=== PATIENT | female | born 1950 | race Caucasian/White ===

== ENCOUNTER 2020-10-20 04:31 | Inpatient (IN) | payer MEDICARE, SELFPAY ==
[2020-10-20 03:45] VITALS: BP 103/81; PULSE 93; RESP 18; TEMP 36; O2SAT 95
--- NOTE | 2020-10-20 03:45 | ADMGEN ---
This patient, Birgit Morgan, was admitted to [address] [place] [address] Room 300-01. Patient/family oriented to hospital policies and general routines including ID bracelet, bed and alarms, visiting hours, pain management, procedures, bathroom and other care routines, personal items, smoking policy, room service/diet, and visiting hours. Information on how to activate the Rapid Response Team has been discussed. Patient/Family are encouraged to report perceived risks to care and to ask questions if they do not understand what they are told or what they should do.
[2020-10-20 03:47] VITALS: BMI 33.7
--- NOTE | 2020-10-20 04:05 | PC.NURSE ---
Report from [facility] by September, RN [id number]
[2020-10-20] MEDS: SODIUM CHLORIDE 0.9% IV 1,000 ML 100 ML IV CONT ×2 (05:39→19:52)
[2020-10-20 06:00] VITALS: BP 101/54; PULSE 88; RESP 20; TEMP 36.5; O2SAT 98
[2020-10-20 06:16] LABS: Basophils Absolute Auto 0.1 K/mm3 (0.0-0.1); Basophils Percent Auto 0.6 % (0.2-1.2); Eosinophils Absolute Auto 0.3 K/mm3 (0-0.3); Eosinophils Percent Auto 2.8 % (0-4.4); Hematocrit 39.8 % (37.0-47.0); Hemoglobin 12.5 g/dL (12.0-15.0); Immature Granulocyte Absolute 0.03 K/mm3 (0.00-0.031); Immature Granulocyte Percent A 0.3 % (0-0.5); Lymphocytes Absolute Auto 2.29 K/mm3 (0.9-3.2); Lymphocytes Percent Auto 22.8 % (18.3-44.2); Mean Corpuscular HGB Conc 31.4 g/dl (32-36); Mean Corpuscular Hemoglobin 28.3 pg (26-34); Mean Corpuscular Volume 90.2 fl (80-100); Mean Platelet Volume 10.9 fl (7.4-10.4); Monocytes Percent Auto 10.2 % (2.6-8.5); Neutrophils Absolute Auto 6.4 K/mm3 (1.3-6.7); Neutrophils Percent Auto 63.3 % (45.5-73.1); Platelet Count Result 202 k/mm3 (150-375); Red Blood Count 4.41 M/mm3 (4.2-5.4); Red Cell Distribution Width 13.6 % (11.5-14.5)
[2020-10-20 06:25] LABS: Anion Gap 7 mmol/L (8-16); Blood Urea Nitrogen 12 mg/dL (7-17); Calcium 8.1 mg/dL (8.4-10.2); Carbon Dioxide 24 mmol/L (22-30); Chloride 108 mmol/L (98-107); Estimated CRCL calculation 55 ml/min; Estimated Glomerular Filt Rate > 60; Glucose 110 mg/dL (65-105); Magnesium 1.7 mg/dL (1.6-2.3); Potassium 3.9 mmol/L (3.4-5.0); Sodium 139 mmol/L (137-145)
--- NOTE | 2020-10-20 07:59 | PM.IMHP ---
H&P: HPI History of Present Illness Date/Time: 10/20/20 07:59 This is a 70-year-old female with past medical history significant for GERD, H pylori, chronic constipation, diverticulosis, recurrent diverticulitis according to patient has have for bouts of diverticulitis in 9 months she presented to emergency room at the town where she lives patient states that she has been constipated was trying to go Tuesday morning while using the toilet when she failed sudden pain that was diffusely localized and bloating she has had a small bowel movements through the weekend in diarrhea form, patient noted increased cramping and pain worsening over the course of about a day which finally forced her to go to the emergency room she took Tylenol extra-strength and applied a heating pad to the area pain is now localized to the left lower quadrant and inguinal fossa worse when doing a Valsalva maneuver or straining herself like getting up from bed or sitting. Patient had a CT of abdomen and pelvis performed outside of this hospital she is from [facility] which is 50 miles from here. PATIENT DENIES ANY CHILLS RIGORS OR FEVER, felt nauseated but no vomiting, decreased appetite as well has not been able to eat anything ever since. Patient had been taking in a combination antibiotic drug with clarithromycin and be small with salicylate for a positive urease breath test in the outpatient setting as well. Preliminary workup hematology and chemistry panels did not show any abnormal findings. Chief Complaint: Abdominal pain. Review of Systems Review of Systems: Narrative: Patient presented to emergency room due to worsening abdominal pain with bloating and diarrhea small bowel movements about 6 total Constitutional: Comments: Decreased appetite no fevers no rigors no chills Cardiovascular: Comments: No chest pain no PND no orthopnea no leg swelling Respiratory: Comments: No shortness of breath no cough no sputum production Gastrointestinal: Comments: Abdominal pain bloating diarrhea and nausea Genitourinary: Comments: No pain or burning with urine Musculoskeletal: Comments: No joint or muscle pain Integumentary/Breasts: Comments: No rashes Neurologic: Comments: No sensorimotor deficit Endocrine: Comments: No heat or cold intolerance no polydipsia polyphagia or polyuria Hematologic/Lymphatic: Comments: No lymphadenopathies [facility] Family History Family History (Updated 10/20/20 @ 04:29 by Carole Quinonez RN) Father Heart failure Mother Social History Social History Smoking status: Never smoker Alcohol intake: current Drinks per week: 1 Substance use: never Spiritual care concerns: No Meds Home Medications and Allergies Home Medications Medication Instructions Recorded Confirmed Type cetirizine [Zyrtec] 10 mg PO DAILY 10/20/20 10/20/20 History ciprofloxacin HCl 500 mg PO Q12H 10/20/20 10/20/20 History neomycin 500 mg PO Q12H 10/20/20 10/20/20 History prucalopride [Motegrity] 2 mg PO DAILY 10/20/20 10/20/20 History rabeprazole 20 mg PO DAILY 10/20/20 10/20/20 History vitamin B complex [B 1 tablet PO DAILY 10/20/20 10/20/20 History Complex-Vitamin B12] Allergies Allergy/AdvReac Type Severity Reaction Status Date / Time grass pollen Allergy Hives Verified 10/20/20 04:03 Sulfa (Sulfonamide Allergy Hives Verified 10/20/20 04:03 Antibiotics) Yjgpeus-Img-Fbl Reductase AdvReac Muscle Pain Verified 10/20/20 04:03 Inhibitor Vital Signs Vital Signs - 24 hr 10/20/20 03:45 10/20/20 06:00 Temperature 96.8 F L 97.7 F Pulse Rate 93 88 Respiratory Rate 18 20 Blood Pressure 103/81 101/54 L Pulse Oximetry 95 98 Exam Narrative: Exam Narrative: Patient is well-appearing sitting in bed in no acute distress Const: General: comfortable, no acute distress, well developed, alert and awake Nutritional Appearance: average body habitus Orientation/consciousness: patient oriented x3 HENMT:
[2020-10-20] MEDS: MORPHINE SULFATE (*CRX) 2 MG/ML INJ IV PUSH (08:47)
--- NOTE | 2020-10-20 09:58 | PM.CNGS ---
Assessment and Plan Assessment and plan (1) Diverticulitis: Code(s): K57.92 - Diverticulitis of intestine, part unspecified, without perforation or abscess without bleeding Status: Acute Assessment and Plan: CT scan report from the [facility] was reviewed and suggests acute diverticulitis of the distal descending colon with small microperforation. No drainable fluid collection or abscess formation. The disc for the CT scan will be taken to Radiology today so this can be reviewed by our radiologist and Dr. Aguirre. We have also requested the Colonoscopy report from Dr. Baptiste at [place], [place] from February of 2020. This is her 4th episode of diverticulitis in the past year. We will continue to treat her with IV Zosyn, bowel rest, IV fluids, and analgesics for now. As she clinically improves, we will start to slowly advance her diet to a low fiber diet. No indication for urgent surgical intervention. We will try to avoid surgery in the acute phase of the diverticulitis, which would give her the best chance of avoiding a colostomy. After a few weeks of treatment, we would plan to see the patient in our office to schedule a laparoscopic sigmoid resection. I discussed the disease process and plan with the patient. Continue to monitor the patient with serial abdominal exams and labs. Thank you for allowing us to see the patient consultation we will continue to follow along with you. (2) Chronic constipation: Code(s): K59.09 - Other constipation Status: Acute Assessment and Plan: Additional Plan I have discussed the patient's case and plan of care with Dr. Aguirre. Also to note, there is question of possible positive urease breath test as an outpatient through her Public Address Servicer, in which she was receiving oral antibiotics for this. Now on famotidine IV while NPO. Would continue PPI and follow-up with GI as scheduled. History of Present Illness Consult details Consult date: 10/20/20 Reason for consult: other (Acute diverticulitis with micro perforation) Requesting physician: Dioni Ruiz MD Narrative: This is a 70-year-old female with a history of multiple episodes of diverticulitis, chronic constipation, and GERD, who was a direct admit to [facility] overnight from [facility] in [place], [place]. She has a longstanding history of chronic constipation, and was recently referred to a cordwainer, Dr. Benito, for this. The patient had her initial episode of diverticulitis requiring hospitalization in December of 2019, which was treated with antibiotics. She had another episode in February of 2020 and August of 2020 that were both treated outpatient with antibiotics. The patient completed her course of oral antibiotics the last week of August, and reportedly all symptoms had resolved at that point. She reports complete compliance of her antibiotics as well. In early September, she had performed an outpatient breath test with her cordwainer and was placed on ciprofloxacin and neomycin due to a positive result. She is currently on these antibiotics. Three days ago, the patient reported feeling constipated. Overnight, she began having left lower quadrant abdominal pain. This felt similar to previous episodes of diverticulitis. She had 1 episode of nausea and vomiting 3 nights ago, but no issues since. No fever or chills. The abdominal pain continued to worsen, and she eventually presented to [facility] ER last night. On review of her chart, labs showed of white blood cell count of 11,100, and were otherwise unremarkable. CT scan of the abdomen and pelvis report suggested findings consistent with acute diverticulitis of the distal descending colon with small micro perforation in the adjacent pericolonic soft tissues. No drainable fluid collection or abscess formation. Vital signs were stable and she was afebrile. The decision was made to transfer the patient to [facility] for
[2020-10-20] MEDS: FAMOTIDINE 20 MG/2 ML VIAL IV PUSH ×2 (11:00→19:59)
[2020-10-20] MEDS: ENOXAPARIN 40 MG/0.4 ML SYRINGE SUB-Q (11:00)
[2020-10-20 14:00] VITALS: BP 97/63; PULSE 56; RESP 20; TEMP 36.6; O2SAT 94
--- NOTE | 2020-10-20 15:54 | PM.PNGS ---
Progress Note: A&P Assessment and Plan (1) Diverticulitis: Code(s): K57.92 - Diverticulitis of intestine, part unspecified, without perforation or abscess without bleeding Status: Acute Assessment and Plan: recurrent acute diverticulitis. It is noted that patient was on some chronic antibiotics with metronidazole and ciprofloxacin prescribed by her heater installer Dr. Benito. Continue bowel rest and antibiotics with p.r.n. analgesics. Will follow with serial abdominal exams and lab work. If diverticulitis can resolve, I would then recommend laparoscopic sigmoidectomy in possibly a month. We will need to obtain and review her colonoscopy report from February. (2) Chronic constipation: Code(s): K59.09 - Other constipation Status: Chronic Assessment and Plan: Could have a diverticular stricture contributing to her constipation. Constipation is very longstanding however. On set of diverticulitis usually associated with an episode of constipation. Plan remains as above. Subjective Subjective Date/Time Seen: 10/20/20 15:54 Patient reports: pain is less Interval history: The patient is a 70-year-old woman whom I was called about early this morning regarding transfer here from [facility]. She lives in [facility]. She has a history of chronic constipation and actually sees a heater installer at [place]. very [employer] I believe named for this. The patient became constipated again about 3 days ago and then started having left lower quadrant abdominal pain. She had nausea and vomiting. The pain worsened and she went to the emergency room room at [facility]. [place] [id number]. [place] scan showed evidence of acute diverticulitis with micro perforation. Per her request, she was transferred here. She received a dose of Zosyn prior to transfer. She has been taking metronidazole and ciprofloxacin chronically at the direction of her heater installer. She was taking these prior to onset of her diverticulitis. Currently she feels comfortable but reports she had pain medication about 4 hours ago. She also reports that this is her 4th episode of acute diverticulitis since last December, about 9 months ago. The 1st episode of diverticulitis she was admitted. She had a colonoscopy in February by in [place]. This was apparently negative but we are requesting the results. She had another episode of diverticulitis in August. Both the February and August episodes were treated as an outpatient. She was seen early this morning about 7:00 a.m. in consultation regarding recurrent acute diverticulitis. Review of Systems Review of Systems: All systems reviewed & are unremarkable except as noted in HPI and below Constitutional: Constitutional: Denies chills, Denies fever(s) and Denies headache(s) Gastrointestinal: Gastrointestinal: Reports as per HPI, Reports abdominal pain, Reports constipation, Reports GI cramping, Reports nausea and Reports vomiting Neurologic: Denies confusion and Denies headache(s) Exam Const: General: comfortable and no acute distress; No confusion Orientation/consciousness: patient oriented x3 and No confusion GI: Inspection: non-distended and scar ( Lower abdominal midline scar) GI Palp: Yes Soft to palpation, Yes Tenderness to palpation present (GI) ( left lower quadrant), Yes Guarding due to palpation present (GI), No Hernia present, No Palpable mass present and No Rebound tenderness present Auscultation: Hypoactive bowel sounds present Neuro: General: patient oriented x3, no focal motor deficits and No confusion Extrem: General: no calf tenderness and no edema Psych: Affect: normal affect Insight: Good insight present (Psych) Judgement: Good judgement present (Psych) Objective Data Vital Signs Vital Signs: Vital Signs - 24 hr 10/20/20 03:45 10/20/20 06:00 10/20/20 14:00 Temperature 36.0 C L 36.5 C 36.6 C Pulse Ra
[2020-10-20] MEDS: MORPHINE SULFATE (*CRX) 4 MG/ML INJ IV PUSH (19:58)
[2020-10-20 23:47] VITALS: BP 111/64; PULSE 79; RESP 18; TEMP 37.7; O2SAT 95
[2020-10-21] MEDS: IBUPROFEN IV 400 MG in SODIUM CHLORIDE 0.9% IV 100 ML 200 MG IVPB (06:07)
[2020-10-21 06:20] LABS: Hematocrit 40.1 % (37.0-47.0); Hemoglobin 12.3 g/dL (12.0-15.0); Mean Corpuscular HGB Conc 30.7 g/dl (32-36); Mean Corpuscular Hemoglobin 28.5 pg (26-34); Mean Corpuscular Volume 92.8 fl (80-100); Mean Platelet Volume 11.5 fl (7.4-10.4); Platelet Count Result 182 k/mm3 (150-375); Red Blood Count 4.32 M/mm3 (4.2-5.4); Red Cell Distribution Width 13.5 % (11.5-14.5); White Blood Count 7.1 K/mm3 (4.5-10.0)
[2020-10-21 06:38] LABS: Anion Gap 7 mmol/L (8-16); Blood Urea Nitrogen 10 mg/dL (7-17); Calcium 8.2 mg/dL (8.4-10.2); Carbon Dioxide 20 mmol/L (22-30); Chloride 108 mmol/L (98-107); Estimated CRCL calculation 61 ml/min; Estimated Glomerular Filt Rate > 60; Glucose 74 mg/dL (65-105); Sodium 135 mmol/L (137-145)
[2020-10-21 08:10] VITALS: BP 126/55; PULSE 82; RESP 20; TEMP 37.2; O2SAT 93
[2020-10-21] MEDS: ENOXAPARIN 40 MG/0.4 ML SYRINGE SUB-Q (09:21)
[2020-10-21] MEDS: FAMOTIDINE 20 MG/2 ML VIAL IV PUSH (09:21)
--- NOTE | 2020-10-21 12:15 | PM.PNGS ---
Progress Note: A&P Assessment and Plan (1) Diverticulitis: Code(s): K57.92 - Diverticulitis of intestine, part unspecified, without perforation or abscess without bleeding Status: Acute Assessment and Plan: Patient clinically improving. Pain nearly resolved. WBC normal today and afebrile. Will allow a clear liquid diet and start slowly advancing. Ordered a Nurse Researcher consult to discuss low fiber diet - she had not followed any specific diet following her previous episodes of diverticulitis. Continue IV antibiotics. Could potentially discharge tomorrow, if patient continues to improve. (2) Chronic constipation: Code(s): K59.09 - Other constipation Status: Chronic Additional Plan I have discussed the plan of care with Dr. Aguirre. Subjective Subjective Date/Time Seen: 10/21/20 12:15 Patient reports: no new complaints, feels better, pain is less, tolerating liquids well, voiding w/o difficulty, flatus, no bowel movement and afebrile Interval history: Patient feeling better today. Pain significantly improved. No nausea or vomiting. No other complaints. Review of Systems Review of Systems: All systems reviewed & are unremarkable except as noted in HPI and below Constitutional: Constitutional: Denies chills and Denies fever(s) Exam Const: General: comfortable, no acute distress and awake Orientation/consciousness: patient oriented x3 GI: Inspection: non-distended GI Palp: Yes Soft to palpation, Yes Tenderness to palpation present (GI) (LLQ, improved), No Guarding due to palpation present (GI) and No Rebound tenderness present Auscultation: normal bowel sounds Skin: General skin exam: normal color Neuro: General: moves all extremities and no focal motor deficits Extrem: General: no clubbing, cyanosis or edema and no calf tenderness Psych: Mental Status: mental status grossly normal Insight: Good insight present (Psych) Judgement: Good judgement present (Psych) Objective Data Vital Signs Vital Signs: Vital Signs - 24 hr 10/20/20 14:00 10/20/20 23:47 10/21/20 08:10 Temperature 97.9 F 99.9 F H 98.9 F Pulse Rate 56 L 79 82 Respiratory Rate 20 18 20 Blood Pressure 97/63 L 111/64 126/55 L Pulse Oximetry 94 95 93 Intake/Output Intake/Output: Intake & Output 10/18/20 10/19/20 10/20/20 04/27/21 23:59 23:59 23:59 23:59 Intake Total 1220 204 Output Total 360 Balance 860 204 Meds/Results Medications: Active Medications Generic Name Dose Route Start Last Admin Trade Name Freq PRN Reason Stop Dose Admin Enoxaparin Sodium 40 mg 10/20/20 09:00 10/21/20 09:21 Enoxaparin 40 Mg/0.4 Ml Syringe SUB-Q 40 mg DAILY JUDY Administration Famotidine 20 mg 10/21/20 21:00 Famotidine 20 Mg Tablet PO Q12HR JUDY Sodium Chloride 1,000 mls @ 40 mls/hr 10/20/20 04:35 10/21/20 09:33 Normal Saline Iv IV CONT 40 mls/hr .Q24H JUDY Infusion Piperacillin/Tazobactam/Dextrose 3.375 gm in 50 mls @ 100 mls/hr 10/20/20 12:00 10/21/20 06:02 Zosyn 3.375 Gm/D5w 50ml Pm IVPB Infused Q6HR JUDY Infusion Ibuprofen 400 mg/ Sodium 104 mls @ 200 mls/hr 10/20/20 08:50 10/21/20 06:35 Chloride IVPB Infused Q6H PRN Infusion Pain Rated 1-3 Morphine Sulfate 2 mg 10/21/20 08:50 Morphine Sulfate (*Crx) 2 Mg/Ml Inj IV PUSH Q2H PRN Pain Rated 4-6 Morphine Sulfate 4 mg 10/20/20 08:50 10/20/20 19:58 Morphine Sulfate (*Crx) 4 Mg/Ml Inj IV PUSH 4 mg Q2H PRN Administration Pain Rated 7-10 Labs Labs: Laboratory Results - last 24 hr 10/21/20 10/21/20 05:33 05:33 WBC 7.1 RBC 4.32 Hgb 12.3 Hct 40.1 MCV 92.8 MCH 28.5 MCHC 30.7 L RDW 13.5 Plt Count 182 MPV 11.5 H Sodium 135 L Potassium 4.0 Chloride 108 H Carbon Dioxide 20 L Anion Gap 7 L BUN 10 Creatinine 0.80 Estim Creat Clear Calc 61 Estimated GFR > 60 Glucose 74 Calcium 8.2 L Quality VTE Prophylaxis VTE proph
--- NOTE | 2020-10-21 13:57 | PM.IMPN ---
Progress Note: A&P Assessment and Plan (1) Diverticulitis: Code(s): K57.92 - Diverticulitis of intestine, part unspecified, without perforation or abscess without bleeding Status: Acute Assessment and Plan: On a clear liquid diet advanced as tolerated Improved Appreciate surgery note Continue antibiotics (2) Acute abdominal pain: Code(s): R10.9 - Unspecified abdominal pain Status: Acute Assessment and Plan: Nearly resolved Supportive care (3) Chronic constipation: Code(s): K59.09 - Other constipation Status: Chronic Assessment and Plan: Follow-up in outpatient setting (4) Helicobacter pylori (H. pylori) infection: Code(s): A04.8 - Other specified bacterial intestinal infections Status: Acute Assessment and Plan: Currently on Zosyn and IV Protonix Follow-up in the outpatient setting Subjective Date/time seen: 10/21/20 13:57 I feel much better Review of Systems Review of Systems: Narrative: Patient was last transfer out from outside Hospital due to diverticulitis. Constitutional: Comments: No fevers no rigors no chills Cardiovascular: Comments: No chest pain no PND no orthopnea Respiratory: Comments: No shortness of breath Gastrointestinal: Comments: Abdominal pain in the left lower quadrant Musculoskeletal: Comments: No muscle aches or joint aches Integumentary/Breasts: Comments: No rashes Neurologic: Comments: No sensorimotor deficit Exam Narrative: Exam Narrative: Patient is laying in bed Const: General: comfortable, no acute distress, well developed, alert and awake Nutritional Appearance: average body habitus Orientation/consciousness: patient oriented x3 HENMT: Head: normal to inspection, normocephalic and atraumatic Ears: hearing grossly normal bilaterally Face and sinus: normal facial exam Eyes: General: appearance normal, both eyes and all related structures Pupils: Equal, round and reactive pupils present EOM: EOMs intact bilaterally Neck: Neck: full ROM, no lymphadenopathy and no JVD Thyroid: thyroid normal Lymphatic: no lymphadenopathy noted Resp: Effort & Inspection: normal respiratory effort and able to speak in complete sentences Auscultation: clear to auscultation bilaterally Cardio: Jugular venous distension: no JVD Rate: regular rate Rhythm: regular rhythm Heart sounds: S1 normal heart sound present and S2 normal heart sound present GI: GI Palp: Yes Soft to palpation, Yes Tenderness to palpation present (GI) (Left lower quadrant) and Yes No hepatosplenomegaly present : General: Yes deferred Skin: Rashes: no rashes Wounds: no wounds Neuro: General: patient oriented x3 and CN's II-XI intact bilaterally Cranial nerves: Yes CN's II-XII intact bilaterally and Yes Equal, round and reactive pupils present Cognition (Neuro): normal cognition Speech: normal speech Gait exam (Neuro): Normal gait present Motor exam (neuro): 5/5 motor strength present throughout Extrem: General: normal to inspection, full ROM, no joint enlargement and no pedal edema Objective Data Vital Signs Vital Signs: Vital Signs - 24 hr 10/20/20 14:00 10/20/20 23:47 10/21/20 08:10 Temperature 97.9 F 99.9 F H 98.9 F Pulse Rate 56 L 79 82 Respiratory Rate 20 18 20 Blood Pressure 97/63 L 111/64 126/55 L Pulse Oximetry 94 95 93 Intake/Output Intake/Output: Intake & Output 10/18/20 10/19/20 10/20/20 10/21/20 23:59 23:59 23:59 23:59 Intake Total 1220 494 Output Total 360 Balance 860 494 Meds/Results Medications: Active Medications Generic Name Dose Route Start Last Admin Trade Name Freq PRN Reason Stop Dose Admin Enoxaparin Sodium 40 mg 10/20/20 09:00 10/21/20 09:21 Enoxaparin 40 Mg/0.4 Ml Syringe SUB-Q 40 mg DAILY JUDY Administration Famotidine 20 mg 10/21/20 21:00 Famotidine 20 Mg Tablet PO Q12HR JUDY Sodium Chloride 1,000 mls @ 40 mls/hr 10/20/20 04:35 10/21/20 09:33
[2020-10-21 14:00] VITALS: BP 112/53; PULSE 67; RESP 20; TEMP 36.6; O2SAT 99
[2020-10-21] MEDS: FAMOTIDINE 20 MG TABLET PO (21:28)
[2020-10-21 22:00] VITALS: BP 122/57; PULSE 68; RESP 18; TEMP 36.4; O2SAT 95
[2020-10-22] MEDS: SODIUM CHLORIDE 0.9% IV 1,000 ML 40 ML IV CONT (04:11)
[2020-10-22] MEDS: diphenhydrAMINE HCl CAP 25 MG CAPSULE PO (04:41)
[2020-10-22 05:22] VITALS: BP 126/74; PULSE 69; RESP 18; TEMP 36.6; O2SAT 96
[2020-10-22 06:31] LABS: Hematocrit 37.9 % (37.0-47.0); Hemoglobin 11.9 g/dL (12.0-15.0); Mean Corpuscular HGB Conc 31.4 g/dl (32-36); Mean Corpuscular Hemoglobin 28.1 pg (26-34); Mean Corpuscular Volume 89.4 fl (80-100); Mean Platelet Volume 11.1 fl (7.4-10.4); Platelet Count Result 220 k/mm3 (150-375); Red Blood Count 4.24 M/mm3 (4.2-5.4); Red Cell Distribution Width 13.2 % (11.5-14.5); White Blood Count 5.4 K/mm3 (4.5-10.0)
[2020-10-22 06:43] LABS: Anion Gap 5 mmol/L (8-16); Blood Urea Nitrogen 7 mg/dL (7-17); Calcium 8.3 mg/dL (8.4-10.2); Carbon Dioxide 23 mmol/L (22-30); Chloride 110 mmol/L (98-107); Estimated CRCL calculation 61 ml/min; Estimated Glomerular Filt Rate > 60; Glucose 81 mg/dL (65-105); Potassium 3.7 mmol/L (3.4-5.0); Sodium 138 mmol/L (137-145)
--- NOTE | 2020-10-22 07:19 | PM.PNGS ---
Progress Note: A&P Assessment and Plan (1) Diverticulitis: Code(s): K57.92 - Diverticulitis of intestine, part unspecified, without perforation or abscess without bleeding Status: Acute Assessment and Plan: advanced to low-fiber, low residue diet. She will go home on this for 2 weeks. She could probably be discharged tomorrow. She has ciprofloxacin and metronidazole already at home. I have instructed her to take these for another 5 days after discharge. I will see her in the office in 2 weeks and schedule her for laparoscopic sigmoidectomy after that visit. Subjective Subjective Date/Time Seen: 10/22/20 07:19 Patient reports: feels better, pain is less ( No abdominal pain), tolerating liquids well, bowel movement and other ( developed dermatitis on her back) Review of Systems Review of Systems: All systems reviewed & are unremarkable except as noted in HPI and below Constitutional: Constitutional: Denies headache(s) Cardiovascular: Cardiovascular: Denies chest pain and Denies dyspnea Respiratory: Respiratory: Denies cough and Denies dyspnea Gastrointestinal: Gastrointestinal: Reports as per HPI Neurologic: Denies confusion and Denies headache(s) Exam Const: General: comfortable and no acute distress; No confusion Orientation/consciousness: patient oriented x3 and No confusion GI: Inspection: non-distended and scar GI Palp: Yes Soft to palpation, Yes Tenderness to palpation present (GI) ( still slightly tender left lower quadrant), No Guarding due to palpation present (GI) and No Rebound tenderness present Auscultation: normal bowel sounds Neuro: General: patient oriented x3, no focal motor deficits and No confusion Extrem: General: no calf tenderness and no edema Psych: Affect: normal affect Insight: Good insight present (Psych) Judgement: Good judgement present (Psych) Objective Data Vital Signs Vital Signs: Vital Signs - 24 hr 10/21/20 08:10 10/21/20 14:00 10/21/20 22:00 Temperature 37.2 C 36.6 C 36.4 C Pulse Rate 82 67 68 Respiratory Rate 20 20 18 Blood Pressure 126/55 L 112/53 L 122/57 L Pulse Oximetry 93 99 95 10/22/20 05:22 Temperature 36.6 C Pulse Rate 69 Respiratory Rate 18 Blood Pressure 126/74 Pulse Oximetry 96 Intake/Output Intake/Output: Intake & Output 10/19/20 10/20/20 10/21/2028/21 23:59 23:59 23:59 23:59 Intake Total 1220 2671 250 Output Total 360 670 Balance 860 2004 250 Meds/Results Medications: Active Medications Generic Name Dose Route Start Last Admin Trade Name Freq PRN Reason Stop Dose Admin Diphenhydramine HCl 25 mg 10/21/20 21:22 10/22/20 04:41 Diphenhydramine Hcl Cap 25 Mg Capsule PO 25 mg Q6H PRN Administration Itching Enoxaparin Sodium 40 mg 10/20/20 09:00 10/21/20 09:21 Enoxaparin 40 Mg/0.4 Ml Syringe SUB-Q 40 mg DAILY JUDY Administration Famotidine 20 mg 10/21/20 21:00 10/21/20 21:28 Famotidine 20 Mg Tablet PO 20 mg Q12HR JUDY Administration Sodium Chloride 1,000 mls @ 40 mls/hr 10/20/20 04:35 10/22/20 04:11 Normal Saline Iv IV CONT 40 mls/hr .Q24H JUDY Administration Piperacillin/Tazobactam/Dextrose 3.375 gm in 50 mls @ 100 mls/hr 10/20/20 12:00 10/22/20 06:11 Zosyn 3.375 Gm/D5w 50ml Pm IVPB 50 mls/hr Q6HR JUDY Administration Ibuprofen 400 mg/ Sodium 104 mls @ 200 mls/hr 10/20/20 08:50 10/21/20 06:35 Chloride IVPB Infused Q6H PRN Infusion Pain Rated 1-3 Morphine Sulfate 2 mg 10/21/20 08:50 Morphine Sulfate (*Crx) 2 Mg/Ml Inj IV PUSH Q2H PRN Pain Rated 4-6 Morphine Sulfate 4 mg 10/20/20 08:50 10/20/20 19:58 Morphine Sulfate (*Crx) 4 Mg/Ml Inj IV PUSH 4 mg Q2H PRN Administration Pain Rated 7-10 Labs Labs: Laboratory Results - last 24 hr 10/22/20 10/22/20 05:45 05:45 WBC 5.4 RBC 4.24 Hgb 11.9 L Hct 37.9 MCV 89.4 MCH 28.1 MCHC 31.4 L RDW 13.2 Plt Count 220 MPV 11.1 H
[2020-10-22] MEDS: ENOXAPARIN 40 MG/0.4 ML SYRINGE SUB-Q (08:21)
[2020-10-22] MEDS: FAMOTIDINE 20 MG TABLET PO ×2 (08:21→20:55)
--- NOTE | 2020-10-22 13:33 | PM.IMPN ---
Progress Note: A&P Assessment and Plan (1) Diverticulitis: Code(s): K57.92 - Diverticulitis of intestine, part unspecified, without perforation or abscess without bleeding Status: Acute Assessment and Plan: Patient now advanced to a low-fiber diet Improved Appreciate surgery note Continue antibiotics (2) Acute abdominal pain: Code(s): R10.9 - Unspecified abdominal pain Status: Acute Assessment and Plan: Nearly resolved Supportive care (3) Chronic constipation: Code(s): K59.09 - Other constipation Status: Chronic Assessment and Plan: Follow-up in outpatient setting (4) Helicobacter pylori (H. pylori) infection: Code(s): A04.8 - Other specified bacterial intestinal infections Status: Acute Assessment and Plan: Currently on Zosyn and IV Protonix Follow-up in the outpatient setting Subjective Date/time seen: 10/22/20 13:33 I feel much better Review of Systems Review of Systems: Narrative: Patient was transfer from started on hospital due to abdominal pain patient was evaluated and found to have diverticulitis. Exam Narrative: Exam Narrative: Patient is laying in bed Const: General: comfortable, no acute distress, well developed, alert and awake Nutritional Appearance: average body habitus Orientation/consciousness: patient oriented x3 HENMT: Head: normal to inspection, normocephalic and atraumatic Ears: hearing grossly normal bilaterally Face and sinus: normal facial exam Eyes: General: appearance normal, both eyes and all related structures Pupils: Equal, round and reactive pupils present EOM: EOMs intact bilaterally Neck: Neck: full ROM, no lymphadenopathy and no JVD Thyroid: thyroid normal Lymphatic: no lymphadenopathy noted Resp: Effort & Inspection: normal respiratory effort and able to speak in complete sentences Auscultation: clear to auscultation bilaterally Cardio: Jugular venous distension: no JVD Rate: regular rate Rhythm: regular rhythm Heart sounds: S1 normal heart sound present and S2 normal heart sound present GI: Inspection: normal to inspection GI Palp: Yes Soft to palpation, Yes No hepatosplenomegaly present and Yes Other GI palpation findings present (No guarding nontender) : General: Yes deferred Skin: Rashes: no rashes Wounds: no wounds Neuro: General: patient oriented x3 and CN's II-XI intact bilaterally Cranial nerves: Yes CN's II-XII intact bilaterally and Yes Equal, round and reactive pupils present Cognition (Neuro): normal cognition Speech: normal speech Gait exam (Neuro): Normal gait present Motor exam (neuro): 5/5 motor strength present throughout Extrem: General: normal to inspection, full ROM, no joint enlargement and no pedal edema Objective Data Vital Signs Vital Signs: Vital Signs - 24 hr 10/21/20 14:00 10/21/20 22:00 10/22/20 05:22 Temperature 97.8 F 97.6 F 97.8 F Pulse Rate 67 68 69 Respiratory Rate 20 18 18 Blood Pressure 112/53 L 122/57 L 126/74 Pulse Oximetry 99 95 96 Intake/Output Intake/Output: Intake & Output 10/19/20 10/20/20 10/21/20 10/22/20 23:59 23:59 23:59 23:59 Intake Total 1220 2674 360 Output Total 360 670 Balance 860 2004 360 Meds/Results Medications: Active Medications Generic Name Dose Route Start Last Admin Trade Name Freq PRN Reason Stop Dose Admin Diphenhydramine HCl 25 mg 10/21/20 21:22 10/22/20 04:41 Diphenhydramine Hcl Cap 25 Mg Capsule PO 25 mg Q6H PRN Administration Itching Enoxaparin Sodium 40 mg 10/20/20 09:00 10/22/20 08:21 Enoxaparin 40 Mg/0.4 Ml Syringe SUB-Q 40 mg DAILY JUDY Administration Famotidine 20 mg 10/21/20 21:00 10/22/20 08:21 Famotidine 20 Mg Tablet PO 20 mg Q12HR JUDY Administration Sodium Chloride 1,000 mls @ 40 mls/hr 10/20/20 04:35 10/22/20 04:11 Normal Saline Iv IV CONT 40 mls/hr .Q24H JUDY Administration Piperacillin/Tazobactam/Dextrose 3.375 gm in 50 m
[2020-10-22 14:00] VITALS: BP 124/84; PULSE 80; RESP 16; TEMP 36.7; O2SAT 96
[2020-10-22] MEDS: ACETAMINOPHEN 325 MG TABLET PO (18:43)
[2020-10-22 22:00] VITALS: BP 133/78; PULSE 72; RESP 16; TEMP 37; O2SAT 97
[2020-10-23 05:51] VITALS: BP 119/71; PULSE 76; RESP 16; TEMP 36.6; O2SAT 96
[2020-10-23 05:53] LABS: Hemoglobin 12.2 g/dL (12.0-15.0); Mean Corpuscular HGB Conc 32.1 g/dl (32-36); Mean Corpuscular Hemoglobin 27.8 pg (26-34); Mean Corpuscular Volume 86.6 fl (80-100); Mean Platelet Volume 11.3 fl (7.4-10.4); Platelet Count Result 242 k/mm3 (150-375); Red Blood Count 4.39 M/mm3 (4.2-5.4); White Blood Count 5.5 K/mm3 (4.5-10.0)
[2020-10-23 06:10] LABS: Anion Gap 6 mmol/L (8-16); Blood Urea Nitrogen 9 mg/dL (7-17); Calcium 8.4 mg/dL (8.4-10.2); Carbon Dioxide 24 mmol/L (22-30); Chloride 112 mmol/L (98-107); Estimated CRCL calculation 69 ml/min; Estimated Glomerular Filt Rate > 60; Glucose 93 mg/dL (65-105); Potassium 3.6 mmol/L (3.4-5.0); Sodium 142 mmol/L (137-145)
[2020-10-23 08:00] VITALS: PULSE 76; RESP 16; O2SAT 96
[2020-10-23] MEDS: FAMOTIDINE 20 MG TABLET PO (09:17)
[2020-10-23] MEDS: ENOXAPARIN 40 MG/0.4 ML SYRINGE SUB-Q (09:17)
--- NOTE | 2020-10-23 11:03 | PM.DS ---
DS: Admitting Diagnosis Admitting Diagnosis Admitting Diagnosis: (1) Diverticulitis: Code(s): K57.92 - Diverticulitis of intestine, part unspecified, without perforation or abscess without bleeding Status: Acute Assessment and Plan: According to what I gather from talking to the patient she has diverticulitis she has had for crisis in [address] performed at outside hospital was significant for diverticulitis however I do not have copies at the present time Overnight hospitalist to report from outside hospital Patient is currently on Zosyn IV fluids and NPO with ice chips only A consult to surgery has been ordered Patient has been seen by surgery Follow surgery recommendations (2) Acute abdominal pain: Code(s): R10.9 - Unspecified abdominal pain Status: Acute Assessment and Plan: Likely secondary to above Supportive care Pain management (3) Helicobacter pylori (H. pylori) infection: Code(s): A04.8 - Other specified bacterial intestinal infections Status: Acute Assessment and Plan: Patient was on combination therapy for this in the outpatient setting Currently on Zosyn Will add Protonix IV (4) Chronic constipation: Code(s): K59.09 - Other constipation Status: Acute Assessment and Plan: Patient has a GI specialist with whom she follows up at a [facility] Supportive care DS: Discharge Diagnosis Discharge Diagnosis (1) Diverticulitis: Code(s): K57.92 - Diverticulitis of intestine, part unspecified, without perforation or abscess without bleeding Status: Acute Assessment and Plan: Patient now advanced to a low-fiber diet Improved Appreciate surgery note Continue antibiotics (2) Acute abdominal pain: Code(s): R10.9 - Unspecified abdominal pain Status: Acute Assessment and Plan: Nearly resolved Supportive care (3) Chronic constipation: Code(s): K59.09 - Other constipation Status: Chronic Assessment and Plan: Follow-up in outpatient setting (4) Helicobacter pylori (H. pylori) infection: Code(s): A04.8 - Other specified bacterial intestinal infections Status: Acute Assessment and Plan: Currently on Zosyn and IV Protonix Follow-up in the outpatient setting DS: Summary Hospital Course Reason for hospitalization: ABDOMINAL PAIN Hospital Course: THIS IS A 70-YEAR-OLD FEMALE WITH PAST MEDICAL HISTORY SIGNIFICANT FOR DIVERTICULOSIS WITH DIVERTICULITIS CHRONIC CONSTIPATION PATIENT PRESENTED TO OUTSIDE HOSPITAL DUE TO ABDOMINAL PAIN NAUSEA VOMITING PATIENT WAS FOUND TO HAVE DIVERTICULITIS AND A RUPTURED DIVERTICULUM SHE WAS TRANSFERRED TO OUR FACILITY SHE WAS PLACED ON MEDICAL MANAGEMENT WITH IV ANTIBIOTICS IV FLUIDS NPO. PATIENT DID WELL SHE WAS THEN STARTED ON A CLEAR LIQUID DIET WHICH WAS ADVANCED TOLERATED TO LOW-FIBER DIET PATIENT WILL FOLLOW-UP IN 2 WEEKS WITH THE SURGERY SERVICE FOR FURTHER MANAGEMENT CONSULTS OBTAINED: GENERAL SURGERY PROCEDURES DONE: NO PROCEDURES Status at Discharge Cognitive/behavioral status at discharge: AAOX3 Functional status at discharge: independent ambulation Time Spent with Patient Time attestation: Total time spent providing and/or coordinating discharge services: Exam Narrative: Exam Narrative: Patient is laying in bed Const: General: comfortable, no acute distress, well developed, alert and awake Nutritional Appearance: average body habitus Orientation/consciousness: patient oriented x3 HENMT: Head: normal to inspection, normocephalic and atraumatic Ears: hearing grossly normal bilaterally Face and sinus: normal facial exam Eyes: General: appearance normal, both eyes and all related structures Pupils: Equal, round and reactive pupils present EOM: EOMs intact bilaterally Neck: Neck: full ROM, no lymphadenopathy and no JVD Thyroid: thyroid normal Lymphatic: no lymphadenopathy noted Resp: Effort & Inspection: normal r
== END 2020-10-23 12:20 | disposition home or self-care (01) | DRG 392 ==
PROVIDERS: Surgery; Admitting Provider Family Medicine; Visit Provider Internal Medicine
DX: K57.20 Diverticulitis of large intestine with perforation and abscess without bleeding (principal); K59.09 Other constipation; B96.81 Helicobacter pylori [H. pylori] as the cause of diseases classified elsewhere; K21.9 Gastro-esophageal reflux disease without esophagitis; Z90.710 Acquired absence of both cervix and uterus
CPT/HCPCS: 36415; 80048; 83735; 85025; 85027; A9270; J1650; J1741; J2270; J2543; J7030

== ENCOUNTER 2020-11-13 13:32 | Outpatient (CLI) | payer MEDICARE, SELFPAY ==
--- NOTE | 2020-11-13 14:40 | ECG_ITS ---
Measurements Intervals [place] Rate: 75 P: -1 NE: 136 QRS: 25 QRSD: 102 T: -12 QT: 399 QTc: 448 Interpretive Statements SINUS RHYTHM BORDERLINE ST-T WAVE ABNORMALITY- INFERIOR LEADS BORDERLINE ECG Electronically Signed On 11-13-2020 15:03:58 CDT by Niko Christensen D.O.
== END 2020-11-13 13:33 | disposition home or self-care (01) ==
LOC: ANHSURGERY 13:36
PROVIDERS: Visit Provider Surgery
DX: Z01.818 Encounter for other preprocedural examination (principal); K57.92 Diverticulitis of intestine, part unspecified, without perforation or abscess without bleeding
CPT/HCPCS: 36415; 86850; 86900; 86901; 93005

== ENCOUNTER → 2020-11-15 01:06 | Outpatient (CLI) | payer MEDICARE, SELFPAY ==
[2020-11-15 19:55] LABS: SARS-CoV-2 RNA PCR Negative
== END ==
PROVIDERS: Visit Provider Surgery
DX: Z01.812 Encounter for preprocedural laboratory examination (principal); Z20.822 Contact with and (suspected) exposure to COVID-19
CPT/HCPCS: C9803; U0003; U0005

== ENCOUNTER 2020-11-19 17:30 | Inpatient (IN) | payer MEDICARE, SELFPAY ==
[2020-11-13 14:00] VITALS: BP 127/76; PULSE 85; RESP 18; TEMP 37; O2SAT 96; BMI 32.7
[2020-11-19] VITALS (15 sets, daily range): BP systolic 88–119; BP diastolic 44–72; PULSE 57–93; RESP 12–18; TEMP 36.3–36.7; O2SAT 92–100
--- NOTE | 2020-11-19 07:32 | WPDHPUPDATE1 ---
History and Physical Update Update Date/Time: 11/19/20 07:32 History and Physical has been reviewed, including an updated exam of the patient. There are NO changes in the patient's condition. Risks, benefits, and alternatives have been discussed and questions answered. Patient agrees to proceed with procedure.
[2020-11-19] MEDS: ACETAMINOPHEN 500 MG TABLET 1000 MG PO (08:31)
[2020-11-19] MEDS: KETOROLAC 15 MG/ML VIAL (*BKC) IV PUSH (08:46)
[2020-11-19] MEDS: LACTATED RINGERS 1,000 ML 30 ML IV CONT ×4 (08:53→16:51)
--- NOTE | 2020-11-19 09:29 | SUR.PREOP ---
instructed pt on possible slight delay in procedure.
--- NOTE | 2020-11-19 09:30 | WPDANESEPPF ---
Anes - Initial Pre Proc Eval Procedure: Operation Date: 11/19/20 10:00 Proposed Procedures p Hand Assisted Laparoscopic Sigmoidectomy - Shahbaz Aguirre MD Date/Time: 11/19/20 09:30 Surgeon: Shahbaz Aguirre MD Pre Op Diagnosis: diverticulitis Patient Data Age: 70 Gender: F Height: 5 ft 3 in Weight: 81.4 kg Last Vital Signs Temp 36.6 C 11/19/20 08:04 Pulse 93 11/19/20 08:04 Resp 16 11/19/20 08:04 BP 119/72 11/19/20 08:04 Pulse Ox 98 11/19/20 08:04 Allergies Allergy/AdvReac Type Severity Reaction Status Date / Time grass pollen Allergy Hives Verified 11/19/20 08:22 Sulfa (Sulfonamide Allergy Hives Verified 11/19/20 08:22 Antibiotics) [id number]-Emp Reductase AdvReac Muscle Pain Verified 11/19/20 08:22 Inhibitor Home Medications Medication Instructions Recorded Confirmed Type cetirizine [Zyrtec] 10 mg PO DAILY 10/20/20 11/19/20 History rabeprazole 20 mg PO DAILY 10/20/20 11/19/20 History cyanocobalamin (vitamin B-12) 500 mcg SUBLINGUAL DAILY 11/13/20 11/19/20 History epinephrine 0.3 ml SUBCUT ONCE PRN 11/13/20 11/19/20 History lactobacillus combination no.8 3,000 mmu cells PO EVERY OTHER DAY 11/13/20 11/19/20 History [Adult Probiotic] polyethylene glycol 3350 [Miralax] 34 g PO DAILY 11/13/20 11/19/20 History Patient hx anesthesia problems: none Family hx anesthesia problems: none PMFSH Past Medical History Medical History Chronic constipation Diverticulitis GERD (gastroesophageal reflux disease) Surgical History Surgical History H/O section History of total abdominal hysterectomy Family History Family History Father Heart failure Mother Social History Social History Smoking status: Never smoker Alcohol intake: current Drinks per week: 1 Substance use: never Living arrangements: other Additional living arrangements comments: SIGNIFICANT OTHER Gender identity (if verbalized by the patient): Female Spiritual care concerns: No Anes - Eval Final PreProcedure Day of Procedure 11/19/20 09:30 Patient weight: obese Heart: regular rate and rhythm Lungs: clear to auscultation Airway: Mallampati scale class II Neurological: alert and oriented Last oral intake: >/= 8 hours ASA classification: III Emergent: no Anesthetic plan: proceed Anesthesia type and monitoring: general ETT and standard monitoring Informed Consent: The patient's anesthetic plan and its attendant risks and benefits were discussed with the patient/family/POA. Questions were solicited and answers provided to the satisfaction of the patient/family/POA.
[2020-11-19] MEDS: ALVIMOPAN 12 MG CAPSULE PO (10:01)
[2020-11-19] MEDS: ceFAZolin 2 GM/D5W 50 ML 2 GM/50 ML BAG IVPB (11:44)
[2020-11-19] MEDS: fentaNYL CITRATE INJ (*CRX) 100 MCG/2 ML VIAL 25 MCG IV PUSH (15:36)
--- NOTE | 2020-11-19 16:08 | PM.PROC ---
Procedure Note - Detailed Date of procedure: 11/19/20 Pre-op diagnosis: diverticulitis Diverticulitis Post-op diagnosis: same Procedure performed: Hand access laparoscopic sigmoid colon resection with hand-sewn anastomosis Description of procedure: The patient was taken to surgery and induced into general anesthesia. The abdomen was prepped and draped. The patient was in lithotomy in Pierce stirrups. Rectal tube and rectal irrigation had been carried out. Roberson catheter was placed. The hand access port in the lower abdominal midline was marked on the skin. Local was infiltrated into the skin and the subcutaneous. Incision was made and dissection was carried down through the subcutaneous down to the fascia. There were multiple Ethibond sutures from previous surgery. These were each removed. We then dissected through the midline fascia and gained access to the peritoneal cavity. A couple more Ethibond were found and removed. This incision was extended the length of the wound. The Heath was then placed in the abdomen. I felt for any adhesions around the hand access incision and none were noted. We then placed the GelPort. With a hand in the abdomen, I placed the left-sided 10 11 trocar. Local anesthetic was infiltrated prior to placement for each of the trocars. With the left-sided trocar placed, we insufflated the abdomen. Under direct vision we then placed an upper abdominal midline 10 11 trocar and a right-sided 12 mm trocar. General laparoscopic exploration was carried out. The LigaSure was used for literally all the intra-abdominal dissection. A few adhesions in the pelvis were taken down with LigaSure. The small bowel and cecum were brought out of the pelvis and packed off with laparotomy sponges. From there, we took down the lateral peritoneal attachments to the descending colon and sigmoid colon. The sigmoid colon was quite thickened particularly at its distal aspect which was likely the source of the diverticulitis and stricture. Once the descending colon was mobilized, the sigmoid colon was a fairly short segment and no need for splenic flexure mobilization was found. The left ureter was found and carefully avoided. Adhesions to the sigmoid colon were divided. Minimal bleeding occurred. Eventually the sigmoid was completely mobilized. I then divided the right-sided peritoneal attachments to the sigmoid starting in the area of the sacral promontory and proceeding down to the upper rectum. I then divided the superior rectal artery and divided across the mesentery. I extended this division retrograde up to the end of the descending colon. The LigaSure was then used to divide the mesentery up to the proximal line of resection at the distal descending colon. The LigaSure was also used to divide the mesentery up to the distal line of resection, the upper rectum. I rechecked the ureter and any areas of dissection for bleeding. None were found and the ureter looked fine. We then stopped insufflation and removed the GelPort, leaving the Heath wound guard in place. I brought up the mobilized sigmoid colon. Using a TLC 75 stapler, I divided the distal descending colon. I then used the TLC 75 stapler and divided the upper rectum. The sigmoid specimen was then passed off labeled sigmoid colon. I recheck the area of the pelvis for any bleeding and did not see any. I brought the 2 ends of bowel in proximity. Both the descending colon and the rectum were very small diameter. They were well-vascularized and each end was under no tension. I removed some of the fatty tissue from both the rectal end and the distal descending colon in so that the anastomosis could be securely sutured to the bowel wall. From there, a hand-sewn 2 layer anastomosis was performed. The posterior outer layer of interrupted 4 0 silk Lembert sutures was placed. I then used the cautery to remove the staple line from both the distal descending colon and the upper rectum. The posteri
[2020-11-19] MEDS: LACTATED RINGERS 1,000 ML 100 ML IV CONT (18:10)
[2020-11-19] MEDS: HYDROcodone/acetaminophen (*CRX) 5-325 MG TABLET 1 TAB PO ×2 (18:13→23:01)
--- NOTE | 2020-11-19 18:44 | ADMGEN ---
This patient, Birgit Morgan, was admitted to 2 Medical Room 250-01 from [facility] report received from Andie. Patient/family oriented to hospital policies and general routines including ID bracelet, bed and alarms, visiting hours, pain management, procedures, bathroom and other care routines, personal items, smoking policy, room service/diet, and visiting hours. Information on how to activate the Rapid Response Team has been discussed. Patient/Family are encouraged to report perceived risks to care and to ask questions if they do not understand what they are told or what they should do.
[2020-11-19] MEDS: HYDROcodone/acetaminophen (*CRX) 10-325 MG TABLET 1 TAB PO (19:29)
[2020-11-19] MEDS: ENOXAPARIN 30 MG/0.3 ML SYRINGE SUB-Q (21:02)
[2020-11-19] MEDS: PANTOPRAZOLE 40 MG TABLET PO (21:02)
[2020-11-20] MEDS: LACTATED RINGERS 1,000 ML 100 ML IV CONT ×2 (03:35→13:45)
[2020-11-20 05:38] LABS: Hematocrit 37.5 % (37.0-47.0); Hemoglobin 12.1 g/dL (12.0-15.0); Mean Corpuscular HGB Conc 32.3 g/dl (32-36); Mean Corpuscular Hemoglobin 27.9 pg (26-34); Mean Corpuscular Volume 86.4 fl (80-100); Mean Platelet Volume 11.3 fl (7.4-10.4); Platelet Count Result 179 k/mm3 (150-375); Red Blood Count 4.34 M/mm3 (4.2-5.4); Red Cell Distribution Width 13.3 % (11.5-14.5); White Blood Count 15.6 K/mm3 (4.5-10.0)
[2020-11-20 05:53] LABS: Anion Gap 7 mmol/L (8-16); Blood Urea Nitrogen 13 mg/dL (7-17); Calcium 8.3 mg/dL (8.4-10.2); Carbon Dioxide 23 mmol/L (22-30); Chloride 106 mmol/L (98-107); Estimated CRCL calculation 67 ml/min; Estimated Glomerular Filt Rate > 60; Glucose 129 mg/dL (65-105); Potassium 4.4 mmol/L (3.4-5.0); Sodium 136 mmol/L (137-145)
[2020-11-20 06:00] VITALS: BP 108/54; PULSE 63; RESP 16; TEMP 36.4; O2SAT 95
[2020-11-20] MEDS: HYDROcodone/acetaminophen (*CRX) 10-325 MG TABLET 1 TAB PO ×4 (06:10→20:16)
[2020-11-20] MEDS: ENOXAPARIN 30 MG/0.3 ML SYRINGE SUB-Q ×2 (08:35→20:15)
[2020-11-20] MEDS: PANTOPRAZOLE 40 MG TABLET PO ×2 (08:35→20:15)
[2020-11-20] MEDS: LORATADINE 10 MG TABLET PO (08:35)
--- NOTE | 2020-11-20 11:01 | PM.PNGS ---
Progress Note: A&P Assessment and Plan (1) Diverticulitis: Code(s): K57.92 - Diverticulitis of intestine, part unspecified, without perforation or abscess without bleeding Status: Acute Assessment and Plan: POD#1 and patient is doing well. Pain is well controlled with current analgesics. Continue clear liquids. Encouraged increased activity and walking the halls today. Encouraged IS use. (2) Chronic constipation: Code(s): K59.09 - Other constipation Status: Chronic Additional Plan Discussed plan of care with Dr. Aguirre. Subjective Subjective Date/Time Seen: 11/20/20 11:01 Post Op day: 1 (GUNNAR sigmoid colon resection) Patient reports: tolerating liquids well, no flatus, no bowel movement and afebrile Interval history: Patient doing well this morning. She reports feeling sore in her abdomen with movement and getting up. Her pain is tolerable and she been able to walk in the room and walked to the bathroom. No nausea or vomiting. Tolerating clear liquids. No other complaints at this time. Review of Systems Review of Systems: All systems reviewed & are unremarkable except as noted in HPI and below Constitutional: Constitutional: Reports as per HPI, Reports no additional constitutional complaints, Denies chills and Denies fever(s) Cardiovascular: Cardiovascular: Reports no additional cardiovascular complaints, Denies chest pain, Denies leg edema and Denies dyspnea Respiratory: Respiratory: Reports no additional respiratory complaints, Denies cough and Denies dyspnea Gastrointestinal: Gastrointestinal: Reports as per HPI and Reports no additional gastrointestinal complaints Neurologic: Reports system reviewed and no additional complaints, except as documented, Denies Abnormal speech present and Denies focal weakness Exam Const: General: comfortable, no acute distress, alert and awake Orientation/consciousness: patient oriented x3 Resp: Effort & Inspection: normal respiratory effort Auscultation: clear to auscultation bilaterally Cardio: Rate: regular rate Rhythm: regular rhythm GI: Inspection: non-distended and incision (Incisions clean and dry, minimal ecchymosis around incisions) GI Palp: Yes Soft to palpation, Yes Tenderness to palpation present (GI) (Appropriate postop tenderness) and No Guarding due to palpation present (GI) Auscultation: Hypoactive bowel sounds present Skin: General skin exam: normal color Neuro: General: moves all extremities and no focal motor deficits Extrem: General: no clubbing, cyanosis or edema and no calf tenderness Psych: Mental Status: mental status grossly normal Insight: Good insight present (Psych) Judgement: Good judgement present (Psych) Objective Data Vital Signs Vital Signs: Vital Signs - 24 hr 11/19/20 15:07 11/19/20 15:20 11/19/20 15:35 Temperature 97.6 F Pulse Rate 73 68 67 Respiratory Rate 12 12 12 Blood Pressure 93/44 L 92/53 L 97/50 L Pulse Oximetry 97 97 100 11/19/20 15:50 11/19/20 16:05 11/19/20 16:20 Temperature Pulse Rate 68 60 69 Respiratory Rate 12 12 12 Blood Pressure 90/48 L 88/52 L 90/58 L Pulse Oximetry 99 92 93 11/19/20 16:35 11/19/20 16:50 11/19/20 17:05 Temperature 97.8 F Pulse Rate 61 61 62 Respiratory Rate 12 12 16 Blood Pressure 89/53 L 88/59 L 106/59 L Pulse Oximetry 92 95 96 11/19/20 17:20 11/19/20 17:29 11/19/20 17:35 Temperature 97.5 F L 97.5 F L Pulse Rate 58 L 64 62 Respiratory Rate 12 12 16 Blood Pressure 89/54 L 95/59 L 114/58 L Pulse Oximetry 94 96 98 11/19/20 17:50 11/19/20 22:00 11/20/20 06:00 Temperature 97.4 F L 98.0 F 97.5 F L Pulse Rate 64 63 63 Respiratory Rate 16 18 16 Blood Pressure 110/54 L 112/54 L 108/54 L Pulse Oximetry 96 96 95 Intake/Output Intake/Output: Intake & Output 11/17/20 11/18/20 11/19/20 11/20/20 23:59 23:59 23:59 23:59 Intake Total 1850 1640 Output Total 45 600 Balance 1805 1040 Meds/Results Medications: Active Medi
--- NOTE | 2020-11-20 13:49 | WPDANESPN ---
Anes - Prog Note Post-Op Date/Time: 11/20/20 13:49 Cardiovascular status: normal Respiratory status: normal Airway patency: baseline Mental status: baseline Post-Op hydration status: normal Vital Signs: Last Vital Signs Temp 36.4 C L 11/20/20 06:00 Pulse 63 11/20/20 06:00 Resp 16 11/20/20 06:00 BP 108/54 L 11/20/20 06:00 Pulse Ox 95 11/20/20 06:00 Pain Score (VAS): 0/10. Patient resting in bed at time of assessment, appears comfortable. PCT at bedside. Patient described moderate pain with relief with PRN meds. I/O: Intake & Output 11/19/20 11/20/20 11/20/20 23:59 07:59 15:59 Intake Total 1800 1400 1240 Output Total 45 600 Balance 3494 559 7917 Laboratory Tests 11/20/20 05:03 11/20/20 05:03 11/20/20 11/20/20 05:03 05:03 WBC 15.6 H RBC 4.34 Hgb 12.1 Hct 37.5 MCV 86.4 MCH 27.9 MCHC 32.3 RDW 13.3 Plt Count 179 MPV 11.3 H Sodium 136 L Potassium 4.4 Chloride 106 Carbon Dioxide 23 Anion Gap 7 L BUN 13 Creatinine 0.70 Estim Creat Clear Calc 67 Estimated GFR > 60 Glucose 129 H Calcium 8.3 L Post-procedural complaints: none Patient Feedback: Patient satisfied with anesthetic care.
[2020-11-20 14:00] VITALS: BP 107/64; PULSE 71; RESP 16; TEMP 37.1; O2SAT 93
[2020-11-20 20:00] VITALS: PULSE 70; RESP 18; O2SAT 92
[2020-11-20] MEDS: ALVIMOPAN 12 MG CAPSULE PO (20:15)
[2020-11-20 20:22] VITALS: BP 120/78; PULSE 70; RESP 18; TEMP 36.3; O2SAT 92
[2020-11-21 05:26] VITALS: BP 126/76; PULSE 70; RESP 18; TEMP 36.1; O2SAT 92
[2020-11-21 05:26] LABS: Hematocrit 35.4 % (37.0-47.0); Hemoglobin 11.3 g/dL (12.0-15.0); Mean Corpuscular HGB Conc 31.9 g/dl (32-36); Mean Corpuscular Hemoglobin 28.3 pg (26-34); Mean Corpuscular Volume 88.7 fl (80-100); Mean Platelet Volume 11.3 fl (7.4-10.4); Platelet Count Result 178 k/mm3 (150-375); Red Blood Count 3.99 M/mm3 (4.2-5.4); Red Cell Distribution Width 13.5 % (11.5-14.5); White Blood Count 12.9 K/mm3 (4.5-10.0)
[2020-11-21] MEDS: HYDROcodone/acetaminophen (*CRX) 10-325 MG TABLET 1 TAB PO ×3 (05:34→15:34)
[2020-11-21 05:38] LABS: Anion Gap 5 mmol/L (8-16); Blood Urea Nitrogen 12 mg/dL (7-17); Calcium 8.2 mg/dL (8.4-10.2); Carbon Dioxide 25 mmol/L (22-30); Chloride 107 mmol/L (98-107); Estimated CRCL calculation 67 ml/min; Estimated Glomerular Filt Rate > 60; Glucose 107 mg/dL (65-105); Potassium 3.9 mmol/L (3.4-5.0); Sodium 137 mmol/L (137-145)
[2020-11-21] MEDS: PANTOPRAZOLE 40 MG TABLET PO ×2 (08:04→20:07)
[2020-11-21] MEDS: polyethylene glycoL 3350 17 GM POWD.PACK 34 GM PO (08:04)
[2020-11-21] MEDS: ALVIMOPAN 12 MG CAPSULE PO ×2 (08:04→20:07)
[2020-11-21] MEDS: ENOXAPARIN 30 MG/0.3 ML SYRINGE SUB-Q ×2 (08:04→20:07)
[2020-11-21] MEDS: LORATADINE 10 MG TABLET PO (08:04)
--- NOTE | 2020-11-21 11:08 | PM.PNGS ---
Progress Note: A&P Assessment and Plan (1) Diverticulitis: Code(s): K57.92 - Diverticulitis of intestine, part unspecified, without perforation or abscess without bleeding Status: Chronic Assessment and Plan: Tolerating a low-fiber, low residue diet. Still no flatus or BM. Encourage ambulation. Continue inpatient care. P.r.n. analgesics. Continue to monitor exam and daily labs. Continue Alvimopam. (2) Chronic constipation: Code(s): K59.09 - Other constipation Status: Chronic Assessment and Plan: Back on Metamucil. Subjective Subjective Date/Time Seen: 11/21/20 11:08 Post Op day: 2 Patient reports: pain is less ( Still requiring narcotic analgesics.), no flatus, no bowel movement and afebrile Review of Systems Review of Systems: All systems reviewed & are unremarkable except as noted in HPI and below Constitutional: Constitutional: Denies headache(s) Cardiovascular: Cardiovascular: Denies chest pain and Denies dyspnea Respiratory: Respiratory: Denies cough and Denies dyspnea Gastrointestinal: Gastrointestinal: Reports as per HPI, Reports bloating, Reports constipation, Denies heartburn, Denies nausea and Denies vomiting Neurologic: Denies confusion and Denies headache(s) Exam Const: General: comfortable and no acute distress; No confusion Orientation/consciousness: patient oriented x3 and No confusion GI: GI Palp: Yes Soft to palpation, Yes Tenderness to palpation present (GI), No Guarding due to palpation present (GI) and No Rebound tenderness present Auscultation: normal bowel sounds Neuro: General: patient oriented x3, no focal motor deficits and No confusion Extrem: General: no calf tenderness and no edema Psych: Affect: normal affect Insight: Good insight present (Psych) Judgement: Good judgement present (Psych) Objective Data Vital Signs Vital Signs: Vital Signs - 24 hr 11/20/20 14:00 11/20/20 20:00 11/20/20 20:22 Temperature 37.1 C 36.3 C L Pulse Rate 71 70 70 Respiratory Rate 16 18 18 Blood Pressure 107/64 120/78 Pulse Oximetry 93 92 92 11/21/20 05:26 Temperature 36.1 C L Pulse Rate 70 Respiratory Rate 18 Blood Pressure 126/76 Pulse Oximetry 92 Intake/Output Intake/Output: Intake & Output 05/25/21 11/19/20 11/20/20 11/21/20 23:59 23:59 23:59 23:59 Intake Total 1850 3780 860 Output Total 45 1300 Balance 1805 2480 860 Meds/Results Medications: Active Medications Generic Name Dose Route Start Last Admin Trade Name Freq PRN Reason Stop Dose Admin Acetaminophen 500 mg 11/19/20 17:30 Acetaminophen 500 Mg Tablet PO Q6H PRN Mild Pain (1-3) or Fever Hydrocodone Bitart/Acetaminophen 1 tab 11/19/20 17:30 11/19/20 23:01 Hydrocodone/Acetaminophen (*Crx) 5-325 Mg Tablet PO 1 tab Q4H PRN Administration Pain Rated 4-6 Hydrocodone Bitart/Acetaminophen 1 tab 11/20/20 16:23 11/21/20 09:33 Hydrocodone/Acetaminophen (*Crx) 10-325 Mg Tablet PO 1 tab Q4H PRN Administration Pain Rated 7-10 Alvimopan 12 mg 11/20/20 21:00 11/21/20 08:04 Alvimopan 12 Mg Capsule PO 11/27/20 09:01 12 mg Q12HR JUDY Administration Enoxaparin Sodium 30 mg 11/19/20 21:00 11/21/20 08:04 Enoxaparin 30 Mg/0.3 Ml Syringe SUB-Q 30 mg Q12HR JUDY Administration Loratadine 10 mg 11/20/20 09:00 11/21/20 08:04 Loratadine 10 Mg Tablet PO 10 mg QAM JUDY Administration Morphine Sulfate 2 mg 11/19/20 17:30 Morphine Sulfate (*Crx) 2 Mg/Ml Inj IV PUSH Q2H PRN Pain Rated 4-6 Morphine Sulfate 4 mg 11/19/20 17:30 Morphine Sulfate (*Crx) 4 Mg/Ml Inj IV PUSH Q2H PRN Pain Rated 7-10 Naloxone HCl 0.1 mg 11/19/20 17:30 Naloxone Hcl 0.4 Mg/Ml Vial IV PUSH Q2M PRN Opiate Reversal Ondansetron HCl 4 mg 11/19/20 17:30 Ondansetron Inj 4 Mg/2 Ml Vial IV PUSH Q4H PRN Nausea And Vomiting Pantoprazole Sodium 40 mg 11/19/20 21:00 11/21/20 08:0
[2020-11-21 14:00] VITALS: BP 110/66; PULSE 83; RESP 14; TEMP 36.2; O2SAT 93
[2020-11-21] MEDS: KETOROLAC 30 MG/ML VIAL (*BKC) IV PUSH (17:44)
[2020-11-21 22:00] VITALS: BP 116/57; PULSE 67; RESP 16; TEMP 36.2; O2SAT 94
[2020-11-22] MEDS: KETOROLAC 30 MG/ML VIAL (*BKC) IV PUSH (00:05)
[2020-11-22 05:26] LABS: Anion Gap 3 mmol/L (8-16); Blood Urea Nitrogen 11 mg/dL (7-17); Calcium 8.4 mg/dL (8.4-10.2); Carbon Dioxide 29 mmol/L (22-30); Chloride 109 mmol/L (98-107); Estimated CRCL calculation 59 ml/min; Estimated Glomerular Filt Rate > 60; Glucose 85 mg/dL (65-105); Potassium 3.7 mmol/L (3.4-5.0); Sodium 141 mmol/L (137-145)
[2020-11-22 05:35] LABS: Hematocrit 36.4 % (37.0-47.0); Hemoglobin 11.4 g/dL (12.0-15.0); Mean Corpuscular HGB Conc 31.3 g/dl (32-36); Mean Corpuscular Hemoglobin 27.8 pg (26-34); Mean Corpuscular Volume 88.8 fl (80-100); Mean Platelet Volume 11.3 fl (7.4-10.4); Platelet Count Result 191 k/mm3 (150-375); Red Cell Distribution Width 13.8 % (11.5-14.5); White Blood Count 9.9 K/mm3 (4.5-10.0)
[2020-11-22 06:00] VITALS: BP 101/64; PULSE 73; RESP 16; TEMP 36.4; O2SAT 93
[2020-11-22] MEDS: ALVIMOPAN 12 MG CAPSULE PO (08:30)
[2020-11-22] MEDS: ENOXAPARIN 30 MG/0.3 ML SYRINGE SUB-Q (08:31)
[2020-11-22] MEDS: LORATADINE 10 MG TABLET PO (08:32)
[2020-11-22] MEDS: polyethylene glycoL 3350 17 GM POWD.PACK 34 GM PO (08:32)
[2020-11-22] MEDS: PANTOPRAZOLE 40 MG TABLET PO (08:32)
[2020-11-22 10:21] VITALS: O2SAT 93
--- NOTE | 2020-11-22 12:03 | PM.DS ---
DS: Admitting Diagnosis Admitting Diagnosis Admitting Diagnosis: diverticulitis, chronic constipation DS: Discharge Diagnosis Discharge Diagnosis (1) Diverticulitis: Code(s): K57.92 - Diverticulitis of intestine, part unspecified, without perforation or abscess without bleeding Status: Chronic Assessment and Plan: s/p GUNNAR sigmoid colectomy, routine postop care, f/u 2wks (2) Chronic constipation: Code(s): K59.09 - Other constipation Status: Chronic Assessment and Plan: cont home bowel regimen DS: Summary Hospital Course Reason for hospitalization: diverticulitis, chronic constipation Hospital Course: Pt is a 70 y/o F presenting c diverticulitis and chronic issues c constipation. Pt taken to OR on 11/19 for sigmoid colectomy by Dr. Aguirre, please see op report for details. Postop, pt has done well on surgical floor. Pt reports pain has been well controlled c po analgesia. Pt has slowly had ROBF and is brionna reg diet. Pt has been OOB s issue. Pt will be dc'd home c routine postop instructions and po analgesia. Pt to f/u c Dr. Aguirre in 2 wks. Status at Discharge Functional status at discharge: independent ambulation Overall status at discharge: patient is progressing back to baseline Time Spent with Patient Time attestation: Total time spent providing and/or coordinating discharge services: Time spent: Less than 30 minutes Exam Const: General: cooperative, comfortable and no acute distress Nutritional Appearance: obese Orientation/consciousness: patient oriented x3 Limitations: no limitations Resp: Effort & Inspection: normal respiratory effort Auscultation: clear to auscultation bilaterally Cardio: Rate: regular rate Rhythm: regular rhythm GI: Inspection: normal to inspection and incision GI Palp: Yes Soft to palpation and Yes Tenderness to palpation present (GI) DS: Data Data Completed and Pending Completed studies during hospitalization: Pending at discharge 11/19/20 13:40 Surgical [PTH] Routine Labs on day of discharge: Labs from last 24 hours 11/22/20 11/22/20 04:56 04:56 WBC 9.9 RBC 4.10 L Hgb 11.4 L Hct 36.4 L MCV 88.8 MCH 27.8 MCHC 31.3 L RDW 13.8 Plt Count 191 MPV 11.3 H Sodium 141 Potassium 3.7 Chloride 109 H Carbon Dioxide 29 Anion Gap 3 L BUN 11 Creatinine 0.80 Estim Creat Clear Calc 59 Estimated GFR > 60 Glucose 85 Calcium 8.4 Discharge Plan Discharge Attending physician on discharge: Shahbaz Aguirre Discharging Clinician: Doretha Trevizo Anticipated Discharge Date/Time: 11/22/20 12:01 Patient Disposition: Home, Self-Care Activity: may shower, no straining and as tolerated Diet: regular Wound Care Instructions: incision open to air Discharge Instructions: Ambulate 3-4 x per day and as tolerated. No lifting over 15-20lbs. May bathe or shower. Stairs are OK. May drive a car in 3 days. Patient Instructions: Antibiotic Form Stand Alone Forms: General Discharge Information Follow-up/Referrals: Shahbaz Aguirre MD [Physician] - Keep Reg. Scheduled Appt. Discharge Medications: New hydrocodone-acetaminophen 5-325 mg tablet 1 - 2 tablet PO Q6H PRN (Reason: pain) Qty: 15 RF: 0 ibuprofen 600 mg tablet 600 mg PO Q6H PRN (Reason: pain) Qty: 14 RF: 0 Continued rabeprazole 20 mg tablet,delayed release (DR/EC) 20 mg PO DAILY RF: 0 cetirizine [Zyrtec] 10 mg Tablet 10 mg PO DAILY RF: 0 polyethylene glycol 3350 [Miralax] 17 gram/dose Powder 34 g PO DAILY RF: 0 Adult Probiotic 3 billion cell Capsule 3,000 mmu cells PO EVERY OTHER DAY RF: 0 cyanocobalamin (vitamin B-12) 500 mcg Tablet, Sublingual 500 mcg SUBLINGUAL DAILY RF: 0 epinephrine 0.3 mg/0.3 mL auto-injector 0.3 ml subcut ONCE PRN (Reason: Allergic Reaction) RF: 0 Date of admission: 11/19/20 17:30 Primary Care Provider: Brenda Grady Admitting
[2020-11-22] MEDS: NYSTATIN 100,000 UNITS/ML SUSP 5 ML ORAL.SUSP PO (12:34)
== END 2020-11-22 13:45 | disposition home or self-care (01) | DRG 331 ==
LOC: ANH2MED 17:32
PROVIDERS: Admitting Provider Surgery; PCP Family Medicine; Visit Provider Surgery
PROC: 0D1E4Z4 Bypass Large Intestine to Cutaneous, Percutaneous Endoscopic Approach (ICD-10-PCS; principal; 2020-11-19 10:00)
DX: K57.32 Diverticulitis of large intestine without perforation or abscess without bleeding (principal); K59.09 Other constipation; E66.9 Obesity, unspecified; Z68.31 Body mass index [BMI] 31.0-31.9, adult; Z88.2 Allergy status to sulfonamides; K21.9 Gastro-esophageal reflux disease without esophagitis; K66.0 Peritoneal adhesions (postprocedural) (postinfection)
CPT/HCPCS: 36415; 80048; 85027; 88307; 88309; A9270; C1713; C1729; J0690; J1100; J1170; J1650; J1885; J2250; J2405; J2704; J2710; J3010; J7030; J7120

== ENCOUNTER 2020-11-22 22:34 | Observation (INO) | payer MEDICARE, SELFPAY ==
--- NOTE | ~2020-11-22 | XR_ITS ---
EXAMINATION: XR chest 2V DATE: 11/22/2020 22:57 INDICATION: Fever. Generalized pain. TECHNIQUE: Frontal and lateral views of the chest were obtained. COMPARISON: None. FINDINGS: There is small pleural effusions. There are airspace opacities at the lung bases. No pneumo thorax. The heart size is normal. There is right paratracheal widening, likely tortuous brachiocephal ic vessels. IMPRESSION: 1. Small pleural effusions. 2. Airspace opacities at the lung bases, consistent with atelectasis or less likely pneumonia. Reviewed, dictated and finalized at location A. IMPRESSION: 1. Small pleural effusions. 2. Airspace opacities at the lung bases, consistent with atelectasis or less li gilbert pneumonia.
--- NOTE | ~2020-11-22 | XR_ITS ---
EXAMINATION: XR chest 2V DATE: 11/24/2020 11:15 INDICATION: Coarse lung zones. TECHNIQUE: Frontal and lateral views of the chest were obtained. COMPARISON: Chest 2 views 11/22/2020 FINDINGS: There are small pleural effusions. There are airspace opacities at the lung bases, left wor se than right. No pneumothorax. The heart size is normal. Right paratracheal widening may be tortuous brachiocephalic vessels. IMPRESSION: 1. Small pleural effusions. 2. Airspace opacities at the lung bases with mild worsening on the left, consistent with atelectasis or less likely pneumonia. Reviewed, dictated and finalized at location A. IMPRESSION: 1. Small pleural effusions. 2. Airspace opacities at the lung bases with mild worsening on the left, consis tent with atelectasis or less likely pneumonia.
[2020-11-22 22:35] VITALS: BP 118/70; PULSE 95; RESP 18; TEMP 37.2; O2SAT 95
--- NOTE | 2020-11-22 22:55 | PC.NURSE ---
Pt to XY at this time, alert and upright on stretcher during transport out of ED.
[2020-11-22] MEDS: SODIUM CHLORIDE 0.9% IV 1,000 ML 999 ML IV CONT (23:03)
[2020-11-22] MEDS: ONDANSETRON INJ 4 MG/2 ML VIAL IV PUSH (23:04)
[2020-11-22] MEDS: fentaNYL CITRATE INJ (*CRX) 100 MCG/2 ML VIAL 50 MCG IV PUSH (23:04)
[2020-11-22 23:18] LABS: Basophils Absolute Auto 0.1 K/mm3 (0.0-0.1); Basophils Percent Auto 0.4 % (0.2-1.2); Eosinophils Absolute Auto 0.4 K/mm3 (0-0.3); Eosinophils Percent Auto 3.4 % (0-4.4); Hematocrit 39.1 % (37.0-47.0); Hemoglobin 12.7 g/dL (12.0-15.0); Immature Granulocyte Absolute 0.05 K/mm3 (0.00-0.031); Immature Granulocyte Percent A 0.4 % (0-0.5); Lymphocytes Absolute Auto 2.72 K/mm3 (0.9-3.2); Lymphocytes Percent Auto 21.7 % (18.3-44.2); Mean Corpuscular HGB Conc 32.5 g/dl (32-36); Mean Corpuscular Hemoglobin 28.3 pg (26-34); Mean Corpuscular Volume 87.3 fl (80-100); Mean Platelet Volume 10.9 fl (7.4-10.4); Monocytes Absolute Auto 0.8 K/mm3 (0.1-0.6); Monocytes Percent Auto 6.6 % (2.6-8.5); Neutrophils Absolute Auto 8.5 K/mm3 (1.3-6.7); Neutrophils Percent Auto 67.5 % (45.5-73.1); Platelet Count Result 240 k/mm3 (150-375); Red Blood Count 4.48 M/mm3 (4.2-5.4); Red Cell Distribution Width 13.6 % (11.5-14.5); White Blood Count 12.5 K/mm3 (4.5-10.0)
[2020-11-22 23:28] LABS: Anion Gap 5 mmol/L (8-16); Blood Urea Nitrogen 8 mg/dL (7-17); Calcium 9.1 mg/dL (8.4-10.2); Carbon Dioxide 28 mmol/L (22-30); Chloride 108 mmol/L (98-107); Estimated CRCL calculation 60 ml/min; Estimated Glomerular Filt Rate > 60; Glucose 102 mg/dL (65-105); Lactic Acid Reflex 1.4 mmol/L (0.7-2.1); Potassium 3.6 mmol/L (3.4-5.0); Sodium 141 mmol/L (137-145)
[2020-11-22 23:33] VITALS: BP 119/68; PULSE 90; RESP 15; TEMP 36.9; O2SAT 94
[2020-11-22 23:41] LABS: Add Urine Microscopic? YES; Appearance Urine Clear (Clear); Bacteria Urine Trace /hpf; Bilirubin Urine Negative (Negative); Blood Urine 1+ (Negative); Color Urine Straw (Yellow); Glucose Urine UA Negative (Negative); Ketones Urine Negative (Negative); Leukocyte Esterase Ur 3+ LEU/UL (Negative); Mucus Urine Rare /lpf; Nitrate Urine Negative (Negative); Protein Urine Negative (Negative); Specific Grav Ur 1.009 (1.001-1.035); Squamous Epithelial Cell Urine Moderate /hpf (Few); Urobilinogen Urine Negative mg/dL (<2.0); WBC Urine >75 /hpf
[2020-11-23] VITALS (10 sets, daily range): BP systolic 105–132; BP diastolic 48–67; PULSE 73–92; RESP 16–20; TEMP 36.4–37.9; O2SAT 93–95; BMI 32.8
--- NOTE | 2020-11-23 00:40 | PC.NURSE ---
Pt requesting pain medication at this time, rated abdominal pain 6/10. EDP made aware.
--- NOTE | 2020-11-23 01:16 | ED.GENADULT ---
HPI - General Adult General Chief complaint: Abdominal Pain Stated complaint: post op fever Time Seen by Provider: 11/22/20 22:43 History of Present Illness HPI narrative: Patient is a 70-year-old female who presents ER with fever. Patient reports temp was 100.4 ?F at home. She is having terrible body aches. This is making her abdomen hurt. Patient is recently postop from a partial colectomy related to diverticulitis. She had been healing well and was discharged from the hospital today. Patient denies runny nose/sore throat/productive cough. She has no urinary frequency urgency or dysuria. Patient feels like she may have forced her discharge today and feels like she needs to be back in the hospital given the fact that she has fever. Patient denies abdominal distention. She has been having loose brown stools. Related Data Home Medications Medication Instructions Recorded Confirmed cetirizine [Zyrtec] 10 mg PO DAILY 10/20/20 11/19/20 rabeprazole 20 mg PO DAILY 10/20/20 11/19/20 Adult Probiotic 3,000 mmu cells PO EVERY OTHER DAY 11/13/20 11/19/20 cyanocobalamin (vitamin B-12) 500 mcg SUBLINGUAL DAILY 11/13/20 11/19/20 epinephrine 0.3 ml SUBCUT ONCE PRN 11/13/20 11/19/20 polyethylene glycol 3350 [Miralax] 34 g PO DAILY 11/13/20 11/19/20 Allergies Allergy/AdvReac Type Severity Reaction Status Date / Time grass pollen Allergy Hives Verified 11/22/20 22:47 Sulfa (Sulfonamide Allergy Hives Verified 11/22/20 22:47 Antibiotics) morphine AdvReac Hives Verified 11/22/20 22:47 [id number]-[id number]-Cqw Reductase AdvReac Muscle Pain Verified 11/22/20 22:47 Inhibitor Review of Systems Review of Systems: All systems reviewed & are unremarkable except as noted in HPI and below Constitutional: Constitutional: Denies chills, Reports fatigue and Reports fever(s) ENT: Denies nasal congestion and Denies sore throat Cardiovascular: Cardiovascular: Denies chest pain and Denies radiating jaw, neck or arm pain Respiratory: Respiratory: Denies cough and Denies dyspnea Gastrointestinal: Gastrointestinal: Reports abdominal pain, Denies diarrhea, Denies nausea and Denies vomiting Genitourinary: Genitourinary: Denies nocturia, Denies dysuria and Denies urinary incontinence PMFSH Past Medical History Medical History (Updated 11/23/20 @ 01:34 by Tyron Quintero MD) Chronic constipation Diverticulitis GERD (gastroesophageal reflux disease) Helicobacter pylori (H. pylori) infection Surgical History Surgical History H/O section History of total abdominal hysterectomy Family History Family History Father Heart failure Mother Social History Social History Smoking status: Never smoker Alcohol intake: never Drinks per week: 1 Substance use: never Substance use type: does not use Additional living arrangements comments: SIGNIFICANT OTHER Gender identity (if verbalized by the patient): Female Spiritual care concerns: No Exam Narrative: Exam Narrative: GENERAL: Well-appearing, well-nourished, and in no acute distress. HEAD: Normocephalic, atraumatic. ENT: Dry mucous membranes. NECK: Supple. CHEST: Clear to auscultation. No respiratory distress. HEART: Regular rate and rhythm. Normal peripheral pulses. ABDOMEN: Soft, well-healing surgical scars, mild diffuse discomfort, nondistended. EXTREMITIES: Normal range of motion. No edema. SKIN: Warm, dry, no rash. NEURO: Alert and oriented x3. Course Course Emergency Course: Discussed with general surgery. They have accepted patient to their service. Vital Signs Vital signs: Vital Signs Temperature 98.9 F 11/22/20 22:35 Pulse Rate 95 11/22/20 22:35 Respiratory Rate 18 11/22/20 22:35 Blood Pressure 118/70 11/22/20 22:35 Pulse Oximetry 95 11/22/20 22:
[2020-11-23] MEDS: fentaNYL CITRATE INJ (*CRX) 100 MCG/2 ML VIAL 50 MCG IV PUSH ×3 (01:41→06:56)
--- NOTE | 2020-11-23 01:47 | PC.NURSE ---
Spoke to Astrid on 3rd Med/Surg to give full report on pt. Astrid informed me that Mekhi, RN assigned to Rm [id number], is busy and will call when available.
--- NOTE | 2020-11-23 03:24 | ADMGEN ---
This patient, Birgit Morgan, was admitted to [facility] Surg Room 327-01. Patient/family oriented to hospital policies and general routines including ID bracelet, bed and alarms, visiting hours, pain management, procedures, bathroom and other care routines, personal items, smoking policy, room service/diet, and visiting hours. Information on how to activate the Rapid Response Team has been discussed. Patient/Family are encouraged to report perceived risks to care and to ask questions if they do not understand what they are told or what they should do.
[2020-11-23] MEDS: ACETAMINOPHEN 325 MG TABLET 650 MG PO ×4 (03:38→21:54)
[2020-11-23] MEDS: SODIUM CHLORIDE 0.9% IV 1,000 ML 125 ML IV CONT ×3 (07:03→23:32)
--- NOTE | 2020-11-23 07:26 | PM.IMHP ---
H&P: HPI History of Present Illness Date/Time: 11/23/20 07:26 Pt presented to ED overnight c/o fevers, worsening lower abd/suprapubic pain. Pt also reports temp of 100.4 and body aches. Chief Complaint: abdominal pain, fever Review of Systems Constitutional: Constitutional: Reports body ache(s), Reports chills, Reports fatigue, Reports fever(s), Reports lethargy, Reports malaise, Reports poor appetite and Reports weakness Eyes: Eyes: Reports no additional eye complaints ENT: Reports system reviewed and no additional complaints, except as documented Cardiovascular: Cardiovascular: Reports no additional cardiovascular complaints Respiratory: Respiratory: Reports no additional respiratory complaints Gastrointestinal: Gastrointestinal: Reports abdominal pain, Reports change in bowel habits, Reports GI cramping, Reports diarrhea, Reports loose stools, Denies nausea and Denies vomiting Genitourinary: Genitourinary: Denies hematuria, Denies nocturia, Denies dysuria and Denies urinary urgency Musculoskeletal: Musculoskeletal: Reports no additional musculoskeletal complaints Integumentary/Breasts: Skin/Breast: Reports system reviewed and no additional complaints, except as docu Neurologic: Reports system reviewed and no additional complaints, except as documented Psychiatric: Psychiatric: Reports no additional psychiatric complaints Endocrine: Endocrine: Reports no additional endocrine complaints PMFSH Past Medical History Medical History Chronic constipation Diverticulitis GERD (gastroesophageal reflux disease) Helicobacter pylori (H. pylori) infection Surgical History Surgical History H/O section History of total abdominal hysterectomy Family History Family History Father Heart failure Mother Social History Social History Smoking status: Never smoker Alcohol intake: never Drinks per week: 1 Substance use: never Substance use type: does not use Additional living arrangements comments: SIGNIFICANT OTHER Gender identity (if verbalized by the patient): Female Spiritual care concerns: No Meds Home Medications and Allergies Home Medications Medication Instructions Recorded Confirmed Type cetirizine [Zyrtec] 10 mg PO DAILY 10/20/20 11/23/20 History rabeprazole 20 mg PO DAILY 10/20/20 11/23/20 History Adult Probiotic 3,000 mmu cells PO EVERY OTHER DAY 11/13/20 11/23/20 History cyanocobalamin (vitamin B-12) 500 mcg SUBLINGUAL DAILY 11/13/20 11/23/20 History epinephrine 0.3 ml SUBCUT ONCE PRN 11/13/20 11/23/20 History polyethylene glycol 3350 [Miralax] 34 g PO DAILY 11/13/20 11/23/20 History hydrocodone-acetaminophen 1 - 2 tablet PO Q6H PRN #15 tablet 11/21/20 11/23/20 Rx ibuprofen 600 mg PO Q6H PRN #14 tablet 11/21/20 11/23/20 Rx nystatin 5 ml PO QID #120 ml 11/22/20 11/23/20 Rx Allergies Allergy/AdvReac Type Severity Reaction Status Date / Time grass pollen Allergy Hives Verified 11/22/20 22:47 Sulfa (Sulfonamide Allergy Hives Verified 11/22/20 22:47 Antibiotics) morphine AdvReac Hives Verified 11/22/20 22:47 [id number]-Rri-Kzs Reductase AdvReac Muscle Pain Verified 11/22/20 22:47 Inhibitor Vital Signs Vital Signs - 24 hr 11/22/20 22:35 11/22/20 23:33 11/23/20 00:30 Temperature 37.2 C 36.9 C Pulse Rate 95 90 Respiratory Rate 18 15 Blood Pressure 118/70 119/68 Pulse Oximetry 95 94 95 11/23/20 00:41 11/23/20 01:34 11/23/20 02:35 Temperature 37.6 C 37.7 C H Pulse Rate 89 87 87 Respiratory Rate 16 19 19 Blood Pressure 108/48 L 119/67 105/61 Pulse Oximetry 94 93 94 11/23/20 03:18 11/23/20 03:38 Temperature 37.9 C H 37.9 C H Pulse Rate 92 Respiratory Rate 20 Blood Pressure 132/63 Pulse Oximetry 94 Exam
[2020-11-23] MEDS: HYDROcodone/acetaminophen (*CRX) 5-325 MG TABLET 1 TAB PO ×2 (09:10→15:04)
--- NOTE | 2020-11-23 21:38 | PC.NURSE ---
Spoke to Dr. Trevizo about patient having hives on her back potentially from fentanyl. Patient was not established with a hospitalist. He said to stop the fentanyl and put in an order for Benadryl.
[2020-11-23] MEDS: diphenhydrAMINE HCl CAP 25 MG CAPSULE PO (21:47)
[2020-11-24] MEDS: ONDANSETRON INJ 4 MG/2 ML VIAL IV PUSH (04:52)
[2020-11-24] MEDS: ACETAMINOPHEN 325 MG TABLET 650 MG PO ×2 (05:22→14:55)
--- NOTE | 2020-11-24 05:25 | PC.NURSE ---
Patient woke up around 4:30 and asked to walk around, stated she felt horrible .. when asked to describe it she said she was very nauseated and in pain. I gave her Zofran as ordered and checked on her shortly after she stated little improvement but the color returned to her face and she was more relaxed. She asked for tylenol to help with the belly pain and I gave it to her along with edita mist and saltines in hopes of calming her stomach. Will continue to check in with her.
[2020-11-24 06:00] VITALS: BP 127/52; PULSE 66; RESP 18; TEMP 36.3; O2SAT 95
[2020-11-24 06:14] LABS: Hematocrit 36.3 % (37.0-47.0); Hemoglobin 11.5 g/dL (12.0-15.0); Mean Corpuscular HGB Conc 31.7 g/dl (32-36); Mean Corpuscular Volume 88.3 fl (80-100); Mean Platelet Volume 11.3 fl (7.4-10.4); Platelet Count Result 190 k/mm3 (150-375); Red Blood Count 4.11 M/mm3 (4.2-5.4); Red Cell Distribution Width 13.7 % (11.5-14.5)
[2020-11-24 06:28] LABS: Anion Gap 8 mmol/L (8-16); Blood Urea Nitrogen 9 mg/dL (7-17); Calcium 8.4 mg/dL (8.4-10.2); Carbon Dioxide 20 mmol/L (22-30); Chloride 110 mmol/L (98-107); Estimated CRCL calculation 78 ml/min; Estimated Glomerular Filt Rate > 60; Glucose 76 mg/dL (65-105); Potassium 3.6 mmol/L (3.4-5.0); Sodium 138 mmol/L (137-145)
[2020-11-24] MEDS: SODIUM CHLORIDE 0.9% IV 1,000 ML 125 ML IV CONT (07:37)
[2020-11-24 08:38] LABS: NT Pro B Type Natriuretic Pept 574 pg/mL (5-100)
--- NOTE | 2020-11-24 10:14 | PM.IMCN ---
Assessment and Plan Assessment and plan (1) Acute UTI: Code(s): N39.0 - Urinary tract infection, site not specified Status: Acute Assessment and Plan: reviewed UA patient has leukocytosis positive nitrate continue Rocephin for now pending culture (2) Chronic constipation: Code(s): K59.09 - Other constipation Status: Chronic Assessment and Plan: give laxative as tolerated (3) Fluid overload: Code(s): E87.70 - Fluid overload, unspecified Status: Acute Assessment and Plan: DC IV fluid daily weight diuresis HPI Data of Consult Consult date: 11/24/20 Requesting Physician: Doretha Trevizo MD Primary Care Provider: JUDD,JOLEEN Solis Consult Narrative Reason for consult: fluid overload Narrative: Birgit Morgan is a 70 year old female with past medical history of diverticulitis status post Hand access laparoscopic sigmoid colon resection with hand-sewn anastomosis ,was done ,patient was recently discharged from the hospital, she was not feeling well ,patient was complaining of fever no aggravating or relieving factor also she was complaining of suprapubic pain urinalysis showed UTI patient was started on IV antibiotics Patient complains of generalized lower extremity edema medicine was consulted for medical management of fluid overload patient complains of lower extremity edema worsening gradually also she is complaining of bloating and constipation Review of Systems Review of Systems: All systems reviewed & are unremarkable except as noted in HPI and below PMFSH Past Medical History Medical History Chronic constipation Diverticulitis GERD (gastroesophageal reflux disease) Helicobacter pylori (H. pylori) infection Surgical History Surgical History H/O section History of total abdominal hysterectomy Family History Family History Father Heart failure Mother Social History Social History Smoking status: Never smoker Alcohol intake: never Drinks per week: 1 Substance use: never Substance use type: does not use Additional living arrangements comments: SIGNIFICANT OTHER Gender identity (if verbalized by the patient): Female Spiritual care concerns: No Meds Home Medications and Allergies Home Medications Medication Instructions Recorded Confirmed Type cetirizine [Zyrtec] 10 mg PO DAILY 10/20/20 11/23/20 History rabeprazole 20 mg PO DAILY 10/20/20 11/23/20 History Adult Probiotic 3,000 mmu cells PO EVERY OTHER DAY 11/13/20 11/23/20 History cyanocobalamin (vitamin B-12) 500 mcg SUBLINGUAL DAILY 11/13/20 11/23/20 History epinephrine 0.3 ml SUBCUT ONCE PRN 11/13/20 11/23/20 History polyethylene glycol 3350 [Miralax] 34 g PO DAILY 11/13/20 11/23/20 History hydrocodone-acetaminophen 1 - 2 tablet PO Q6H PRN #15 tablet 11/21/20 11/23/20 Rx ibuprofen 600 mg PO Q6H PRN #14 tablet 11/21/20 11/23/20 Rx nystatin 5 ml PO QID #120 ml 11/22/20 11/23/20 Rx Allergies Allergy/AdvReac Type Severity Reaction Status Date / Time grass pollen Allergy Hives Verified 11/22/20 22:47 Sulfa (Sulfonamide Allergy Hives Verified 11/22/20 22:47 Antibiotics) fentanyl AdvReac Hives Verified 11/23/20 21:37 morphine AdvReac Hives Verified 11/22/20 22:47 Jnimzca-Mqp-Gkz Reductase AdvReac Muscle Pain Verified 11/22/20 22:47 Inhibitor Vital Signs Vital Signs - 24 hr 11/23/20 14:00 11/23/20 21:12 11/23/20 21:34 Temperature 97.8 F 97.6 F Pulse Rate 86 81 73 Respiratory Rate 20 18 Blood Pressure 112/64 116/63 Pulse Oximetry 94 93 93 11/24/20 06:00 Temperature 97.4 F L Pulse Rate 66 Respiratory Rate 18 Blood Pressure 127/52 L Pulse Oximetry 95 Exam Const: Gener
--- NOTE | 2020-11-24 10:45 | PM.PNGS ---
Progress Note: A&P Assessment and Plan (1) Acute UTI: Code(s): N39.0 - Urinary tract infection, site not specified Status: Acute Assessment and Plan: better, cont abx (2) Diverticulitis: Code(s): K57.92 - Diverticulitis of intestine, part unspecified, without perforation or abscess without bleeding Status: Chronic Assessment and Plan: routine postop care, encourage OOB/IS (3) Fluid overload: Code(s): E87.70 - Fluid overload, unspecified Status: Acute Assessment and Plan: hold IVF, encourage po, med consult Subjective Subjective Date/Time Seen: 11/24/20 10:45 reports she feels swollen , also c/o some crampy abd discomfort Review of Systems Review of Systems: All systems reviewed & are unremarkable except as noted in HPI and below Exam Const: General: cooperative, comfortable and no acute distress Orientation/consciousness: patient oriented x3 Resp: Effort & Inspection: normal respiratory effort Auscultation: crackles and diminished lung sounds Cardio: Rate: regular rate Rhythm: regular rhythm GI: Inspection: normal to inspection, distended and incision GI Palp: Yes Soft to palpation and Yes Tenderness to palpation present (GI) Other: soft, sl dist, lilia TTP, incisions C/DI Objective Data Vital Signs Vital Signs: Vital Signs - 24 hr 11/23/20 14:00 11/23/20 21:12 11/23/20 21:34 Temperature 36.6 C 36.4 C Pulse Rate 86 81 73 Respiratory Rate 20 18 Blood Pressure 112/64 116/63 Pulse Oximetry 94 93 93 11/24/20 06:00 Temperature 36.3 C L Pulse Rate 66 Respiratory Rate 18 Blood Pressure 127/52 L Pulse Oximetry 95 Intake/Output Intake/Output: Intake & Output 11/21/20 11/22/20 11/23/20 11/24/20 23:59 23:59 23:59 23:59 Intake Total 5310 1760 Output Total 1300 Balance 4010 1760 Meds/Results Medications: Active Medications Generic Name Dose Route Start Last Admin Trade Name Freq PRN Reason Stop Dose Admin Acetaminophen 650 mg 11/23/20 01:29 11/24/20 05:22 Acetaminophen 325 Mg Tablet PO 650 mg Q4H PRN Administration Mild Pain (1-3) or Fever Hydrocodone Bitart/Acetaminophen 1 tab 11/23/20 01:29 11/23/20 15:04 Hydrocodone/Acetaminophen (*Crx) 5-325 Mg Tablet PO 1 tab Q4H PRN Administration Pain Rated 4-6 Diphenhydramine HCl 25 mg 11/23/20 21:40 11/23/20 21:47 Diphenhydramine Hcl Cap 25 Mg Capsule PO 25 mg Q6H PRN Administration Itching Famotidine 20 mg 11/24/20 21:00 Famotidine 20 Mg Tablet PO Q12HR [facility] Furosemide 40 mg 11/25/20 09:00 Furosemide 40 Mg Tablet PO 11/27/20 09:01 DAILY [facility] Ceftriaxone Sodium/Dextrose 1 gm in 50 mls @ 100 mls/hr 11/23/20 22:00 11/23/20 21:43 Rocephin 1 Gm/D5w 50 Ml IVPB Infused Q24H [facility] Infusion Ondansetron HCl 4 mg 11/23/20 01:29 11/24/20 04:52 Ondansetron Inj 4 Mg/2 Ml Vial IV PUSH 4 mg Q4H PRN Administration Nausea Polyethylene Glycol 17 gm 11/24/20 10:45 Polyethylene Glycol 3350 17 Gm Powd.Pack PO QAM [facility] Radiology Results: ITS Impressions Chest X-Ray 11/23/20 08:26 IMPRESSION: 1. Small pleural effusions. 2. Airspace opacities at the lung bases, consistent with atelectasis or less likely pneumonia. Labs Labs: Laboratory Results - last 24 hr 11/24/20 11/24/20 11/24/20 05:16 05:16 05:16 WBC 9.0 RBC 4.11 L Hgb 11.5 L Hct 36.3 L MCV 88.3 MCH 28.0 MCHC 31.7 L RDW 13.7 Plt Count 190 MPV 11.3 H Sodium 138 Potassium 3.6 Chloride 110 H Carbon Dioxide 20 L Anion Gap 8 BUN 9 Creatinine 0.60 L Estim Creat Clear Calc 78 Estimated GFR > 60 Glucose 76 Calcium 8.4 NT-Pro-B Natriuret Pep 574 H
[2020-11-24 14:00] VITALS: BP 117/81; PULSE 82; RESP 16; TEMP 36.8; O2SAT 97
[2020-11-24] MEDS: FUROSEMIDE 40 MG TABLET PO (14:56)
[2020-11-24] MEDS: PANTOPRAZOLE 40 MG TABLET PO (18:38)
--- NOTE | 2020-11-24 19:20 | PC.NURSE ---
Acetaminophen at 0522 found on pt bed side table this AM. Pt stated she had asked to wait until she felt less nauseated. Asked pt if she needed it for pain at 0730, and she stated she did not. I disposed of medication, but I am unable to undo the charting. Made extension service specialist in charge aware, and she states she is unable to undo the documentation, either.
[2020-11-24 21:54] VITALS: BP 116/72; PULSE 73; RESP 20; TEMP 36.9; O2SAT 94
[2020-11-25 05:38] LABS: Hematocrit 37.3 % (37.0-47.0); Mean Corpuscular HGB Conc 32.2 g/dl (32-36); Mean Corpuscular Volume 86.9 fl (80-100); Mean Platelet Volume 10.4 fl (7.4-10.4); Platelet Count Result 248 k/mm3 (150-375); Red Blood Count 4.29 M/mm3 (4.2-5.4); Red Cell Distribution Width 13.4 % (11.5-14.5); White Blood Count 7.7 K/mm3 (4.5-10.0)
[2020-11-25 05:49] LABS: Anion Gap 7 mmol/L (8-16); Blood Urea Nitrogen 8 mg/dL (7-17); Calcium 8.8 mg/dL (8.4-10.2); Carbon Dioxide 23 mmol/L (22-30); Chloride 110 mmol/L (98-107); Estimated CRCL calculation 68 ml/min; Estimated Glomerular Filt Rate > 60; Glucose 91 mg/dL (65-105); Potassium 3.5 mmol/L (3.4-5.0); Sodium 140 mmol/L (137-145)
[2020-11-25 05:54] VITALS: BP 129/61; PULSE 74; RESP 18; TEMP 36.4; O2SAT 93
[2020-11-25 05:57] LABS: NT Pro B Type Natriuretic Pept 738 pg/mL (5-100)
--- NOTE | 2020-11-25 07:22 | PM.DS ---
DS: Admitting Diagnosis Admitting Diagnosis Admitting Diagnosis: Fever lower abdominal pain abnormal urinalysis recent sigmoidectomy for diverticulosis DS: Discharge Diagnosis Discharge Diagnosis (1) Acute UTI: Code(s): N39.0 - Urinary tract infection, site not specified Status: Acute (2) Fluid overload: Code(s): E87.70 - Fluid overload, unspecified Status: Acute (3) Diverticulitis: Code(s): K57.92 - Diverticulitis of intestine, part unspecified, without perforation or abscess without bleeding Status: Chronic DS: Summary Hospital Course Hospital Course: patient is a 70-year-old woman who was taken to surgery on November 19 for hand access laparoscopic sigmoidectomy by Dr. blanchard. This was done for multiple bouts of recurrent diverticulitis with possibly some obstructive symptoms and chronic constipation. Following surgery she had a relatively unremarkable recovery and was discharged home on postop day 3. , 11/22/[address] trevizo. At home, she developed some low-grade fevers and suprapubic pain. She came back to the emergency room where she had an abnormal urinalysis with pyuria and some bacteriuria. [place] [address]. She only had a Roberson catheter in place overnight during her colon resection surgery. Ultimately urine cultures came back contaminated specimen rather than a UTI. However patient did improve. She was treated with ceftriaxone. Hospitalist service was consulted and gave her diuretics. She had some loose stools and incontinence but this stopped when she was admitted. Her white blood cell count returned to normal. She was not taking any pain medications at all by November 25, 2020. She was eating solid food and tolerating this well. She is discharged now in good condition. Status at Discharge Overall status at discharge: patient is progressing back to baseline Time Spent with Patient Time attestation: Total time spent providing and/or coordinating discharge services: Time spent: Less than 30 minutes Exam Const: General: comfortable and no acute distress; No confusion Orientation/consciousness: patient oriented x3 and No confusion GI: Inspection: non-distended and incision ( all incisions dry and healing well) GI Palp: Yes Soft to palpation, Yes Tenderness to palpation present (GI) ( Mild appropriate tenderness), No Guarding due to palpation present (GI), No Hernia present, No Palpable mass present and No Rebound tenderness present Auscultation: normal bowel sounds Neuro: General: patient oriented x3, no focal motor deficits and No confusion Extrem: General: no calf tenderness and no edema Psych: Affect: normal affect Insight: Good insight present (Psych) Judgement: Good judgement present (Psych) DS: Data Data Completed and Pending Labs on day of discharge: Labs from last 24 hours 11/25/20 11/25/20 11/24/20 05:23 05:23 05:16 WBC 7.7 RBC 4.29 Hgb 12.0 Hct 37.3 MCV 86.9 MCH 28.0 MCHC 32.2 RDW 13.4 Plt Count 248 MPV 10.4 Sodium 140 Potassium 3.5 Chloride 110 H Carbon Dioxide 23 Anion Gap 7 L BUN 8 Creatinine 0.70 Estim Creat Clear Calc 68 Estimated GFR > 60 Glucose 91 Calcium 8.8 NT-Pro-B Natriuret Pep 738 H 574 H Discharge Plan Discharge Attending physician on discharge: Doretha Trevizo Consulting providers: ; Mary Escudero M.A. Discharging Clinician: Shahbaz Blanchard Anticipated Discharge Date/Time: 11/25/20 08:38 Patient Disposition: Home, Self-Care Activity: may shower, no straining and as tolerated Diet: regular Wound Care Instructions: incision open to air Discharge Instructions: Ambulate 3-4 x per day and as tolerated. No lifting over 20lbs. May bathe or shower. Stairs are OK. May drive a car in 2 days. Patient Instructions: Antibiotic Form, Urinary Tract Infection in Women (GEN), Pain Management (GEN)
--- NOTE | 2020-11-25 08:24 | PM.IMPN ---
Progress Note: A&P Assessment and Plan (1) Acute UTI: Code(s): N39.0 - Urinary tract infection, site not specified Status: Acute Assessment and Plan: reviewed UA patient has leukocytosis positive nitrate continue Rocephin Will send patient home with PO antibiotics (2) Chronic constipation: Code(s): K59.09 - Other constipation Status: Chronic Assessment and Plan: Laxatives on hold (3) Fluid overload: Code(s): E87.70 - Fluid overload, unspecified Status: Acute Assessment and Plan: DC IV fluid BNP 738 daily weight diuresis 40mg PO Lasix last dose today Time Spent With Patient Time with patient: 25 - 35 minutes Subjective Date/time seen: 11/25/20 08:24 Patient is 70-year-old female with past medical history of diverticulitis had a colon resection on 11/19/2020. Patient states that she is feeling better today and that she is ready to go home. Dr. Blanchard has told her she be discharged. Patient did state that she is having some frequency and urgency when she urinates and urinary dysfunction. Talked to patient about taken antibiotics at home upon discharge. Urine culture did come back inconclusive stating that it was possible contamination. However patient does state that she is doing little better with the antibiotics on board. Patient also stated that she got Lasix yesterday and that she has urinated a lot since she has gotten the Lasix. BNP is little elevated at 738, and she will receiving 40 mg p.o. Lasix today. Patient denies chest pain, shortness of breath, abdominal pain, nausea, vomiting, diarrhea, numbness and tingling, headache, sweats or chills, fevers, lightheadedness, or dizziness. RN did state the patient is worried about being constipated, and that patient would like to take MiraLax. Current said that she would talk to Dr. blanchard about laxatives at this time. Review of Systems Review of Systems: All systems reviewed & are unremarkable except as noted in HPI and below Exam Const: General: cooperative, healthy appearing, comfortable, no acute distress, well developed, alert, awake and Physically active Nutritional Appearance: average body habitus, well nourished and overweight Orientation/consciousness: patient oriented x3 Limitations: no limitations HENMT: Head: normal to inspection Ears: hearing grossly normal bilaterally General nose exam: Normal external nose present Mouth: Yes Normal oral and palatal mucosa present, Yes lip normal and Yes tongue normal Teeth and gingiva: abnormal tooth and associated gingiva and poor dentition Eyes: General: appearance normal, both eyes and all related structures Alignment and Position: alignment normal Eyelids: eyelids normal Conjunctivae: conjunctivae normal Neck: Neck: normal visual inspection, full ROM, trachea midline and supple Thyroid: thyroid normal Chest: Chest palpation & inspection: normal inspection of the chest Resp: Effort & Inspection: normal respiratory effort, able to speak in complete sentences and no cough Auscultation: clear to auscultation bilaterally Cardio: Jugular venous distension: no JVD Rate: regular rate Rhythm: regular rhythm Heart sounds: S1 normal heart sound present and S2 normal heart sound present Peripheral pulses: Peripheral pulses 2+ throughout GI: Inspection: normal to inspection GI Palp: Yes Soft to palpation and No Tenderness to palpation present (GI) Auscultation: normal bowel sounds and High-pitched bowel sounds present Rectal Exam: deferred Skin: General skin exam: normal color and no rashes or lesions noted Lesions: no lesions Rashes: no rashes Trauma: no lacerations or abrasions Wounds: no wounds Hair: normal Nails: normal Neuro: General: patient oriented x3, gait normal, moves all extremities and Normal light touch and pain sensation Speech: normal speech Gait exam (Neuro): Normal gait present Extrem: General: normal
[2020-11-25] MEDS: PANTOPRAZOLE 40 MG TABLET PO (09:35)
[2020-11-25] MEDS: FUROSEMIDE 40 MG TABLET PO (10:07)
== END 2020-11-25 10:12 | disposition home or self-care (01) ==
LOC: ANHED 11-23 01:34 → ANH3MEDSUR 11-23 01:38
PROVIDERS: Admitting Provider Surgery; Emergency Provider Emergency Medicine; PCP Family Medicine; Visit Provider Surgery
DX: N39.0 Urinary tract infection, site not specified (principal); E87.70 Fluid overload, unspecified; R10.30 Lower abdominal pain, unspecified; K59.09 Other constipation; Z90.49 Acquired absence of other specified parts of digestive tract; Z98.0 Intestinal bypass and anastomosis status; Z79.899 Other long term (current) drug therapy
CPT/HCPCS: 36415; 71046; 80048; 81001; 83605; 83880; 85025; 85027; 87086; 87088; 96361; 96365; 96366; 96375; 96376; 99285; A9270; G0378; J0696; J2405; J3010; J7030

== ENCOUNTER 2020-11-28 23:20 | Inpatient (IN) | payer MEDICARE, SELFPAY ==
--- NOTE | ~2020-11-28 | CT_ITS ---
EXAMINATION: CT guide absc cath placement DATE: 12/10/2020 16:07 INDICATION: Abdominal abscess/fluid collection TECHNIQUE: The procedure including the risks and benefits was discussed with the patient. Risks discu ssed included bleeding and infection. The patient understood the risks and benefits and agreed to pro ceed. The patient was confirmed to be receiving appropriate antibiotic coverage. Administrative Associate CT image of th e abdomen and pelvis was obtained. with 100 mL Omnipaque-350 intravenous contrast. The skin overlying the abdomen was prepped and draped in usual sterile fashion. Anesthetic was administered with 1% li docaine subcutaneously. 18-gauge trocar needle was advanced into the peritoneal fluid collection util izing CT guidance. The inner stylette was removed and a J-wire was advanced into the needle into the fluid collection with positioning confirmed by CT. Utilizing Seldinger technique the needle was remov ed. The wire and the tract serially dilated to 10 Fr. A 10 Fr catheter was inserted over the wire int o the fluid collection into and the pigtail loop formed and locked. 10 mL of a 1:10 dilution of Omnip aque-350: Sterile saline was injected into the fluid pocket with additional CT images confirming posi tion of the formed loop of the catheter and fluid within the fluid collection. The catheter was stitc hed to the skin with suture. Antibiotic appointment and a sterile dressing were applied. The catheter was attached to suction drainage and was draining a minimal amount of serosanguineous fluid with katt ris at the conclusion of the procedure. There were no immediate complications. The dose-length produc t was 802.50 mGy-cm. FINDINGS: CT images demonstrate the catheter within the fluid collection in the left paracolic gutter . 2 mL fluid was aspirated for testing. On the final images there are loculations within the fluid co llection which along with the serosanguineous appearance of the small amount of fluid drained suggest s organizing hematoma. Of note on the rug washer images from oral contrast material from prior water-solub le enema remains within the colon most dense in the region of the left lower quadrant and colostomy. There is no evident contrast opacification of the fluid collection of concern to suggest ongoing dano l leak. IMPRESSION: 1. Successful CT-guided abscess/peritoneal fluid collection drainage. 2. 2 mL of serosanguineous fluid was sent for aerobic and anaerobic cultures. 3. The catheter will be managed by Dr. Faye. Reviewed, dictated and finalized at location A.
--- NOTE | ~2020-11-28 | CT_ITS ---
EXAMINATION: CT abdomen pelvis w con DATE: 12/09/2020 09:53 INDICATION: Abdominal pain and fevers TECHNIQUE: Computed tomography (CT) of the abdomen and pelvis was performed with 100 mL Omnipaque-350 intravenous contrast. Automated exposure control and iterative reconstruction technique were employe d. The dose-length product was 666.03 mGy-cm. COMPARISON: None FINDINGS: Small bilateral posteriorly layering pleural effusions with dependent compressive atelectasis in the bilateral lower lobes. Lesser degree of mild atelectasis at the lingula and right middle lobe. Heart size is normal. No pericardial effusion. Diffuse hepatic steatosis with more focal fat along the liga mentum teres. Additional 1.5 cm centrally decreased attenuation lesion in segment 3 of the liver. Sma ll amount of posterior layering sludge or gallstones in the dependent aspect of the otherwise normal- appearing gallbladder. No wall thickening or pericholecystic inflammatory change to suggest acute cho lecystitis. There is thrombus within the left portal vein. Pancreas, spleen, bilateral adrenal glands and left kidney are normal. 2.3 cm left renal cyst. Small amount of gas in the bladder likely relate d to recent Roberson catheterization. Postoperative change of prior sigmoidectomy with left lower quadrant and colostomy. Contrast material is seen in the remaining colon proximal to the ostomy as well as in a small Arellano's pouch in the p pratima. No extraluminal extravasation of the contrast from the bowel. No dilated bowel to suggest obst ruction or ileus. Several diverticula without adjacent from 3 change to suggest diverticulitis along the remaining descending colon.. There is a rim-enhancing fluid collection extending approximately 12 cm craniocaudally along the left paracolic gutter and towards the left lower quadrant ostomy which m easures up to 7.4 x 3.4 cm in maximal transaxial dimensions. There is a second small rim-enhancing ab scess measuring up to 5.7 x 1.9 x 2.0 cm in the deep pelvis situated between the dome of the bladder, the end of the Arellano's pouch and the tip of the cecum. There is a small amount of stranding and so ft tissue gas along a midline surgical wound with multiple skin kareen. There is scattered mesenteri c edema and small amount of nonloculated free fluid scattered throughout the mesentery. No free intra peritoneal gas. 3 mm anterolisthesis L4 on L5 and associated moderate disc height loss and severe loly ateral facet osteoarthritis at this level. Otherwise mild lumbar and lower thoracic spondylosis. IMPRESSION: 1. Postoperative changes of recent sigmoidectomy and left lower quadrant and colostomy. There are a c ouple rim-enhancing fluid collections measuring 12.0 x 7.4 x 3.4 cm in the left abdomen and 5.7 x 1.9 x 2.0 cm in the pelvis which could represent postoperative hematomas/seromas or abscesses. 2. Left portal venous thrombosis. 3. Likely sludge versus gallstones in the dependent aspect of the otherwise normal gallbladder. No fi ndings to suggest acute cholecystitis. 4. Indeterminate 1.5 cm hypodense lesion in the left hepatic lobe. Would recommend follow-up pre and postcontrast MRI for further evaluation when clinically improved. 5. Small bilateral pleural effusions with compressive atelectasis in the dependent lower lobes. Reviewed, dictated and finalized at location A. IMPRESSION: 1. Postoperative changes of recent sigmoidectomy and left lower quadrant and co lostomy. There are a couple rim-enhancing fluid collections measuring 12.0 x 7. 4 x 3.4 cm in the left abdomen and 5.7 x 1.9 x 2.0 cm in the pelvis which could represent postoperative hematomas/seromas or abscesses. 2. Left portal venous thrombosis. 3. Likely sludge versus gallstones in the dependent aspect of the other
--- NOTE | ~2020-11-28 | XR_ITS ---
EXAMINATION: XR chest 2V EXAM DATE: 12/07/2020 12:27 INDICATION: Postoperative. Nausea. Elevated white blood cell count. TECHNIQUE: Portable AP frontal chest x-ray was obtained. Comparison is made to prior examination from 11/25/2019. FINDINGS: Elevated left hemidiaphragm with airspace disease, at least partly segmental atelectasis. S mall to moderate left, small right pleural effusions. Pneumonia not excludable. Mid and upper lung zo arjun are clear. Cardiomediastinal silhouette is normal. There are no osseous abnormalities identified. IMPRESSION: 1. Small to moderate left, small pleural effusions. 2. Left basilar segmental atelectasis. Pneumonia not excludable. Reviewed, dictated and finalized at location A.
--- NOTE | ~2020-11-28 | US_ITS ---
EXAMINATION: US venous doppler [facility] EXAM DATE: 12/06/2020 10:34 INDICATION: left posterior calf pain. TECHNIQUE: Multiple grayscale, color flow and Doppler images of the lower extremity deep venous syste ms bilaterally were obtained and reviewed. There is no prior study for comparison. FINDINGS: Right side: The right common femoral, femoral and profunda veins demonstrate normal color flow, respi ratory variation, augmentation and compressibility. Compressibility, color flow confirmed within the right popliteal, posterior tibial, peroneal, and greater saphenous veins. Left side: The left common femoral, femoral and profunda veins demonstrate normal color flow, respira tory variation, augmentation and compressibility. Compressibility, color flow confirmed within the l eft popliteal, posterior tibial, peroneal, and greater saphenous veins. IMPRESSION: 1. No lower extremity deep venous thrombosis bilaterally. Reviewed, dictated and finalized at location A.
--- NOTE | ~2020-11-28 | XR_ITS ---
EXAMINATION: XR enema water soluble EXAM DATE: 11/29/2020 10:02 INDICATION: s/p sigmoidectomy, rule out anastomotic leak. Free air on CT. TECHNIQUE: Single contrast water-soluble Omnipaque 350 diluted with sterile water solution enema per formed. Patient was brought to radiology and anodizer image demonstrated large amount of urine/contrast in the bladder from IV administration for CT performed earlier. Patient then voided and still had lar ge amount of bladder contrast. Nurse then came and catheterized patient to decrease amount of bladder contrast. Pulsed dose reduction fluoroscopy was used with fluoroscopic time of 0.1 minutes. The DAP for this procedure was 44 Gycm2. A total of 13 images obtained for the exam. Correlation is made to recent CT scan from outside institution, which will be scanned into our PACS system. FINDINGS: Upon administration of contrast, extravasation was demonstrated at the rectosigmoid anasto mosis site consistent with anastomosis leak. Contrast administration was then stopped before contrast reached the cecum. Approximately 200 mL of contrast/water was administered totally. Scattered descen ding colonic diverticulosis. IMPRESSION: Rectosigmoid anastomosis leak. Reviewed, dictated and finalized at location A.
--- NOTE | 2020-11-28 23:20 | ADMGEN ---
This patient, Birgit Morgan, was admitted to Medical Room 340-01. Patient/family oriented to hospital policies and general routines including ID bracelet, bed and alarms, visiting hours, pain management, procedures, bathroom and other care routines, personal items, smoking policy, room service/diet, and visiting hours. Information on how to activate the Rapid Response Team has been discussed. Patient/Family are encouraged to report perceived risks to care and to ask questions if they do not understand what they are told or what they should do.
[2020-11-28 23:27] VITALS: O2SAT 95
[2020-11-28 23:29] VITALS: BP 96/48; PULSE 94; RESP 14; TEMP 36.6; O2SAT 91
[2020-11-28 23:35] VITALS: BMI 33.3
[2020-11-29] VITALS (25 sets, daily range): BP systolic 86–114; BP diastolic 40–89; PULSE 87–114; RESP 12–20; TEMP 36.3–37.7; O2SAT 92–100
--- NOTE | 2020-11-29 | PC.NURSE ---
ADMITTING NOTIFIED OF PATIENTS ARRIVAL.
[2020-11-29] MEDS: LACTATED RINGERS 1,000 ML 125 ML IV CONT ×2 (00:51→16:28)
[2020-11-29] MEDS: HYDROmorphone HCL INJ (*CRX) 1 MG/ML SYR IV PUSH ×4 (00:55→20:50)
[2020-11-29 07:05] LABS: Hematocrit 38.9 % (37.0-47.0); Hemoglobin 12.1 g/dL (12.0-15.0); Mean Corpuscular HGB Conc 31.1 g/dl (32-36); Mean Platelet Volume 10.1 fl (7.4-10.4); Platelet Count Result 277 k/mm3 (150-375); Red Blood Count 4.32 M/mm3 (4.2-5.4); Red Cell Distribution Width 13.7 % (11.5-14.5); White Blood Count 11.3 K/mm3 (4.5-10.0)
[2020-11-29 07:15] LABS: Alanine Aminotransferase 27 U/L (4-35); Albumin Level 3.1 g/dL (3.5-5.1); Alkaline Phosphatase 72 U/L (38-126); Anion Gap 9 mmol/L (8-16); Aspartate Amino Transferase 31 U/L (14-36); Bilirubin,Total 0.7 mg/dL (0.2-1.3); Blood Urea Nitrogen 17 mg/dL (7-17); Calcium 8.2 mg/dL (8.4-10.2); Carbon Dioxide 20 mmol/L (22-30); Chloride 113 mmol/L (98-107); Estimated CRCL calculation 49 ml/min; Estimated Glomerular Filt Rate 55; Glucose 125 mg/dL (65-105); Sodium 142 mmol/L (137-145)
--- NOTE | 2020-11-29 10:31 | PM.IMHP ---
H&P: HPI History of Present Illness Date/Time: 11/29/20 10:31 Chief Complaint: Severe lower abdominal pain Narrative: this is a 70-year-old woman who presented to the emergency department at an outside facility last night with complaints of severe lower abdominal pain. She is status post hand assisted laparoscopic sigmoid colectomy for diverticular disease on 11/19/[address] Aguirre. Her postoperative course was initially uneventful and she was discharged several days after the surgery. Her bowels were moving and she was doing well. She was readmitted last weekend with a urinary tract infection and remained in the hospital until 11/26/2020. She was discharged and states that she was tolerating her diet and bowels were moving. Her last bowel movement was 2 days ago. Yesterday evening she states she felt that she was constipated, and then began experiencing severe left lower quadrant abdominal pain. She that also experienced some nausea and vomiting. She presented to [facility] Emergency Department. Her pain was very difficult to get controlled there. A CT showed some pelvic fluid and a couple small pockets of free air around the anastomosis. She was transferred to [facility] for further treatment. She continued to have fairly severe abdominal pain overnight. This morning she was sent for a Hypaque enema to assess for anastomotic leak. She is afebrile but has a slightly elevated white blood count. She is currently hemodynamically stable. Review of Systems Review of Systems: All systems reviewed & are unremarkable except as noted in HPI and below PMFSH Past Medical History Medical History Chronic constipation Diverticulitis GERD (gastroesophageal reflux disease) Helicobacter pylori (H. pylori) infection Surgical History Surgical History H/O section History of total abdominal hysterectomy Family History Family History Father Heart failure Mother Social History Social History Smoking status: Never smoker Alcohol intake: former Drinks per week: 2 Substance use: never Substance use type: does not use Additional living arrangements comments: SIGNIFICANT OTHER Gender identity (if verbalized by the patient): Female Sexual Orientation (if Verbalized by the Patient): Straight or Heterosexual Spiritual care concerns: No Meds Home Medications and Allergies Home Medications Medication Instructions Recorded Confirmed Type cetirizine [Zyrtec] 10 mg PO DAILY 10/20/20 11/28/20 History rabeprazole 20 mg PO DAILY 10/20/20 11/28/20 History Adult Probiotic 3,000 mmu cells PO EVERY OTHER DAY 11/13/20 11/28/20 History cyanocobalamin (vitamin B-12) 500 mcg SUBLINGUAL DAILY 11/13/20 11/28/20 History epinephrine 0.3 ml SUBCUT ONCE PRN 11/13/20 11/28/20 History polyethylene glycol 3350 [Miralax] 34 g PO DAILY 11/13/20 11/28/20 History hydrocodone-acetaminophen 1 - 2 tablet PO Q6H PRN #15 tablet 11/21/20 11/28/20 Rx ibuprofen 600 mg PO Q6H PRN #14 tablet 11/21/20 11/28/20 Rx nystatin 5 ml PO QID #120 ml 11/22/20 11/28/20 Rx cefdinir 300 mg PO Q12H 5 Days #10 cap 11/25/20 11/28/20 Rx Allergies Allergy/AdvReac Type Severity Reaction Status Date / Time grass pollen Allergy Hives Verified 11/28/20 23:28 Sulfa (Sulfonamide Allergy Hives Verified 11/28/20 23:28 Antibiotics) fentanyl AdvReac Hives Verified 11/28/20 23:28 morphine AdvReac Hives Verified 11/28/20 23:28 Qcnlznw-Xzt-Mqd Reductase AdvReac Muscle Pain Verified 11/28/20 23:28 Inhibitor Vital Signs Vital Signs - 24 hr 11/28/20 23:27 11/28/20 23:29 11/29/20 05:47 Temperature 36.6 C 36.6 C Pulse Rate 94 91 Respiratory Rate 14 20 Blood Pressure 96/48 L 102/58 L Pulse Oxim
--- NOTE | 2020-11-29 10:41 | WPDHPUPDATE1 ---
History and Physical Update Update Date/Time: 11/29/20 10:41 History and Physical has been reviewed, including an updated exam of the patient. There are NO changes in the patient's condition. Risks, benefits, and alternatives have been discussed and questions answered. Patient agrees to proceed with procedure.
--- NOTE | 2020-11-29 11:48 | WPDANESEPPF ---
Anes - Initial Pre Proc Eval Procedure: Operation Date: 11/29/20 12:30 Proposed Procedures p Exploratory Laparotomy, Possible Bowel Resection, Possible Ostomy - Elder Faye DO Date/Time: 11/29/20 11:48 Surgeon: Elder Faye DO Pre Op Diagnosis: Post Op complications, diverticulitis Patient Data Age: 70 Gender: F Height: 5 ft 3 in Weight: 85.4 kg Last Vital Signs Temp 36.6 C 11/29/20 05:47 Pulse 91 11/29/20 05:47 Resp 20 11/29/20 05:47 BP 102/58 L 11/29/20 05:47 Pulse Ox 93 11/29/20 05:47 Allergies Allergy/AdvReac Type Severity Reaction Status Date / Time grass pollen Allergy Hives Verified 11/28/20 23:28 Sulfa (Sulfonamide Allergy Hives Verified 11/28/20 23:28 Antibiotics) fentanyl AdvReac Hives Verified 11/28/20 23:28 morphine AdvReac Hives Verified 11/28/20 23:28 Tmrsotb-Ipx-Hgk Reductase AdvReac Muscle Pain Verified 11/28/20 23:28 Inhibitor Home Medications Medication Instructions Recorded Confirmed Type cetirizine [Zyrtec] 10 mg PO DAILY 10/20/20 11/28/20 History rabeprazole 20 mg PO DAILY 10/20/20 11/28/20 History Adult Probiotic 3,000 mmu cells PO EVERY OTHER DAY 11/13/20 11/28/20 History cyanocobalamin (vitamin B-12) 500 mcg SUBLINGUAL DAILY 11/13/20 11/28/20 History epinephrine 0.3 ml SUBCUT ONCE PRN 11/13/20 11/28/20 History polyethylene glycol 3350 [Miralax] 34 g PO DAILY 11/13/20 11/28/20 History hydrocodone-acetaminophen 1 - 2 tablet PO Q6H PRN #15 tablet 11/21/20 11/28/20 Rx ibuprofen 600 mg PO Q6H PRN #14 tablet 11/21/20 11/28/20 Rx nystatin 5 ml PO QID #120 ml 11/22/20 11/28/20 Rx cefdinir 300 mg PO Q12H 5 Days #10 cap 11/25/20 11/28/20 Rx Laboratory Tests 06/05/21 06/05/21 06:53 06:53 WBC 11.3 K/mm3 H K/mm3 (4.5-10.0) RBC 4.32 M/mm3 M/mm3 (4.2-5.4) Hgb 12.1 g/dL g/dL (12.0-15.0) Hct 38.9 % % (37.0-47.0) MCV 90.0 fl fl (80-100) MCH 28.0 pg pg (26-34) MCHC 31.1 g/dl L g/dl (32-36) RDW 13.7 % % (11.5-14.5) Plt Count 277 k/mm3 k/mm3 (150-375) MPV 10.1 fl fl (7.4-10.4) Sodium 142 mmol/L mmol/L (137-145) Potassium 4.0 mmol/L mmol/L (3.4-5.0) Chloride 113 mmol/L H mmol/L (98-107) Carbon Dioxide 20 mmol/L L mmol/L (22-30) Anion Gap 9 mmol/L mmol/L (8-16) BUN 17 mg/dL mg/dL (7-17) Creatinine 1.00 mg/dL mg/dL (0.7-1.0) Estim Creat Clear Calc 49 ml/min ml/min Estimated GFR 55 L (59 - ) Glucose 125 mg/dL H mg/dL (65-105) Calcium 8.2 mg/dL L mg/dL (8.4-10.2) Total Bilirubin 0.7 mg/dL mg/dL (0.2-1.3) AST 31 U/L U/L (14-36) ALT 27 U/L U/L (4-35) Alkaline Phosphatase 72 U/L U/L (38-126) Total Protein 6.0 g/dL L g/dL (6.3-8.2) Albumin 3.1 g/dL L g/dL (3.5-5.1) Patient hx anesthesia problems: none Family hx anesthesia problems: none PMFSH Past Medical History Medical History Acute abdomen Chronic constipation Diverticulitis GERD (gastroesophageal reflux disease) Helicobacter pylori (H. pylori) infection Tachycardia Surgical History Surgical History H/O section History of total abdominal hysterectomy Family History Family History Father Heart failure Mother Social History Social History Smoking status: Never smoker Alcohol intake: former Drinks per week: 2 Substance use: never Substance use type: does not use Additional living arrangements comments: SIGNIFICANT OTHER Gender identity (if verbalized by the patient): Female Sexual Orientation (if Verbalized by the Patient): Straight or Heterosexual Spiritual care concerns:
[2020-11-29] MEDS: LACTATED RINGERS 1,000 ML 30 ML IV CONT ×2 (13:28→14:04)
--- NOTE | 2020-11-29 13:40 | PM.PROC ---
Procedure Note - Detailed Date of procedure: 11/29/20 Pre-op diagnosis: Acute abdominal pain, anastomotic leak Post-op diagnosis: same Procedure performed: 1. Exploratory laparotomy 2. Partial colon resection with end diverting colostomy (Bianca's procedure) Description of procedure: Procedure as well as risks, benefits, and alternatives were discussed with the patient. Written consent was obtained and placed in chart prior to procedure. Patient was brought back to surgical suite. She was placed supine on operating table. Time-out was done to confirm patient and procedure. She was intubated by the Anesthesia Department. Her abdomen was prepped and draped in sterile fashion using chlorhexidine prep. The lower midline scar was opened using a 10 blade scalpel. The subcu sutures were removed and the abdomen was opened all the way down to the level of the fascia. The fascial stitches were then removed as well and the abdominal cavity was entered. Once I entered into the abdominal cavity there was about 200 cc of purulence fluid that was suctioned. The midline incision was extended just slightly longer inferiorly and superiorly to allow for adequate exploration. An Heath wound protector was then placed and the abdominal cavity was carefully inspected. The omentum was packed into the upper abdomen and the small bowel was also carefully packed away from the pelvis with moist lap pads. The descending colon was identified and this was traced down into the pelvis. The colorectal anastomosis was identified and carefully inspected. The anterior suture line appeared intact, but as I carefully inspected the posterior suture line, there appeared to be approximately 1 to 1.5 cm dehiscence of the suture line posteriorly. Stool was visible leaking from the dehiscence. There was a significant amount of purulence fluid and inflammatory induration around the anastomosis. I made the decision to resect the anastomosis and perform and end descending colostomy. The rectum was freed up just distal to the anastomosis and this area appeared healthy and viable for transection. A contour stapler was then advanced across the rectum at this point and then the stapler was clamped and fired. There was some minor bleeding at the mesorectum and this was controlled using electrocautery. An 0 Prolene suture was placed at the staple line in order to identify the rectal stump for future reanastomosis. The pelvis was then irrigated with sterile saline. Hemostasis appeared adequate. The remainder of the abdomen was then thoroughly irrigated with about 4 L of sterile saline. No further purulence fluid was identified. An NG tube was placed by anesthesia and the adequate placement was confirmed by palpating the stomach. No further abnormalities were identified, and there appeared to be enough mobilization of the descending colon to allow for delivery through a left lower quadrant incision for ostomy. A 2 cm circular incision was then made in the left lower quadrant using a 15 blade scalpel. Electrocautery was used for hemostasis and for excision of the skin overlying this circular incision. The subcutaneous tissue was then dissected down to the anterior rectus sheath. A 2 cm vertical incision was made on the anterior rectus sheath using electrocautery. The rectus muscle was split along its fibers and the posterior sheath was then incised with electrocautery as well. I ensure that a wide enough opening was created to allow for about 2 finger widths. The descending colon was then delivered through the ostomy incision and a John clamp was placed across it. The excess colon at the anastomosis down to the rectum just beyond the anastomotic leak was excised and sent to the lab for pathology. I then closed the fascia using 0 PDS running suture starting at each end and meeting in the middle. The subcutaneous space was then irrigated further with sterile saline. The skin edges were then reapproxi
[2020-11-29] MEDS: HYDROmorphone HCL INJ (*CRX) 1 MG/ML SYR 0.5 MG IV PUSH ×2 (13:47→14:03)
--- NOTE | 2020-11-29 15:56 | PCDIET ---
This patient, Birgit Morgan, was received from [PACU ] on 11/29/20 at 1550. Patient/family oriented to unit policies and routines
--- NOTE | 2020-11-29 15:58 | PC.NURSE ---
This patient, Birgit Morgan, was received from [ PACU] on 11/29/20 at 1550. Patient/family oriented to unit policies and routines
[2020-11-29] MEDS: IBUPROFEN IV 800 MG/200 ML 800 MG/200 ML BAG 400 MG IVPB ×2 (16:29→23:17)
[2020-11-30] VITALS (9 sets, daily range): BP systolic 92–111; BP diastolic 47–62; PULSE 80–901; RESP 14–18; TEMP 35.8–36.8; O2SAT 92–95
[2020-11-30] MEDS: LACTATED RINGERS 1,000 ML 125 ML IV CONT ×2 (02:38→15:11)
[2020-11-30] MEDS: IBUPROFEN IV 800 MG/200 ML 800 MG/200 ML BAG 400 MG IVPB ×4 (05:37→22:56)
[2020-11-30 05:39] LABS: Hematocrit 34.7 % (37.0-47.0); Hemoglobin 10.9 g/dL (12.0-15.0); Mean Corpuscular HGB Conc 31.4 g/dl (32-36); Mean Corpuscular Hemoglobin 28.2 pg (26-34); Mean Corpuscular Volume 89.7 fl (80-100); Mean Platelet Volume 10.6 fl (7.4-10.4); Platelet Count Result 257 k/mm3 (150-375); Red Blood Count 3.87 M/mm3 (4.2-5.4); White Blood Count 14.2 K/mm3 (4.5-10.0)
[2020-11-30 05:49] LABS: Anion Gap 10 mmol/L (8-16); Blood Urea Nitrogen 23 mg/dL (7-17); Calcium 7.7 mg/dL (8.4-10.2); Carbon Dioxide 20 mmol/L (22-30); Chloride 111 mmol/L (98-107); Estimated CRCL calculation 45 ml/min; Estimated Glomerular Filt Rate 49; Glucose 139 mg/dL (65-105); Potassium 3.8 mmol/L (3.4-5.0); Sodium 141 mmol/L (137-145)
[2020-11-30] MEDS: ENOXAPARIN 40 MG/0.4 ML SYRINGE SUB-Q (08:26)
[2020-11-30] MEDS: HYDROmorphone HCL INJ (*CRX) 1 MG/ML SYR IV PUSH ×3 (08:30→20:41)
[2020-11-30] MEDS: FLUCONAZOLE 100 MG/NACL 50 ML 100 MG/50 ML BTL 50 MG IVPB (10:28)
--- NOTE | 2020-11-30 13:06 | PM.PNGS ---
Progress Note: A&P Assessment and Plan (1) Anastomotic leak of intestine: Code(s): K91.89 - Other postprocedural complications and disorders of digestive system Status: Acute Assessment and Plan: patient doing well on postop day 1. Bowel function minimal with this point. Continue NG decompression and IV fluids. Continue Zosyn IV and monitor for any signs of ongoing infection. Gradually increase activity. Will move from IMU to regular med/surg bed today. wound/ostomy nurse to see patient tomorrow (2) Vaginal yeast infection: Code(s): B37.3 - Candidiasis of vulva and vagina Status: Acute Assessment and Plan: Started Diflucan postoperatively Subjective Subjective Date/Time Seen: 11/30/20 13:06 Interval history: Patient mostly complains of irritation from NG tube. Abdominal pain better controlled today. No fevers. Not much output from ostomy yet. Exam GI: Inspection: non-distended, incision ( dressing dry) and other ( Ostomy pink with minimal serous output) GI Palp: Yes Soft to palpation and Yes Tenderness to palpation present (GI) ( incisional) Objective Data Vital Signs Vital Signs: Vital Signs - 24 hr 11/29/20 13:28 11/29/20 13:40 11/29/20 13:55 Temperature 37.7 C H Pulse Rate 98 89 90 Respiratory Rate 18 20 16 Blood Pressure 93/40 L 97/49 L 97/47 L Pulse Oximetry 93 93 94 11/29/20 14:10 11/29/20 14:25 11/29/20 14:40 Temperature 36.8 C Pulse Rate 94 99 102 H Respiratory Rate 16 12 14 Blood Pressure 94/42 L 99/53 L 87/58 L Pulse Oximetry 95 92 92 11/29/20 14:55 11/29/20 15:10 11/29/20 15:20 Temperature Pulse Rate 104 H 102 H 104 H Respiratory Rate 12 12 12 Blood Pressure 86/58 L 94/49 L 104/51 L Pulse Oximetry 93 93 93 11/29/20 15:45 11/29/20 16:00 11/29/20 16:15 Temperature 36.6 C 36.6 C Pulse Rate 106 H 104 H 98 Respiratory Rate 16 18 Blood Pressure 104/46 L 95/40 L Pulse Oximetry 95 95 95 11/29/20 16:45 11/29/20 17:15 11/29/20 17:45 Temperature 36.5 C 36.3 C L 36.5 C Pulse Rate 96 93 99 Respiratory Rate 14 18 20 Blood Pressure 104/49 L 96/50 L 88/47 L Pulse Oximetry 96 94 92 11/29/20 18:00 11/29/20 18:45 11/29/20 19:45 Temperature 36.4 C Pulse Rate 97 98 114 H Respiratory Rate 16 18 Blood Pressure 92/50 L 100/50 L Pulse Oximetry 94 100 11/29/20 20:00 11/29/20 20:01 11/29/20 20:45 Temperature 36.5 C Pulse Rate 100 96 97 Respiratory Rate 18 18 Blood Pressure 96/53 L Pulse Oximetry 100 94 92 11/29/20 21:45 11/29/20 22:00 11/29/20 23:57 Temperature 36.9 C 36.7 C Pulse Rate 96 93 87 Respiratory Rate 18 16 Blood Pressure 114/89 90/40 L Pulse Oximetry 98 94 11/30/20 00:00 11/30/20 02:00 11/30/20 04:00 Temperature 36.8 C Pulse Rate 93 87 88 Respiratory Rate 16 Blood Pressure 92/52 L Pulse Oximetry 94 94 11/30/20 06:00 11/30/20 08:00 11/30/20 10:00 Temperature 36.2 C L Pulse Rate 84 80 100 Respiratory Rate 18 Blood Pressure 98/47 L Pulse Oximetry 94 11/30/20 12:00 Temperature 36.4 C Pulse Rate 96 Respiratory Rate 14 Blood Pressure 111/51 L Pulse Oximetry 92 Intake/Output Intake/Output: Intake & Output 11/27/20 11/28/20 11/29/20 11/30/20 23:59 23:59 23:59 23:59 Intake Total 2600 2023 Output Total 695 225 Balance 1905 1798 Meds/Results Medications: Active Medications Generic Name Dose Route Start Last Admin Trade Name Freq PRN Reason Stop Dose Admin Benzocaine 1 lozenge 11/30/20 13:04 Benzocaine/Menthol (*Bkc) 18 Ea Lozenge PO PRN PRN Sore Throat Enoxaparin Sodium 40 mg 11/30/20 09:00 11/30/20 08:26 Enoxaparin 40 Mg/0.4 Ml Syringe SUB-Q 40 mg DAILY JUDY Administration Hydromorphone HCl 1 mg 11/28/20 23:56 11/30/20 12:11 Hydromorphone Hcl Inj (*Crx) 1 Mg/Ml Syr IV PUSH 1 mg Q2H PRN Administration Pain Rated 7-10 Hydromorphone HCl 0.5 mg 11/29/20 15:22 Hydromorphone Hcl Inj (
--- NOTE | 2020-11-30 15:30 | PC.NURSE ---
This patient, Birgit Morgan, was received from [IMU ] on 11/30/20 at 1530. Patient/family oriented to unit policies and routines. Received report from TYRON Farah.
--- NOTE | 2020-11-30 15:32 | PC.NURSE ---
This patient, Birgit Morgan, was transferred to [[facility] ] on 11/30/20 at 1530. Personal belongings sent with patient. Report given to [[facility] ]. Appropriate documentation sent with patient.
[2020-12-01] MEDS: LACTATED RINGERS 1,000 ML 125 ML IV CONT ×2 (01:29→10:08)
[2020-12-01] MEDS: HYDROmorphone HCL INJ (*CRX) 1 MG/ML SYR IV PUSH ×5 (03:14→21:05)
[2020-12-01 05:42] LABS: Hematocrit 31.2 % (37.0-47.0); Hemoglobin 9.7 g/dL (12.0-15.0); Mean Corpuscular HGB Conc 31.1 g/dl (32-36); Mean Corpuscular Hemoglobin 27.6 pg (26-34); Mean Corpuscular Volume 88.9 fl (80-100); Mean Platelet Volume 10.6 fl (7.4-10.4); Platelet Count Result 278 k/mm3 (150-375); Red Blood Count 3.51 M/mm3 (4.2-5.4); Red Cell Distribution Width 14.3 % (11.5-14.5); White Blood Count 12.5 K/mm3 (4.5-10.0)
[2020-12-01 05:53] LABS: Anion Gap 8 mmol/L (8-16); Blood Urea Nitrogen 24 mg/dL (7-17); Calcium 7.8 mg/dL (8.4-10.2); Carbon Dioxide 22 mmol/L (22-30); Chloride 110 mmol/L (98-107); Estimated CRCL calculation 54 ml/min; Estimated Glomerular Filt Rate > 60; Glucose 75 mg/dL (65-105); Potassium 3.3 mmol/L (3.4-5.0); Sodium 140 mmol/L (137-145)
[2020-12-01 06:00] VITALS: BP 110/56; PULSE 77; RESP 16; TEMP 36.6; O2SAT 93
[2020-12-01] MEDS: ENOXAPARIN 40 MG/0.4 ML SYRINGE SUB-Q (10:08)
[2020-12-01] MEDS: FLUCONAZOLE 100 MG/NACL 50 ML 100 MG/50 ML BTL 50 MG IVPB (10:09)
[2020-12-01 10:15] VITALS: O2SAT 90
--- NOTE | 2020-12-01 12:23 | PM.PNGS ---
Progress Note: A&P Assessment and Plan (1) Anastomotic leak of intestine: Code(s): K91.89 - Other postprocedural complications and disorders of digestive system Status: Acute Assessment and Plan: Doing well postop day 2. Ostomy appears pink and healthy. Awaiting return of bowel function. Will start daily gauze dressing changes to midline incision. Continue NG tube decompression, bowel rest, and IV fluids. Continue IV Zosyn. WBC trending down, continue to monitor. D/C johnson Potassium slightly low this morning, supplemented with KCL IV. Repeat labs tomorrow. Encourage trying to increase activity some today. (2) Vaginal yeast infection: Code(s): B37.3 - Candidiasis of vulva and vagina Status: Acute Assessment and Plan: On Diflucan IV Additional Plan Discussed plan of care with Dr. Faye. Subjective Subjective Date/Time Seen: 12/01/20 12:23 Post Op day: 2 (Ex lap, partial colon resection with end diverting colostomy) Patient reports: feels better, still having pain, no flatus (From ostomy) and afebrile Interval history: The patient reports still having some abdominal pain, but this is being well controlled with current analgesics. Her main complaint is the discomfort of the NG tube. Up in the chair this morning. Her and her also have been educated by the wound care nurses on colostomy care this morning. No other complaints at this time. Review of Systems Review of Systems: All systems reviewed & are unremarkable except as noted in HPI and below Constitutional: Constitutional: Reports as per HPI, Reports no additional constitutional complaints, Denies chills and Denies fever(s) Cardiovascular: Cardiovascular: Reports no additional cardiovascular complaints, Denies chest pain and Denies leg edema Respiratory: Respiratory: Reports no additional respiratory complaints, Denies cough and Denies dyspnea Gastrointestinal: Gastrointestinal: Reports as per HPI and Reports no additional gastrointestinal complaints Neurologic: Reports system reviewed and no additional complaints, except as documented, Denies Abnormal speech present and Denies focal weakness Exam Const: General: comfortable, no acute distress and anxious Orientation/consciousness: patient oriented x3 Resp: Effort & Inspection: normal respiratory effort Auscultation: clear to auscultation bilaterally Cardio: Rate: regular rate Rhythm: regular rhythm GI: Inspection: non-distended and other GI Palp: Yes Soft to palpation and Yes Tenderness to palpation present (GI) (Diffusely tender, worse near incisions) Auscultation: absent bowel sounds Other: Ostomy with no output or gas in bag, stoma appears pink/healthy and slightly edematous Midline incision with kareen intact and minimal serosanguineous drainage on dressing Few trocar incisions from initial surgery healing well Urinary Catheter: Urinary Catheter: patent and draining and urine clear Skin: General skin exam: normal color Neuro: General: moves all extremities and no focal motor deficits Extrem: General: no clubbing, cyanosis or edema and no calf tenderness Psych: Mental Status: mental status grossly normal Insight: Good insight present (Psych) Judgement: Good judgement present (Psych) Objective Data Vital Signs Vital Signs: Vital Signs - 24 hr 11/30/20 16:00 11/30/20 22:00 12/01/20 06:00 Temperature 96.5 F L 97.8 F Pulse Rate 901 H 77 Respiratory Rate 16 16 Blood Pressure 104/62 110/56 L Pulse Oximetry 94 94 93 12/01/20 10:15 Temperature Pulse Rate Respiratory Rate Blood Pressure Pulse Oximetry 90 Intake/Output Intake/Output: Intake & Output 11/28/20 11/29/20 11/30/20 12/01/20 23:59 23:59 23:59 23:59 Intake Total 2600 3950 1150 Output Total 695 750 600 Balance 1905 3200 550 Meds/Results Medications: Active Medications Generic Name Dose Route Start Last Admin Trade Name Freq PRN Reason Stop Dose A
[2020-12-01 14:00] VITALS: BP 111/56; PULSE 79; RESP 16; TEMP 35.9; O2SAT 96
[2020-12-01] MEDS: PHENOL/SOD PHENO SPRAY CHERRY (*BKC) 1 SPRAY MUCOUS MEM (15:40)
[2020-12-01] MEDS: IBUPROFEN IV 800 MG/200 ML 800 MG/200 ML BAG 400 MG IVPB ×2 (15:40→21:05)
--- NOTE | 2020-12-01 16:07 | PC.NURSE ---
Patient refusing to have catheter d/patricia today. Called and left message for Carmela Gallegos NP regarding same.
--- NOTE | 2020-12-01 16:14 | PC.NURSE ---
Patient complaining of right sided chest and shoulder pain. Pain is constant in nature and mostly in shoulder. Notified Carmela Gallegos NP of same.
--- NOTE | 2020-12-01 16:16 | ECG_ITS ---
Measurements Intervals [place] Rate: 83 P: 8 WV: 116 QRS: 15 QRSD: 87 T: -19 QT: 360 QTc: 424 Interpretive Statements SINUS RHYTHM WITH SHORT [place] INTERVAL NONSPECIFIC T-WAVE ABNORMALITY- ANTEROLAT/INF LEADS BASELINE ARTIFACT- I, II, AVR, AVL BORDERLINE ECG Electronically Signed On 12-01-2020 21:10:25 CDT by Niko Christensen D.O.
--- NOTE | 2020-12-01 18:56 | PC.NURSE ---
Patient states she prefers to keep catheter until tomorrow.
[2020-12-01 20:00] VITALS: PULSE 82; RESP 16; O2SAT 93
[2020-12-01 20:58] VITALS: BP 111/59; PULSE 82; RESP 16; TEMP 36.6; O2SAT 93
[2020-12-02] MEDS: LACTATED RINGERS 1,000 ML 125 ML IV CONT (01:07)
[2020-12-02] MEDS: HYDROmorphone HCL INJ (*CRX) 1 MG/ML SYR IV PUSH ×3 (03:49→15:08)
[2020-12-02] MEDS: IBUPROFEN IV 800 MG/200 ML 800 MG/200 ML BAG 400 MG IVPB ×2 (03:50→10:10)
[2020-12-02 05:32] LABS: Hematocrit 30.1 % (37.0-47.0); Hemoglobin 9.5 g/dL (12.0-15.0); Mean Corpuscular HGB Conc 31.6 g/dl (32-36); Mean Corpuscular Hemoglobin 27.8 pg (26-34); Mean Platelet Volume 10.3 fl (7.4-10.4); Platelet Count Result 311 k/mm3 (150-375); Red Blood Count 3.42 M/mm3 (4.2-5.4); Red Cell Distribution Width 14.1 % (11.5-14.5); White Blood Count 9.5 K/mm3 (4.5-10.0)
[2020-12-02 05:50] LABS: Anion Gap 9 mmol/L (8-16); Blood Urea Nitrogen 20 mg/dL (7-17); Carbon Dioxide 23 mmol/L (22-30); Chloride 108 mmol/L (98-107); Estimated CRCL calculation 61 ml/min; Estimated Glomerular Filt Rate > 60; Glucose 81 mg/dL (65-105); Magnesium 1.9 mg/dL (1.6-2.3); Potassium 3.1 mmol/L (3.4-5.0); Sodium 140 mmol/L (137-145)
[2020-12-02 06:00] VITALS: BP 127/63; PULSE 78; RESP 18; TEMP 36; O2SAT 93
[2020-12-02] MEDS: ENOXAPARIN 40 MG/0.4 ML SYRINGE SUB-Q (09:03)
[2020-12-02] MEDS: FLUCONAZOLE 100 MG/NACL 50 ML 100 MG/50 ML BTL 50 MG IVPB (09:20)
--- NOTE | 2020-12-02 11:46 | PM.PNGS ---
Progress Note: A&P Assessment and Plan (1) Anastomotic leak of intestine: Code(s): K91.89 - Other postprocedural complications and disorders of digestive system Status: Acute Assessment and Plan: Bowel function returning, remove NG and start clear liquids Stop IV fluids Increase activity (2) Vaginal yeast infection: Code(s): B37.3 - Candidiasis of vulva and vagina Status: Acute Assessment and Plan: Will stop IV Diflucan and give one more dose of oral tomorrow Additional Plan Discussed plan of care with Dr. Faye. Subjective Subjective Date/Time Seen: 12/02/20 11:46 Interval history: Small amount of stool and gas in ostomy bag. No nausea or vomiting. Exam GI: Inspection: non-distended, incision (dry, intact with kareen) and other (ostomy pink, small amount of stool in bag) GI Palp: Yes Tenderness to palpation present (GI) (incisional) Auscultation: Hypoactive bowel sounds present Objective Data Vital Signs Vital Signs: Vital Signs - 24 hr 12/01/20 14:00 12/01/20 20:00 12/01/20 20:58 Temperature 35.9 C L 36.6 C Pulse Rate 79 82 82 Respiratory Rate 16 16 16 Blood Pressure 111/56 L 111/59 L Pulse Oximetry 96 93 93 12/02/20 06:00 Temperature 36.0 C L Pulse Rate 78 Respiratory Rate 18 Blood Pressure 127/63 Pulse Oximetry 93 Intake/Output Intake/Output: Intake & Output 11/29/20 11/30/20 12/01/20 12/02/20 23:59 23:59 23:59 23:59 Intake Total 2600 3950 3550 650 Output Total 475 970 3617 1350 Balance 1905 3200 1350 -700 Meds/Results Medications: Active Medications Generic Name Dose Route Start Last Admin Trade Name Freq PRN Reason Stop Dose Admin Enoxaparin Sodium 40 mg 11/30/20 09:00 12/02/20 09:03 Enoxaparin 40 Mg/0.4 Ml Syringe SUB-Q 40 mg DAILY JUDY Administration Hydromorphone HCl 1 mg 11/28/20 23:56 12/02/20 08:58 Hydromorphone Hcl Inj (*Crx) 1 Mg/Ml Syr IV PUSH 1 mg Q2H PRN Administration Pain Rated 7-10 Hydromorphone HCl 0.5 mg 11/29/20 15:22 Hydromorphone Hcl Inj (*Crx) 1 Mg/Ml Syr IV PUSH Q2H PRN Pain Rated 4-6 Lactated Ringer's 1,000 mls @ 125 mls/hr 11/28/20 23:55 12/02/20 09:22 Lr - Lactated Ringers Iv IV CONT 0 mls/hr .Q8H JUDY Infusion Piperacillin/Tazobactam/Dextrose 3.375 gm in 50 mls @ 100 mls/hr 11/29/20 01:00 12/02/20 06:45 Zosyn 3.375 Gm/D5w 50ml Pm IVPB Infused Q6H JUDY Infusion Fluconazole/Dextrose 100 mg in 50 mls @ 50 mls/hr 11/30/20 09:00 12/02/20 10:20 Diflucan 100 Mg/Nacl 50 Ml IVPB Infused DAILY JUDY Infusion Ibuprofen 800 mg in 200 mls @ 400 mls/hr 12/01/20 16:00 12/02/20 10:10 Caldolor 800 Mg/200 Ml IVPB 400 mls/hr Q6H JUDY Administration Ondansetron HCl 4 mg 11/28/20 23:56 Ondansetron Inj 4 Mg/2 Ml Vial IV PUSH Q4H PRN Nausea And Vomiting Phenol 1 spray 12/01/20 12:27 12/01/20 15:40 Phenol/Sod Pheno [place] (*Bkc) MUCOUS MEM 1 spray PRN PRN Administration Sore Throat Radiology Results: ITS Impressions Enema w/Water Soluble 11/29/20 10:07 IMPRESSION: Rectosigmoid anastomosis leak. Labs Labs: Laboratory Results - last 24 hr 12/02/20 12/02/20 05:20 05:20 WBC 9.5 RBC 3.42 L Hgb 9.5 L Hct 30.1 L MCV 88.0 MCH 27.8 MCHC 31.6 L RDW 14.1 Plt Count 311 MPV 10.3 Sodium 140 Potassium 3.1 L Chloride 108 H Carbon Dioxide 23 Anion Gap 9 BUN 20 H Creatinine 0.80 Estim Creat Clear Calc 61 Estimated GFR > 60 Glucose 81 Calcium 8.0 L Magnesium 1.9
[2020-12-02 14:00] VITALS: BP 123/73; PULSE 74; RESP 16; TEMP 36.1; O2SAT 94
[2020-12-02] MEDS: PANTOPRAZOLE 40 MG TABLET PO (17:30)
[2020-12-02] MEDS: IBUPROFEN 400 MG TABLET 800 MG PO (17:30)
[2020-12-02] MEDS: POTASSIUM CHLORIDE 20 MEQ TABLET 40 MEQ PO (17:39)
[2020-12-02] MEDS: ONDANSETRON INJ 4 MG/2 ML VIAL IV PUSH (18:40)
[2020-12-02 21:27] VITALS: BP 122/66; PULSE 84; RESP 16; TEMP 36.9; O2SAT 93
[2020-12-03] MEDS: IBUPROFEN 400 MG TABLET 800 MG PO ×3 (01:02→18:31)
[2020-12-03 05:17] VITALS: BP 135/66; PULSE 82; RESP 16; TEMP 36.7; O2SAT 95
[2020-12-03 05:36] LABS: Hematocrit 34.4 % (37.0-47.0); Hemoglobin 10.9 g/dL (12.0-15.0); Mean Corpuscular HGB Conc 31.7 g/dl (32-36); Mean Corpuscular Hemoglobin 27.7 pg (26-34); Mean Corpuscular Volume 87.5 fl (80-100); Mean Platelet Volume 10.4 fl (7.4-10.4); Platelet Count Result 398 k/mm3 (150-375); Red Blood Count 3.93 M/mm3 (4.2-5.4); Red Cell Distribution Width 13.9 % (11.5-14.5); White Blood Count 9.9 K/mm3 (4.5-10.0)
[2020-12-03 05:48] LABS: Anion Gap 13 mmol/L (8-16); Blood Urea Nitrogen 13 mg/dL (7-17); Calcium 8.7 mg/dL (8.4-10.2); Carbon Dioxide 21 mmol/L (22-30); Chloride 108 mmol/L (98-107); Estimated CRCL calculation 61 ml/min; Estimated Glomerular Filt Rate > 60; Glucose 76 mg/dL (65-105); Potassium 3.1 mmol/L (3.4-5.0); Sodium 142 mmol/L (137-145)
[2020-12-03] MEDS: ONDANSETRON INJ 4 MG/2 ML VIAL IV PUSH ×3 (06:37→17:04)
[2020-12-03] MEDS: PANTOPRAZOLE 40 MG TABLET PO (08:55)
[2020-12-03] MEDS: ENOXAPARIN 40 MG/0.4 ML SYRINGE SUB-Q (08:55)
[2020-12-03] MEDS: FLUCONAZOLE 150 MG TABLET PO (10:36)
--- NOTE | 2020-12-03 13:18 | PC.NURSE ---
Pt return from dialysis per bed.
--- NOTE | 2020-12-03 13:21 | PM.PNGS ---
Progress Note: A&P Assessment and Plan (1) Anastomotic leak of intestine: Code(s): K91.89 - Other postprocedural complications and disorders of digestive system Status: Acute Assessment and Plan: Patient complaining of nausea. Ostomy is functioning well with stool and gas in the bag. Will keep on clear liquids today. Will give a dose of IV Lasix today and replace potassium with oral supplementation. Encouraged taking the oral KCL with her tray to help avoid worsening nausea. Continue increasing activity. Encouraged IS use. Repeat labs tomorrow. (2) Vaginal yeast infection: Code(s): B37.3 - Candidiasis of vulva and vagina Status: Acute Assessment and Plan: Had one dose of oral fluconazole today. Stop antifungal. Additional Plan Discussed plan of care with Dr. Faye. Subjective Subjective Date/Time Seen: 12/03/20 13:21 Post Op day: 4 Patient reports: still having pain, voiding w/o difficulty, nausea and afebrile Interval history: Patient seen today sitting in the chair. She has had a lot of nausea since yesterday evening, but no vomiting. She reports not taking in much of the clear liquids. She has been up and walked in the halls today with pain controlled. No other complaints at this time. Review of Systems Constitutional: Constitutional: Denies chills and Denies fever(s) Cardiovascular: Cardiovascular: Reports no additional cardiovascular complaints, Denies chest pain and Reports leg edema Respiratory: Respiratory: Reports no additional respiratory complaints, Denies cough and Denies dyspnea Gastrointestinal: Gastrointestinal: Reports as per HPI and Reports no additional gastrointestinal complaints Exam Const: General: comfortable and no acute distress Orientation/consciousness: patient oriented x3 Resp: Effort & Inspection: normal respiratory effort Auscultation: crackles bilateral in the lower lung adhikari Cardio: Rate: regular rate Rhythm: regular rhythm GI: Inspection: non-distended, incision (dry, intact with kareen) and other (ostomy pink with some gas and moderate amount of stool in bag) GI Palp: Yes Soft to palpation and Yes Tenderness to palpation present (GI) (appropriate incisional tenderness) Auscultation: Hypoactive bowel sounds present Neuro: General: moves all extremities and no focal motor deficits Extrem: General: no calf tenderness and edema bilateral (lower leg pitting edema (1-2+)) Objective Data Vital Signs Vital Signs: Vital Signs - 24 hr 12/02/20 14:00 12/02/20 21:27 12/03/20 05:17 Temperature 97.0 F L 98.4 F 98.0 F Pulse Rate 74 84 82 Respiratory Rate 16 16 16 Blood Pressure 123/73 122/66 135/66 Pulse Oximetry 94 93 95 Intake/Output Intake/Output: Intake & Output 11/30/20 12/01/20 12/02/20 12/03/20 23:59 23:59 23:59 23:59 Intake Total 3950 3550 3050 630 Output Total 750 2200 2050 1200 Balance 3200 1350 1000 -570 Meds/Results Medications: Active Medications Generic Name Dose Route Start Last Admin Trade Name Freq PRN Reason Stop Dose Admin Acetaminophen 1,000 mg 12/02/20 11:43 Acetaminophen 500 Mg Tablet PO Q6H PRN Mild Pain (1-3) or Fever Enoxaparin Sodium 40 mg 11/30/20 09:00 12/03/20 08:55 Enoxaparin 40 Mg/0.4 Ml Syringe SUB-Q 40 mg DAILY JUDY Administration Hydromorphone HCl 1 mg 11/28/20 23:56 12/02/20 15:08 Hydromorphone Hcl Inj (*Crx) 1 Mg/Ml Syr IV PUSH 1 mg Q2H PRN Administration Pain Rated 7-10 Hydromorphone HCl 0.5 mg 11/29/20 15:22 Hydromorphone Hcl Inj (*Crx) 1 Mg/Ml Syr IV PUSH Q2H PRN Pain Rated 4-6 Piperacillin/Tazobactam/Dextrose 3.375 gm in 50 mls @ 100 mls/hr 11/29/20 01:00 12/03/20 13:09 Zosyn 3.375 Gm/D5w 50ml Pm IVPB Infused Q6H JUDY Infusion Ibuprofen 800 mg 12/02/20 18:00 12/03/20 09:00 Ibuprofen 400 Mg Tablet PO 800 mg Q8H JUDY Administration Ondansetron HCl 4 mg 11/28/20 23:56 12/03/20 12:31 Ondansetron
[2020-12-03 14:00] VITALS: BP 136/61; PULSE 85; RESP 16; TEMP 36.1; O2SAT 96
[2020-12-03] MEDS: FUROSEMIDE INJ 40 MG/4 ML VIAL 20 MG IV PUSH (14:48)
[2020-12-03] MEDS: PROMETHAZINE HCL 12.5 MG TABLET PO ×2 (15:50→22:29)
[2020-12-03] MEDS: HYDROmorphone HCL INJ (*CRX) 1 MG/ML SYR IV PUSH ×2 (16:55→22:28)
[2020-12-03 22:00] VITALS: BP 116/62; PULSE 80; RESP 16; TEMP 36.9; O2SAT 95
[2020-12-04] MEDS: IBUPROFEN 400 MG TABLET 800 MG PO ×2 (01:11→11:05)
[2020-12-04 05:44] LABS: Hematocrit 31.6 % (37.0-47.0); Mean Corpuscular HGB Conc 31.6 g/dl (32-36); Mean Corpuscular Hemoglobin 27.5 pg (26-34); Mean Corpuscular Volume 87.1 fl (80-100); Mean Platelet Volume 10.4 fl (7.4-10.4); Platelet Count Result 392 k/mm3 (150-375); Red Blood Count 3.63 M/mm3 (4.2-5.4); Red Cell Distribution Width 13.8 % (11.5-14.5); White Blood Count 7.9 K/mm3 (4.5-10.0)
[2020-12-04 05:55] LABS: Anion Gap 7 mmol/L (8-16); Blood Urea Nitrogen 11 mg/dL (7-17); Calcium 8.4 mg/dL (8.4-10.2); Carbon Dioxide 26 mmol/L (22-30); Chloride 108 mmol/L (98-107); Estimated CRCL calculation 69 ml/min; Estimated Glomerular Filt Rate > 60; Glucose 89 mg/dL (65-105); Potassium 3.2 mmol/L (3.4-5.0); Sodium 141 mmol/L (137-145)
[2020-12-04 06:00] VITALS: BP 114/59; PULSE 86; RESP 16; TEMP 36.9; O2SAT 94
[2020-12-04] MEDS: ENOXAPARIN 40 MG/0.4 ML SYRINGE SUB-Q (07:58)
[2020-12-04] MEDS: PROMETHAZINE HCL 12.5 MG TABLET PO ×3 (07:58→18:04)
[2020-12-04] MEDS: PANTOPRAZOLE 40 MG TABLET PO (07:58)
[2020-12-04] MEDS: ONDANSETRON INJ 4 MG/2 ML VIAL IV PUSH ×3 (11:04→22:20)
--- NOTE | 2020-12-04 11:54 | PM.PNGS ---
Progress Note: A&P Assessment and Plan (1) Anastomotic leak of intestine: Code(s): K91.89 - Other postprocedural complications and disorders of digestive system Status: Acute Assessment and Plan: Nausea improving with adding Phenergan, although the nausea seems aggravated by some of the clear liquids and oral potassium. Ostomy still functioning well. Will advance to full liquids today and switch to oral analgesics. Will replace potassium with IV KCL this morning and start b.i.d. oral potassium tablets later this evening if her nausea continues to be controlled. Repeat labs tomorrow. Will also add Mylanta for the indigestion. Encouraged increasing activity and IS use. Consider another dose of IV Lasix today. Additional Plan Discussed plan of care with Dr. Faye. 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 Reports having an episode of vomiting after receiving oral potassium yesterday. Also reports her nausea is aggravated by the juices on the clear liquid diet. She reports a lot of indigestion. Nausea has completely subsided this morning after getting Phenergan. Feeling much better this morning. Abdominal pain is being well controlled without any narcotics. Still complains of swelling in her lower extremities. Review of Systems Review of Systems: All systems reviewed & are unremarkable except as noted in HPI and below Constitutional: Constitutional: Denies fever(s) Exam Const: General: comfortable, no acute distress, alert and awake Orientation/consciousness: patient oriented x3 Resp: Effort & Inspection: normal respiratory effort Auscultation: crackles bilateral at the base Cardio: Rate: regular rate Rhythm: regular rhythm GI: Inspection: non-distended and incision (Midline incision clean and dry with kareen intact) GI Palp: Yes Soft to palpation and Yes Tenderness to palpation present (GI) (appropriate incisional tenderness) Auscultation: normal bowel sounds Other: Ostomy functioning well with soft brown stool in bag. Stoma pink and healthy. Skin: General skin exam: normal color Neuro: General: moves all extremities and no focal motor deficits Extrem: General: no calf tenderness, edema bilateral (Improved, bilateral lower extremities 1+ pitting) and pedal edema bilaterally Psych: Mental Status: mental status grossly normal Insight: Good insight present (Psych) Judgement: Good judgement present (Psych) Objective Data Vital Signs Vital Signs: Vital Signs - 24 hr 12/03/20 14:00 12/03/20 22:00 12/04/20 06:00 Temperature 97.0 F L 98.4 F 98.5 F Pulse Rate 85 80 86 Respiratory Rate 16 16 16 Blood Pressure 136/61 116/62 114/59 L Pulse Oximetry 96 95 94 Intake/Output Intake/Output: Intake & Output 12/01/20 12/02/20 12/03/20 12/04/20 23:59 23:59 23:59 23:59 Intake Total 3550 3050 1680 540 Output Total 2200 2050 3200 1200 Balance 1350 1000 -1520 -660 Meds/Results Medications: Active Medications Generic Name Dose Route Start Last Admin Trade Name Freq PRN Reason Stop Dose Admin Acetaminophen 1,000 mg 12/02/20 11:43 Acetaminophen 500 Mg Tablet PO Q6H PRN Mild Pain (1-3) or Fever Enoxaparin Sodium 40 mg 11/30/20 09:00 12/04/20 07:58 Enoxaparin 40 Mg/0.4 Ml Syringe SUB-Q 40 mg DAILY JUDY Administration Hydromorphone HCl 1 mg 11/28/20 23:56 12/03/20 22:28 Hydromorphone Hcl Inj (*Crx) 1 Mg/Ml Syr IV PUSH 1 mg Q2H PRN Administration Pain Rated 7-10 Hydromorphone HCl 0.5 mg 11/29/20 15:22 Hydromorphone Hcl Inj (*Crx) 1 Mg/Ml Syr IV PUSH Q2H PRN Pain Rated 4-6 Piperacillin/Tazobactam/Dextrose 3.375 gm in 50 mls @ 100
[2020-12-04 14:00] VITALS: BP 121/73; PULSE 66; RESP 18; TEMP 36.3; O2SAT 96
[2020-12-04] MEDS: FUROSEMIDE 40 MG TABLET PO (14:12)
--- NOTE | 2020-12-04 14:38 | PC.NURSE ---
PT C/O NAUSEA EVEN AFTER IV ZOFRAN GIVEN. Tolu ALVARADO ACCOUNT ADJUSTER NOTIFIED AND NO NEW ORDERS GIVEN
[2020-12-04] MEDS: MAG HYDROX/AL HYDROX/SIMETH 30 ML UDC PO (18:44)
[2020-12-04] MEDS: POTASSIUM CHLORIDE 20 MEQ TABLET.ER PO (20:40)
[2020-12-04 21:00] VITALS: BP 127/68; PULSE 82; RESP 16; TEMP 37; O2SAT 92
[2020-12-04] MEDS: HYDROcodone/acetaminophen (*CRX) 5-325 MG TABLET 1 TAB PO (22:20)
[2020-12-05 05:09] VITALS: BP 119/59; PULSE 80; RESP 16; TEMP 36.9; O2SAT 92
[2020-12-05 06:12] LABS: Anion Gap 8 mmol/L (8-16); Blood Urea Nitrogen 8 mg/dL (7-17); Calcium 8.4 mg/dL (8.4-10.2); Carbon Dioxide 28 mmol/L (22-30); Chloride 106 mmol/L (98-107); Estimated CRCL calculation 69 ml/min; Estimated Glomerular Filt Rate > 60; Glucose 90 mg/dL (65-105); Magnesium 1.6 mg/dL (1.6-2.3); Potassium 3.1 mmol/L (3.4-5.0); Sodium 142 mmol/L (137-145)
[2020-12-05] MEDS: PROMETHAZINE HCL 12.5 MG TABLET PO ×2 (06:24→19:30)
[2020-12-05] MEDS: POTASSIUM CHLORIDE 20 MEQ TABLET.ER PO ×2 (08:07→16:15)
[2020-12-05] MEDS: ENOXAPARIN 40 MG/0.4 ML SYRINGE SUB-Q (08:07)
[2020-12-05] MEDS: PANTOPRAZOLE 40 MG TABLET PO (08:07)
[2020-12-05] MEDS: LORATADINE 10 MG TABLET PO (09:43)
[2020-12-05] MEDS: MAG HYDROX/AL HYDROX/SIMETH 30 ML UDC PO (10:58)
--- NOTE | 2020-12-05 11:28 | PM.PNGS ---
Progress Note: A&P Assessment and Plan (1) Anastomotic leak of intestine: Code(s): K91.89 - Other postprocedural complications and disorders of digestive system Status: Acute Assessment and Plan: Advance to regular diet today Increase activity Possibly home in 1-2 days if pain improved and tolerating diet Follow up in 1 week in office. Subjective Subjective Date/Time Seen: 12/05/20 11:28 Interval history: Tolerating diet but having some cramping abdominal pain. No fevers. Nausea better. Exam Const: General: comfortable, no acute distress, alert and awake Orientation/consciousness: patient oriented x3 Resp: Effort & Inspection: normal respiratory effort Auscultation: crackles bilateral at the base Cardio: Rate: regular rate Rhythm: regular rhythm GI: Inspection: non-distended and incision (Midline incision clean and dry with kareen intact) GI Palp: Yes Soft to palpation and Yes Tenderness to palpation present (GI) (appropriate incisional tenderness) Auscultation: normal bowel sounds Other: Ostomy functioning well with soft brown stool in bag. Stoma pink and healthy. Skin: General skin exam: normal color Neuro: General: moves all extremities and no focal motor deficits Extrem: General: no calf tenderness, edema bilateral (Improved, bilateral lower extremities 1+ pitting) and pedal edema bilaterally Psych: Mental Status: mental status grossly normal Insight: Good insight present (Psych) Judgement: Good judgement present (Psych) Objective Data Vital Signs Vital Signs: Vital Signs - 24 hr 12/04/20 14:00 12/04/20 21:00 12/05/20 05:09 Temperature 36.3 C L 37.0 C 36.9 C Pulse Rate 66 82 80 Respiratory Rate 18 16 16 Blood Pressure 121/73 127/68 119/59 L Pulse Oximetry 96 92 92 Intake/Output Intake/Output: Intake & Output 12/02/20 12/03/20 12/04/20 12/05/20 23:59 23:59 23:59 23:59 Intake Total 3050 1680 2040 510 Output Total 2049 3200 3350 1200 Balance 1000 -1520 -1310 -690 Meds/Results Medications: Active Medications Generic Name Dose Route Start Last Admin Trade Name Freq PRN Reason Stop Dose Admin Acetaminophen 1,000 mg 12/02/20 11:43 Acetaminophen 500 Mg Tablet PO Q6H PRN Mild Pain (1-3) or Fever Hydrocodone Bitart/Acetaminophen 1 tab 12/04/20 11:45 12/04/20 22:20 Hydrocodone/Acetaminophen (*Crx) 5-325 Mg Tablet PO 1 tab Q4H PRN Administration Pain Rated 4-6 Hydrocodone Bitart/Acetaminophen 1 tab 12/04/20 11:45 Hydrocodone/Acetaminophen (*Crx) 10-325 Mg Tablet PO Q4H PRN Pain Rated 7-10 Al Hydrox/Mg Hydrox/Simethicone 30 ml 12/04/20 11:44 12/05/20 10:58 Mag Hydrox/Al Hydrox/Simeth 30 Ml Udc PO 30 ml Q6H PRN Administration Indigestion Enoxaparin Sodium 40 mg 11/30/20 09:00 12/05/20 08:07 Enoxaparin 40 Mg/0.4 Ml Syringe SUB-Q 40 mg DAILY JUDY Administration Hydromorphone HCl 0.5 mg 12/04/20 11:46 Hydromorphone Hcl Inj (*Crx) 1 Mg/Ml Syr IV PUSH Q2H PRN Pain Rated 7-10 Loratadine 10 mg 12/05/20 09:00 12/05/20 09:43 Loratadine 10 Mg Tablet PO 10 mg QAM JUDY Administration Ondansetron HCl 4 mg 11/28/20 23:56 12/04/20 22:20 Ondansetron Inj 4 Mg/2 Ml Vial IV PUSH 4 mg Q4H PRN Administration Nausea And Vomiting Pantoprazole Sodium 40 mg 12/02/20 15:51 12/05/20 08:07 Pantoprazole 40 Mg Tablet PO 40 mg QAM JUDY Administration Phenol 1 spray 12/01/20 12:27 12/01/20 15:40 Phenol/Sod Pheno Holden Plasencia (*Bkc) MUCOUS MEM 1 spray PRN PRN Administration Sore Throat Potassium Chloride 20 meq 12/04/20 17:00 12/05/20 08:07 Potassium Chloride 20 Meq Tablet.Er PO 20 meq BIDWM JUDY Administration Promethazine HCl 12.5 mg 12/03/20 14:58 12/05/20 06:24 Promethazine Hcl 12.5 Mg Tablet PO 12.5 mg Q4H PRN Administration Nausea And Vomiting Radiology Results: ITS Impressions Enema w/Water Soluble 11/29/20 10
--- NOTE | 2020-12-05 11:36 | PCNWS ---
Weekly nutritional screen. Patient has advanced to a regular diet. States to having peaches this morning, reported some gas. Ordering patient applesauce and hot tea for lunch. No further nutritional needs at this time.
[2020-12-05] MEDS: HYDROcodone/acetaminophen (*CRX) 5-325 MG TABLET 1 TAB PO ×2 (12:41→19:26)
[2020-12-05 14:00] VITALS: BP 121/60; PULSE 80; RESP 18; TEMP 36.9; O2SAT 93
[2020-12-05 20:29] VITALS: BP 136/71; PULSE 88; RESP 18; TEMP 37.6; O2SAT 92
[2020-12-06] VITALS (7 sets, daily range): BP systolic 113–133; BP diastolic 63–69; PULSE 87–90; RESP 18; TEMP 36.6–37.8; O2SAT 91–93
[2020-12-06 05:49] LABS: Hemoglobin 10.9 g/dL (12.0-15.0); Mean Corpuscular HGB Conc 32.1 g/dl (32-36); Mean Corpuscular Hemoglobin 27.5 pg (26-34); Mean Corpuscular Volume 85.6 fl (80-100); Mean Platelet Volume 10.6 fl (7.4-10.4); Platelet Count Result 471 k/mm3 (150-375); Red Blood Count 3.97 M/mm3 (4.2-5.4); Red Cell Distribution Width 13.5 % (11.5-14.5); White Blood Count 11.8 K/mm3 (4.5-10.0)
[2020-12-06 06:03] LABS: Anion Gap 6 mmol/L (8-16); Blood Urea Nitrogen 10 mg/dL (7-17); Calcium 8.4 mg/dL (8.4-10.2); Carbon Dioxide 30 mmol/L (22-30); Chloride 104 mmol/L (98-107); Estimated CRCL calculation 61 ml/min; Estimated Glomerular Filt Rate > 60; Glucose 92 mg/dL (65-105); Potassium 3.7 mmol/L (3.4-5.0); Sodium 140 mmol/L (137-145)
[2020-12-06] MEDS: HYDROcodone/acetaminophen (*CRX) 5-325 MG TABLET 1 TAB PO (08:25)
[2020-12-06] MEDS: PANTOPRAZOLE 40 MG TABLET PO (08:25)
[2020-12-06] MEDS: POTASSIUM CHLORIDE 20 MEQ TABLET.ER PO (08:25)
[2020-12-06] MEDS: LORATADINE 10 MG TABLET PO (08:25)
[2020-12-06] MEDS: ENOXAPARIN 40 MG/0.4 ML SYRINGE SUB-Q (08:27)
--- NOTE | 2020-12-06 12:11 | PM.PNGS ---
Progress Note: A&P Assessment and Plan (1) Anastomotic leak of intestine: Code(s): K91.89 - Other postprocedural complications and disorders of digestive system Status: Acute Assessment and Plan: Toerating diet. Encouraged to avoid constipation Increase activity Possibly home in 1-2 days if pain improved and tolerating diet Follow up in 1 week in office. Additional Plan Did Doppler venous ultrasound lower extremities to rule out DVT. There was none. Because the pain in her calf will use a K-pad periodically on that and go back to using SCD hose if she is going to be in bed for more than 2 hours. (pt on subq prophlatic Lovenox) Subjective Subjective Date/Time Seen: 12/06/20 12:11 Post Op day: POD #7 Patient reports: feels better Interval history: Patient lying in bed when I came in the room. She states she is feeling improved today but did notice some left posterior calf pain. To rule out DVT tea a ultrasound Doppler study of bilateral lower extremities was done and showed no DVT. Patient denies abdominal pain. She is tolerating a soft diet. Review of Systems Review of Systems: All systems reviewed & are unremarkable except as noted in HPI and below Constitutional: Constitutional: Reports as per HPI, Reports no additional constitutional complaints, Denies chills and Denies fever(s) Cardiovascular: Cardiovascular: Reports no additional cardiovascular complaints, Denies chest pain, Reports leg edema and Denies dyspnea Respiratory: Respiratory: Reports no additional respiratory complaints, Denies cough and Denies dyspnea Gastrointestinal: Gastrointestinal: Reports as per HPI and Reports no additional gastrointestinal complaints Musculoskeletal: Comments: Patient had some posterior calf pain on the left. She did not however have any significant edema or swelling of that leg. (Doppler ultrasound was negative for DVT) Neurologic: Reports system reviewed and no additional complaints, except as documented, Denies Abnormal speech present and Denies focal weakness Exam Const: General: cooperative, comfortable and no acute distress Cardio: Jugular venous distension: no JVD Heart sounds: S1 normal heart sound present and S2 normal heart sound present GI: Inspection: incision ( Clean and dry with mild serous drainage on the lower part.), obesity and other (ostomy pink with some gas and moderate amount of stool in bag) Auscultation: normal bowel sounds Other: Ostomy functioning well with soft brown stool in bag. Stoma pink and healthy. Skin: General skin exam: normal color and no rashes or lesions noted Neuro: General: oriented to person, oriented to place and oriented to time Speech: No Abnormal speech present Extrem: Right lower extremity: normal to inspection; no cyanosis and no edema Left lower extremity: normal to inspection; no cyanosis and no edema Psych: Appearance: grossly normal Objective Data Vital Signs Vital Signs: Vital Signs - 24 hr 12/05/20 14:00 12/05/20 20:29 12/06/20 06:00 Temperature 36.9 C 37.6 C H 36.6 C Pulse Rate 80 88 87 Respiratory Rate 18 18 18 Blood Pressure 121/60 136/71 113/69 Pulse Oximetry 93 92 93 12/06/20 08:25 12/06/20 11:08 Temperature Pulse Rate 87 Respiratory Rate 18 Blood Pressure Pulse Oximetry 91 91 Intake/Output Intake/Output: Intake & Output 12/03/20 12/04/20 12/05/20 12/06/20 23:59 23:59 23:59 23:59 Intake Total 1680 2040 1220 470 Output Total 3200 3350 2350 700 Balance -1520 -1310 -1130 -230 Meds/Results Medications: Active Medications Generic Name Dose Route Start Last Admin Trade Name Freq PRN Reason Stop Dose Admin Acetaminophen 1,000 mg 12/02/20 11:43 Acetaminophen 500 Mg Tablet PO Q6H PRN Mild Pain (1-3) or Fever Hydrocodone Bitart/Acetaminophen 1 tab 12/04/20 11:45 12/06/20 08:25 Hydrocodone/Acetaminophen (*Crx) 5-325 Mg Tablet PO 1 tab Q4H PRN Administration Pain Rate
[2020-12-06] MEDS: MAG HYDROX/AL HYDROX/SIMETH 30 ML UDC PO (15:30)
[2020-12-06] MEDS: ACETAMINOPHEN 500 MG TABLET 1000 MG PO (18:01)
[2020-12-07 05:32] VITALS: BP 118/63; PULSE 77; RESP 18; TEMP 36.8; O2SAT 95
[2020-12-07] MEDS: ONDANSETRON INJ 4 MG/2 ML VIAL IV PUSH ×3 (05:46→18:21)
[2020-12-07] MEDS: HYDROcodone/acetaminophen (*CRX) 5-325 MG TABLET 1 TAB PO (05:50)
[2020-12-07] MEDS: LORATADINE 10 MG TABLET PO (08:14)
[2020-12-07] MEDS: PANTOPRAZOLE 40 MG TABLET PO (08:14)
[2020-12-07] MEDS: ENOXAPARIN 40 MG/0.4 ML SYRINGE SUB-Q (08:14)
[2020-12-07] MEDS: POTASSIUM CHLORIDE 20 MEQ TABLET.ER PO ×2 (08:15→18:22)
[2020-12-07 08:24] LABS: Hematocrit 35.9 % (37.0-47.0); Hemoglobin 11.1 g/dL (12.0-15.0); Mean Corpuscular HGB Conc 30.9 g/dl (32-36); Mean Corpuscular Hemoglobin 27.5 pg (26-34); Mean Corpuscular Volume 89.1 fl (80-100); Mean Platelet Volume 10.3 fl (7.4-10.4); Platelet Count Result 445 k/mm3 (150-375); Red Blood Count 4.03 M/mm3 (4.2-5.4); Red Cell Distribution Width 13.6 % (11.5-14.5); White Blood Count 16.7 K/mm3 (4.5-10.0)
[2020-12-07 09:11] LABS: Anion Gap 10 mmol/L (8-16); Blood Urea Nitrogen 11 mg/dL (7-17); Calcium 8.5 mg/dL (8.4-10.2); Carbon Dioxide 22 mmol/L (22-30); Chloride 104 mmol/L (98-107); Estimated CRCL calculation 79 ml/min; Estimated Glomerular Filt Rate > 60; Glucose 74 mg/dL (65-105); Sodium 136 mmol/L (137-145)
[2020-12-07 11:56] VITALS: TEMP 37.2
[2020-12-07 12:07] LABS: Add Urine Microscopic? YES; Appearance Urine Clear (Clear); Bacteria Urine Trace /hpf; Bilirubin Urine Negative (Negative); Blood Urine Negative (Negative); Color Urine Yellow (Yellow); Glucose Urine UA Negative (Negative); Ketones Urine 2+ mg/dL (Negative); Leukocyte Esterase Ur Negative LEU/UL (Negative); Mucus Urine Rare /lpf; Nitrate Urine Negative (Negative); Protein Urine Negative (Negative); RBC Urine 0-2 /hpf (0-2); Squamous Epithelial Cell Urine Rare /hpf (Few); Urobilinogen Urine Negative mg/dL (<2.0); WBC Urine 0-3 /hpf
[2020-12-07] MEDS: ACETAMINOPHEN 500 MG TABLET 1000 MG PO ×2 (12:13→18:21)
--- NOTE | 2020-12-07 13:22 | PM.PNGS ---
Progress Note: A&P Assessment and Plan (1) Anastomotic leak of intestine: Code(s): K91.89 - Other postprocedural complications and disorders of digestive system Status: Acute Assessment and Plan: Tolerating diet. Encouraged to avoid constipation Increase activity Possibly home in 1-2 days if pain improved and tolerating diet Fever started up again now several days after being off the antibiotics. ( consider urinary tract infection, atelectasis or pneumonia, DVT (ruled out yesterday by ultrasound study), deep infection in the abdomen. Will check clean-catch UA today also try doing a two view chest x-ray to see if there is any signs of pneumonia. Wound is clean and dry so doubt that this is coming from a wound infection. If none of the above sleeve turner to be possible could skin sitter CT scan of the abdomen pelvis to check for abscess tomorrow. Follow up in 1 week in office. (2) Atelectasis: Code(s): J98.11 - Atelectasis Status: Acute Assessment and Plan: CC chest x-ray report This may be the cause of her fever. Will obtain a sputum specimen in start Levaquin prophylactically in view of for 2 episodes of spiking a fever. Additional Plan Did Doppler venous ultrasound lower extremities to rule out DVT. There was none. Because the pain in her calf will use a K-pad periodically on that and go back to using SCD hose if she is going to be in bed for more than 2 hours. (pt on subq prophlatic Lovenox). Did urinalysis which was negative so far like until UTIs ruled out Did chest x-ray which shows atelectasis in 1 lower lobe could not rule out pneumonia. Therefore, will do respiratory treatments t.i.d. and before starting antibiotics obtain a sputum sample. Then will probably start on Levaquin q day and repeat CBC in the morning. Possibly home tomorrow on 5 days of Levaquin for postop pneumonia. Subjective Subjective Date/Time Seen: 12/07/20 13:22 Post Op day: POD # 8 Patient reports: tolerating a regular diet, voiding w/o difficulty and fever ( Started last night with a temp to 100 F) Interval history: nurse reports the patient became slightly nauseated and ran a fever to 100 last evening. This happened again early this morning's about 6:30 a.m.. Patient states she did tolerate her breakfast however. She has had a couple more bowel movements. She has noticed some burning with urination. She has not noticed bringing up any specific purulent sputum. There has been no drainage from her incision that she knows of. Doppler studies of her legs were negative yesterday. Review of Systems Review of Systems: All systems reviewed & are unremarkable except as noted in HPI and below Constitutional: Constitutional: Reports as per HPI, Reports no additional constitutional complaints, Denies chills and Denies fever(s) Cardiovascular: Cardiovascular: Reports no additional cardiovascular complaints, Denies chest pain, Reports leg edema and Denies dyspnea Respiratory: Respiratory: Reports no additional respiratory complaints, Denies cough and Denies dyspnea Gastrointestinal: Gastrointestinal: Reports as per HPI, Reports abdominal pain ( Mild near the ostomy and incision), Denies heartburn and Denies fecal incontinence Comments: patient has no is a little bit of discomfort near the ostomy when it is functional. Genitourinary: Comments: Mild burning with urination ever since Roberson catheter was removed. No specific increased frequency Neurologic: Reports system reviewed and no additional complaints, except as documented, Denies Abnormal speech present and Denies focal weakness Exam Const: General: cooperative, comfortable and no acute distress Orientation/consciousness: oriented to person, oriented to place and oriented to time Cardio: Jugular venous distension: no JVD Heart sounds: S1 normal heart sound present and S2 normal heart sound present GI: Inspection: incision ( Clean and dry with m
[2020-12-07 14:00] VITALS: BP 118/57; PULSE 96; RESP 16; TEMP 37.3; O2SAT 94
[2020-12-07 17:30] VITALS: TEMP 37.3
[2020-12-07] MEDS: HYDROcodone/acetaminophen (*CRX) 10-325 MG TABLET 1 TAB PO (20:50)
[2020-12-07 22:00] VITALS: BP 139/65; PULSE 99; RESP 16; TEMP 36.2; O2SAT 93
[2020-12-08 05:35] VITALS: BP 124/73; PULSE 90; RESP 16; TEMP 36.2; O2SAT 92
[2020-12-08 05:41] LABS: Basophils Absolute Auto 0.1 K/mm3 (0.0-0.1); Basophils Percent Auto 0.5 % (0.2-1.2); Eosinophils Absolute Auto 0.3 K/mm3 (0-0.3); Eosinophils Percent Auto 1.9 % (0-4.4); Hematocrit 32.4 % (37.0-47.0); Hemoglobin 10.6 g/dL (12.0-15.0); Immature Granulocyte Absolute 0.22 K/mm3 (0.00-0.031); Immature Granulocyte Percent A 1.3 % (0-0.5); Lymphocytes Absolute Auto 1.56 K/mm3 (0.9-3.2); Lymphocytes Percent Auto 9.1 % (18.3-44.2); Mean Corpuscular HGB Conc 32.7 g/dl (32-36); Mean Corpuscular Volume 85.5 fl (80-100); Mean Platelet Volume 10.4 fl (7.4-10.4); Monocytes Absolute Auto 1.2 K/mm3 (0.1-0.6); Monocytes Percent Auto 6.7 % (2.6-8.5); Neutrophils Absolute Auto 13.8 K/mm3 (1.3-6.7); Neutrophils Percent Auto 80.5 % (45.5-73.1); Platelet Count Result 431 k/mm3 (150-375); Red Blood Count 3.79 M/mm3 (4.2-5.4); Red Cell Distribution Width 13.6 % (11.5-14.5); White Blood Count 17.1 K/mm3 (4.5-10.0)
[2020-12-08] MEDS: ONDANSETRON INJ 4 MG/2 ML VIAL IV PUSH ×2 (08:24→15:09)
[2020-12-08] MEDS: LORATADINE 10 MG TABLET PO (08:27)
[2020-12-08] MEDS: PANTOPRAZOLE 40 MG TABLET PO (08:27)
[2020-12-08] MEDS: ENOXAPARIN 40 MG/0.4 ML SYRINGE SUB-Q (08:27)
[2020-12-08] MEDS: POTASSIUM CHLORIDE 20 MEQ TABLET.ER PO ×2 (08:27→16:40)
[2020-12-08] MEDS: HYDROcodone/acetaminophen (*CRX) 10-325 MG TABLET 1 TAB PO ×2 (09:10→19:11)
--- NOTE | 2020-12-08 10:13 | PM.PNGS ---
Progress Note: A&P Assessment and Plan (1) Anastomotic leak of intestine: Code(s): K91.89 - Other postprocedural complications and disorders of digestive system Status: Acute (2) Superficial postoperative wound infection: Code(s): T81.49XA - Infection following a procedure, other surgical site, initial encounter Status: Acute Assessment and Plan: Continue IV Levaquin Wound opened at bedside and packed with 1/4 iodoform gauze. Repeat CBC in AM, if leukocytosis no better, will get CT abd/pelvis Subjective Subjective Date/Time Seen: 12/08/20 10:13 Interval history: Fevers over weekend, but none today. Now having redness, pain, and draining at incision. Nauseated again. Ostomy functioning. Exam GI: Inspection: other (ostomy patent and functioning) Other: Erythema and scant purulent drainage noted at lower portion of midline incision. 3 kareen removed and wound probed with q-tip. Purulent drainage evacuated. Wound tracks deep and slightly cephalad, but fascia appears intact. Wound packed with 1/4 iodoform gauze. Objective Data Vital Signs Vital Signs: Vital Signs - 24 hr 12/07/20 11:56 12/07/20 14:00 12/07/20 17:30 Temperature 37.2 C 37.3 C 37.3 C Pulse Rate 96 Respiratory Rate 16 Blood Pressure 118/57 L Pulse Oximetry 94 12/07/20 22:00 12/08/20 05:35 Temperature 36.2 C L 36.2 C L Pulse Rate 99 90 Respiratory Rate 16 16 Blood Pressure 139/65 124/73 Pulse Oximetry 93 92 Intake/Output Intake/Output: Intake & Output 12/05/20 12/06/20 12/07/20 12/08/20 23:59 23:59 23:59 23:59 Intake Total 1220 640 430 540 Output Total 2350 900 1200 600 Balance -1130 -260 -770 -60 Meds/Results Medications: Active Medications Generic Name Dose Route Start Last Admin Trade Name Freq PRN Reason Stop Dose Admin Acetaminophen 1,000 mg 12/02/20 11:43 12/07/20 18:21 Acetaminophen 500 Mg Tablet PO 1,000 mg Q6H PRN Administration Mild Pain (1-3) or Fever Hydrocodone Bitart/Acetaminophen 1 tab 12/04/20 11:45 12/07/20 05:50 Hydrocodone/Acetaminophen (*Crx) 5-325 Mg Tablet PO 1 tab Q4H PRN Administration Pain Rated 4-6 Hydrocodone Bitart/Acetaminophen 1 tab 12/04/20 11:45 12/08/20 09:10 Hydrocodone/Acetaminophen (*Crx) 10-325 Mg Tablet PO 1 tab Q4H PRN Administration Pain Rated 7-10 Al Hydrox/Mg Hydrox/Simethicone 30 ml 12/04/20 11:44 12/06/20 15:30 Mag Hydrox/Al Hydrox/Simeth 30 Ml Udc PO 30 ml Q6H PRN Administration Indigestion Enoxaparin Sodium 40 mg 11/30/20 09:00 12/08/20 08:27 Enoxaparin 40 Mg/0.4 Ml Syringe SUB-Q 40 mg DAILY JUDY Administration Hydromorphone HCl 0.5 mg 12/04/20 11:46 Hydromorphone Hcl Inj (*Crx) 1 Mg/Ml Syr IV PUSH Q2H PRN Pain Rated 7-10 Loratadine 10 mg 12/05/20 09:00 12/08/20 08:27 Loratadine 10 Mg Tablet PO 10 mg QAM JUDY Administration Ondansetron HCl 4 mg 11/28/20 23:56 12/08/20 08:24 Ondansetron Inj 4 Mg/2 Ml Vial IV PUSH 4 mg Q4H PRN Administration Nausea And Vomiting Pantoprazole Sodium 40 mg 12/02/20 15:51 12/08/20 08:27 Pantoprazole 40 Mg Tablet PO 40 mg QAM JUDY Administration Phenol 1 spray 12/01/20 12:27 12/01/20 15:40 Phenol/Sod Pheno Mercer Plasencia (*Bkc) MUCOUS MEM 1 spray PRN PRN Administration Sore Throat Potassium Chloride 20 meq 12/04/20 17:00 12/08/20 08:27 Potassium Chloride 20 Meq Tablet.Er PO 20 meq BIDWM [facility] Administration Promethazine HCl 12.5 mg 12/03/20 14:58 12/05/20 19:30 Promethazine Hcl 12.5 Mg Tablet PO 12.5 mg Q4H PRN Administration Nausea And Vomiting Saccharomyces Boulardii 250 mg 12/08/20 13:00 Saccharomyces Boulardii 250 Mg Capsule PO TID [facility] Radiology Results: ITS Impressions Enema w/Water Soluble 11/29/20 10:07 IMPRESSION: Rectosigmoid anastomosis leak. Venous Doppler Study 12/06/20 10:36 IMPRESSION: 1. N
[2020-12-08] MEDS: SACCHAROMYCES BOULARDII 250 MG CAPSULE PO ×2 (12:00→16:40)
[2020-12-08] MEDS: metroNIDAZOLE 500 MG/ISO 100ML 500 MG/100 ML BAG 100 MG IVPB ×2 (13:31→21:02)
[2020-12-08 14:00] VITALS: BP 122/66; PULSE 100; RESP 18; TEMP 36.1; O2SAT 94
[2020-12-08] MEDS: PROMETHAZINE HCL 12.5 MG TABLET PO (16:40)
[2020-12-08 17:50] VITALS: TEMP 37.8
[2020-12-08] MEDS: ACETAMINOPHEN 500 MG TABLET 1000 MG PO (17:50)
[2020-12-08 22:00] VITALS: BP 110/60; PULSE 93; RESP 16; TEMP 35.8; O2SAT 94
[2020-12-09] MEDS: metroNIDAZOLE 500 MG/ISO 100ML 500 MG/100 ML BAG 100 MG IVPB ×3 (05:38→21:30)
[2020-12-09 05:42] LABS: Hematocrit 32.8 % (37.0-47.0); Hemoglobin 10.5 g/dL (12.0-15.0); Mean Corpuscular Hemoglobin 27.4 pg (26-34); Mean Corpuscular Volume 85.6 fl (80-100); Mean Platelet Volume 10.4 fl (7.4-10.4); Platelet Count Result 449 k/mm3 (150-375); Red Blood Count 3.83 M/mm3 (4.2-5.4); Red Cell Distribution Width 13.8 % (11.5-14.5); White Blood Count 14.2 K/mm3 (4.5-10.0)
[2020-12-09] MEDS: HYDROcodone/acetaminophen (*CRX) 5-325 MG TABLET 1 TAB PO (05:46)
[2020-12-09 05:58] LABS: Anion Gap 7 mmol/L (8-16); Blood Urea Nitrogen 7 mg/dL (7-17); Calcium 8.2 mg/dL (8.4-10.2); Carbon Dioxide 26 mmol/L (22-30); Chloride 103 mmol/L (98-107); Estimated CRCL calculation 79 ml/min; Estimated Glomerular Filt Rate > 60; Glucose 79 mg/dL (65-105); Potassium 3.9 mmol/L (3.4-5.0); Sodium 136 mmol/L (137-145)
[2020-12-09 06:00] VITALS: BP 138/68; PULSE 103; RESP 16; TEMP 36.1; O2SAT 95
[2020-12-09] MEDS: ONDANSETRON INJ 4 MG/2 ML VIAL IV PUSH ×2 (09:12→18:31)
[2020-12-09] MEDS: PANTOPRAZOLE 40 MG TABLET PO (11:30)
[2020-12-09] MEDS: POTASSIUM CHLORIDE 20 MEQ TABLET.ER PO (12:37)
[2020-12-09] MEDS: PROMETHAZINE HCL 12.5 MG TABLET PO (12:37)
[2020-12-09] MEDS: ENOXAPARIN 40 MG/0.4 ML SYRINGE SUB-Q (12:37)
[2020-12-09] MEDS: LORATADINE 10 MG TABLET PO (12:38)
[2020-12-09] MEDS: SACCHAROMYCES BOULARDII 250 MG CAPSULE PO ×2 (12:38→17:29)
[2020-12-09] MEDS: polyethylene glycoL 3350 17 GM POWD.PACK PO (12:38)
[2020-12-09] MEDS: HYDROcodone/acetaminophen (*CRX) 10-325 MG TABLET 1 TAB PO ×2 (13:16→20:52)
--- NOTE | 2020-12-09 13:50 | PM.PNGS ---
Progress Note: A&P Assessment and Plan (1) Superficial postoperative wound infection: Code(s): T81.49XA - Infection following a procedure, other surgical site, initial encounter Status: Acute Assessment and Plan: Repeat CT this AM shows possible LLQ abscess or fluid collection. No undrained abscess at midline incision. Will plan for CT guided drain placement tomorrow. Continue Levaquin and Flagyl. Persistent nausea likely related to infection/antibiotics. Zofran/Phenergan not helping. Already on PPI. Will try Reglan today. (2) Anastomotic leak of intestine: Code(s): K91.89 - Other postprocedural complications and disorders of digestive system Status: Acute Subjective Subjective Date/Time Seen: 12/09/20 13:50 Interval history: Patient had fever last night. Still having significant nausea that is constant. Pain mostly at midline incision where the abscess was drained. Exam GI: Other: Slight purulent drainage at midline incision. Erythema slightly improved. Ostomy pink, minimal gas and stool in bag. Objective Data Vital Signs Vital Signs: Vital Signs - 24 hr 12/08/20 14:00 12/08/20 17:50 12/08/20 22:00 Temperature 36.1 C L 37.8 C H 35.8 C L Pulse Rate 100 93 Respiratory Rate 18 16 Blood Pressure 122/66 110/60 Pulse Oximetry 94 94 12/09/20 06:00 Temperature 36.1 C L Pulse Rate 103 H Respiratory Rate 16 Blood Pressure 138/68 Pulse Oximetry 95 Intake/Output Intake/Output: Intake & Output 12/06/20 12/07/20 12/08/20 12/09/20 23:59 23:59 23:59 23:59 Intake Total 897 010 1040 100 Output Total 900 1200 1450 700 Balance -260 -770 100 -600 Meds/Results Medications: Active Medications Generic Name Dose Route Start Last Admin Trade Name Freq PRN Reason Stop Dose Admin Acetaminophen 1,000 mg 12/02/20 11:43 12/08/20 17:50 Acetaminophen 500 Mg Tablet PO 1,000 mg Q6H PRN Administration Mild Pain (1-3) or Fever Hydrocodone Bitart/Acetaminophen 1 tab 12/04/20 11:45 12/09/20 05:46 Hydrocodone/Acetaminophen (*Crx) 5-325 Mg Tablet PO 1 tab Q4H PRN Administration Pain Rated 4-6 Hydrocodone Bitart/Acetaminophen 1 tab 12/04/20 11:45 12/09/20 13:16 Hydrocodone/Acetaminophen (*Crx) 10-325 Mg Tablet PO 1 tab Q4H PRN Administration Pain Rated 7-10 Al Hydrox/Mg Hydrox/Simethicone 30 ml 12/04/20 11:44 12/06/20 15:30 Mag Hydrox/Al Hydrox/Simeth 30 Ml Udc PO 30 ml Q6H PRN Administration Indigestion Enoxaparin Sodium 40 mg 11/30/20 09:00 12/09/20 12:37 Enoxaparin 40 Mg/0.4 Ml Syringe SUB-Q 40 mg DAILY JUDY Administration Hydromorphone HCl 0.5 mg 12/04/20 11:46 Hydromorphone Hcl Inj (*Crx) 1 Mg/Ml Syr IV PUSH Q2H PRN Pain Rated 7-10 Levofloxacin/Dextrose 750 mg in 150 mls @ 100 mls/hr 12/08/20 11:20 12/09/20 11:26 Levaquin 750 Mg/D5w 150 Ml IVPB 100 mls/hr QAM JUDY Administration Metronidazole 500 mg in 100 mls @ 100 mls/hr 12/08/20 14:00 12/09/20 13:19 Flagyl 500 Mg/Iso Soln 100 Ml IVPB 100 mls/hr Q8HR JUDY Administration Loratadine 10 mg 12/05/20 09:00 12/09/20 12:38 Loratadine 10 Mg Tablet PO 10 mg QAM JUDY Administration Metoclopramide HCl 10 mg 12/09/20 16:30 Metoclopramide Hcl 10 Mg Tablet PO ACHS JUDY Ondansetron HCl 4 mg 11/28/20 23:56 12/09/20 09:12 Ondansetron Inj 4 Mg/2 Ml Vial IV PUSH 4 mg Q4H PRN Administration Nausea And Vomiting Pantoprazole Sodium 40 mg 12/02/20 15:51 12/09/20 11:30 Pantoprazole 40 Mg Tablet PO 40 mg QAM JUDY Administration Polyethylene Glycol 17 gm 12/09/20 12:30 12/09/20 12:38 Polyethylene Glycol 3350 17 Gm Powd.Pack PO 17 gm QAM JUDY Administration Potassium Chloride 20 meq 12/04/20 17:00 12/09/20 12:37 Potassium Chloride 20 Meq Tablet.Er PO 20 meq BIDWM JUDY Administration Saccharomyces Boulardii 250 mg 12/08/20 13:00 12/09/20 12:45 Saccharomyces Boulardii 250
[2020-12-09 14:00] VITALS: BP 114/59; PULSE 102; RESP 18; TEMP 36.4; O2SAT 92
[2020-12-09] MEDS: METOCLOPRAMIDE HCL 10 MG TABLET PO ×2 (17:29→20:53)
[2020-12-09 20:36] VITALS: BP 115/57; PULSE 100; RESP 20; TEMP 36.8; O2SAT 93
[2020-12-10 05:35] LABS: Hemoglobin 11.2 g/dL (12.0-15.0); Mean Corpuscular HGB Conc 31.1 g/dl (32-36); Mean Corpuscular Hemoglobin 27.2 pg (26-34); Mean Corpuscular Volume 87.4 fl (80-100); Mean Platelet Volume 10.9 fl (7.4-10.4); Platelet Count Result 524 k/mm3 (150-375); Red Blood Count 4.12 M/mm3 (4.2-5.4); Red Cell Distribution Width 14.1 % (11.5-14.5)
[2020-12-10 05:37] VITALS: BP 115/60; PULSE 114; RESP 16; TEMP 36.7; O2SAT 93
[2020-12-10 05:43] LABS: INR 1.2; Prothrombin Time 15.6 Seconds (11.1-14.7)
[2020-12-10] MEDS: metroNIDAZOLE 500 MG/ISO 100ML 500 MG/100 ML BAG 100 MG IVPB ×3 (05:50→21:29)
[2020-12-10] MEDS: METOCLOPRAMIDE HCL 10 MG TABLET PO ×3 (05:51→20:56)
[2020-12-10 06:03] LABS: Anion Gap 10 mmol/L (8-16); Blood Urea Nitrogen 6 mg/dL (7-17); Calcium 8.2 mg/dL (8.4-10.2); Carbon Dioxide 22 mmol/L (22-30); Chloride 102 mmol/L (98-107); Estimated CRCL calculation 69 ml/min; Estimated Glomerular Filt Rate > 60; Glucose 97 mg/dL (65-105); Potassium 3.7 mmol/L (3.4-5.0); Sodium 134 mmol/L (137-145)
[2020-12-10] MEDS: LORATADINE 10 MG TABLET PO (08:36)
--- NOTE | 2020-12-10 10:47 | PM.PNGS ---
Progress Note: A&P Assessment and Plan (1) Superficial postoperative wound infection: Code(s): T81.49XA - Infection following a procedure, other surgical site, initial encounter Status: Acute Assessment and Plan: CT scan yesterday showed LLQ fluid collection or possible abscess. Plan for CT-guided percutaneous drain placement today in Radiology. WBC continues to trend down to 13,000 today. Continue IV Levaquin/Flagyl. Nausea seems to have improved with Reglan and was able to tolerate a regular diet yesterday. Currently NPO for procedure, but can be put back on a diet following this. Encouraged increasing activity, IS use. (2) Anastomotic leak of intestine: Code(s): K91.89 - Other postprocedural complications and disorders of digestive system Status: Acute Additional Plan I have discussed the patient's case and plan of care with Dr. Faye. Subjective Subjective Date/Time Seen: 12/10/20 10:47 Post Op day: 11 (Ex lap, Partial colon resection with end diverting colostomy) Patient reports: feels better, pain is less, tolerating a regular diet (yesterday, NPO after midnight for procedure), voiding w/o difficulty and afebrile Interval history: Patient seen today feeling well. She reports today she woke up without any nausea for the first time in days. She reports abdominal pain seems well controlled. Reports some indigestion, but otherwise no new complaints. Review of Systems Review of Systems: All systems reviewed & are unremarkable except as noted in HPI and below Constitutional: Constitutional: Reports as per HPI, Reports no additional constitutional complaints, Denies chills and Denies fever(s) Cardiovascular: Cardiovascular: Reports no additional cardiovascular complaints, Denies chest pain and Reports leg edema (improving) Respiratory: Respiratory: Reports no additional respiratory complaints, Denies cough and Denies dyspnea Gastrointestinal: Gastrointestinal: Reports as per HPI and Reports no additional gastrointestinal complaints Neurologic: Reports system reviewed and no additional complaints, except as documented, Denies Abnormal speech present and Denies focal weakness Exam Const: General: comfortable, no acute distress, alert and awake Orientation/consciousness: patient oriented x3 Resp: Effort & Inspection: normal respiratory effort Auscultation: clear to auscultation bilaterally Cardio: Rate: regular rate Rhythm: regular rhythm GI: Inspection: non-distended and incision (Midline dressing clean and dry) GI Palp: Yes Soft to palpation Auscultation: normal bowel sounds Other: Ostomy appliance recently changed by nurse, no stool or gas in new bag. Per the patient, her ostomy bag was full of soft brown stool when changed. Skin: General skin exam: normal color Neuro: General: moves all extremities and no focal motor deficits Extrem: General: no calf tenderness and edema bilateral (mild bilateral LE edema, improving) Psych: Mental Status: mental status grossly normal Insight: Good insight present (Psych) Judgement: Good judgement present (Psych) Objective Data Vital Signs Vital Signs: Vital Signs - 24 hr 12/09/20 14:00 12/09/20 20:36 12/10/20 05:37 Temperature 97.6 F 98.3 F 98.1 F Pulse Rate 102 H 100 114 H Respiratory Rate 18 20 16 Blood Pressure 114/59 L 115/57 L 115/60 Pulse Oximetry 92 93 93 Intake/Output Intake/Output: Intake & Output 12/07/20 12/08/20 12/09/20 12/10/20 23:59 23:59 23:59 23:59 Intake Total 430 1550 890 100 Output Total 1200 1450 700 350 Balance -770 100 190 -250 Meds/Results Medications: Active Medications Generic Name Dose Route Start Last Admin Trade Name Freq PRN Reason Stop Dose Admin Acetaminophen 1,000 mg 12/02/20 11:43 12/08/20 17:50 Acetaminophen 500 Mg Tablet PO 1,000 mg Q6H PRN Administration Mild Pain (1-3) or Fever Hydrocodone Bitart/Acetaminophen 1 tab 12/04/20 11:45 12/09/20 05:46 Hydroc
[2020-12-10] MEDS: HYDROcodone/acetaminophen (*CRX) 10-325 MG TABLET 1 TAB PO ×2 (13:15→20:57)
[2020-12-10 14:00] VITALS: BP 123/54; PULSE 107; RESP 16; TEMP 36.6; O2SAT 91
--- NOTE | 2020-12-10 14:41 | WPDMODSED ---
Moderate Sedation Note-Pt Data Patient Data Allergies Allergy/AdvReac Type Severity Reaction Status Date / Time grass pollen Allergy Hives Verified 11/28/20 23:28 Sulfa (Sulfonamide Allergy Hives Verified 11/28/20 23:28 Antibiotics) fentanyl AdvReac Hives Verified 11/28/20 23:28 morphine AdvReac Hives Verified 11/28/20 23:28 [id number]-Fra-Pns Reductase AdvReac Muscle Pain Verified 11/28/20 23:28 Inhibitor Home Medications Medication Instructions Recorded Confirmed Type cetirizine [Zyrtec] 10 mg PO DAILY 10/20/20 11/28/20 History rabeprazole 20 mg PO DAILY 10/20/20 11/28/20 History Adult Probiotic 3,000 mmu cells PO EVERY OTHER DAY 11/13/20 11/28/20 History cyanocobalamin (vitamin B-12) 500 mcg SUBLINGUAL DAILY 11/13/20 11/28/20 History epinephrine 0.3 ml SUBCUT ONCE PRN 11/13/20 11/28/20 History polyethylene glycol 3350 [Miralax] 34 g PO DAILY 11/13/20 11/28/20 History hydrocodone-acetaminophen 1 - 2 tablet PO Q6H PRN #15 tablet 11/21/20 11/28/20 Rx ibuprofen 600 mg PO Q6H PRN #14 tablet 11/21/20 11/28/20 Rx nystatin 5 ml PO QID #120 ml 11/22/20 11/28/20 Rx cefdinir 300 mg PO Q12H 5 Days #10 cap 11/25/20 11/28/20 Rx Current Medications: Active Medications Acetaminophen (Acetaminophen 500 Mg Tablet) 1,000 mg PO Q6H PRN PRN Reason: Mild Pain (1-3) or Fever Last Admin: 12/08/20 17:50 Dose: 1,000 mg Documented by: Hydrocodone Bitart/Acetaminophen (Hydrocodone/Acetaminophen (*Crx) 5-325 Mg Tablet) 1 tab PO Q4H PRN PRN Reason: Pain Rated 4-6 Last Admin: 12/09/20 05:46 Dose: 1 tab Documented by: Hydrocodone Bitart/Acetaminophen (Hydrocodone/Acetaminophen (*Crx) 10-325 Mg Tablet) 1 tab PO Q4H PRN PRN Reason: Pain Rated 7-10 Last Admin: 12/10/20 13:15 Dose: 1 tab Documented by: Al Hydrox/Mg Hydrox/Simethicone (Mag Hydrox/Al Hydrox/Simeth 30 Ml Udc) 30 ml PO Q6H PRN PRN Reason: Indigestion Last Admin: 12/06/20 15:30 Dose: 30 ml Documented by: Enoxaparin Sodium (Enoxaparin 40 Mg/0.4 Ml Syringe) 40 mg SUB-Q DAILY [facility] Last Admin: 12/09/20 12:37 Dose: 40 mg Documented by: Hydromorphone HCl (Hydromorphone Hcl Inj (*Crx) 1 Mg/Ml Syr) 0.5 mg IV PUSH Q2H PRN PRN Reason: Pain Rated 7-10 Levofloxacin/Dextrose (Levaquin 750 Mg/D5w 150 Ml) 750 mg in 150 mls @ 100 mls/[facility] [place] Infusion: 12/10/20 10:07 Dose: Infused Documented by: Metronidazole (Flagyl 500 Mg/Iso Soln 100 Ml) 500 mg in 100 mls @ 100 mls/hr IVPB Q8HR [facility] Last Infusion: 12/10/20 06:49 Dose: Infused Documented by: Loratadine (Loratadine 10 Mg Tablet) 10 mg PO [facility] Last Admin: 12/10/20 08:36 Dose: 10 mg Documented by: Metoclopramide HCl (Metoclopramide Hcl 10 Mg Tablet) 10 mg PO [facility] Last Admin: 12/10/20 05:51 Dose: 10 mg Documented by: Ondansetron HCl (Ondansetron Inj 4 Mg/2 Ml Vial) 4 mg IV PUSH Q4H PRN PRN Reason: Nausea And Vomiting Last Admin: 12/09/20 18:31 Dose: 4 mg Documented by: Pantoprazole Sodium (Pantoprazole 40 Mg Tablet) 40 mg PO [facility] Last Admin: 12/09/20 11:30 Dose: 40 mg Documented by: Polyethylene Glycol (Polyethylene Glycol 3350 17 Gm Powd.Pack) 17 [facility]m [facility] [place] Last Admin: 12/09/20 12:38 Dose: 17 gm Documented by: Potassium Chloride (Potassium Chloride 20 Meq Tablet.Er) 20 meq [facility] [place] Last Admin: 12/09/20 17:29 Dose: Not Given Documented by: Saccharomyces Boulardii (Saccharomyces Boulardii 250 Mg Capsule) 250 mg PO TID JUDY Last Admin: 12/09/20 17:29 Dose: 250 mg Documented by: Sedation/Anesthesia: No previous sedation/anesthesia problems (including family history). ON LICENSE OF [facility] Past Medical History Medical History Acute abdomen Chronic constipation Diverticulitis GERD (gastroesophageal reflux disease) Helicobacter pylori (H. pylori) infection Tachycardia Surgical History Surgical History H/O section History of total abdominal hys
[2020-12-10 16:16] VITALS: BP 111/54; PULSE 97; RESP 18; O2SAT 96
[2020-12-10] MEDS: SACCHAROMYCES BOULARDII 250 MG CAPSULE PO ×2 (17:31→20:56)
[2020-12-10] MEDS: PANTOPRAZOLE 40 MG TABLET PO (17:31)
[2020-12-10] MEDS: ENOXAPARIN 40 MG/0.4 ML SYRINGE SUB-Q (17:31)
[2020-12-10] MEDS: polyethylene glycoL 3350 17 GM POWD.PACK PO (17:32)
[2020-12-10 21:36] VITALS: BP 115/49; PULSE 51; RESP 20; TEMP 37.4; O2SAT 92
[2020-12-11 04:00] VITALS: BP 114/61; PULSE 108; RESP 18; TEMP 38.2; O2SAT 92
[2020-12-11 05:32] VITALS: TEMP 38.6
[2020-12-11 05:32] LABS: Hematocrit 32.9 % (37.0-47.0); Hemoglobin 10.2 g/dL (12.0-15.0); Mean Corpuscular Hemoglobin 27.1 pg (26-34); Mean Corpuscular Volume 87.5 fl (80-100); Mean Platelet Volume 10.5 fl (7.4-10.4); Platelet Count Result 520 k/mm3 (150-375); Red Blood Count 3.76 M/mm3 (4.2-5.4); Red Cell Distribution Width 14.2 % (11.5-14.5)
[2020-12-11 05:43] VITALS: O2SAT 93
[2020-12-11] MEDS: metroNIDAZOLE 500 MG/ISO 100ML 500 MG/100 ML BAG 100 MG IVPB ×3 (05:43→20:55)
[2020-12-11 05:49] LABS: Anion Gap 8 mmol/L (8-16); Blood Urea Nitrogen 6 mg/dL (7-17); Calcium 8.1 mg/dL (8.4-10.2); Carbon Dioxide 24 mmol/L (22-30); Chloride 105 mmol/L (98-107); Estimated CRCL calculation 69 ml/min; Estimated Glomerular Filt Rate > 60; Glucose 107 mg/dL (65-105); Potassium 3.9 mmol/L (3.4-5.0); Sodium 137 mmol/L (137-145)
[2020-12-11] MEDS: HYDROcodone/acetaminophen (*CRX) 10-325 MG TABLET 1 TAB PO (05:49)
[2020-12-11] MEDS: METOCLOPRAMIDE HCL 10 MG TABLET PO ×2 (05:49→11:43)
[2020-12-11 06:29] VITALS: TEMP 37.3
[2020-12-11] MEDS: LORATADINE 10 MG TABLET PO (09:34)
[2020-12-11] MEDS: SACCHAROMYCES BOULARDII 250 MG CAPSULE PO ×3 (09:35→17:15)
[2020-12-11] MEDS: polyethylene glycoL 3350 17 GM POWD.PACK PO (09:35)
--- NOTE | 2020-12-11 11:10 | PM.PNGS ---
Progress Note: A&P Assessment and Plan (1) Anastomotic leak of intestine: Code(s): K91.89 - Other postprocedural complications and disorders of digestive system Status: Acute Assessment and Plan: Continue Levaquin and Flagyl Nausea resolved with Reglan Await culture results from perc drain yesterday Fever this AM but WBC improving. Will plan to discharge once patient has remained afebrile for at least 24 hours. (2) Superficial postoperative wound infection: Code(s): T81.49XA - Infection following a procedure, other surgical site, initial encounter Status: Acute Subjective Subjective Date/Time Seen: 12/11/20 11:10 Interval history: Fever this AM but overall feeling better. Tolerating diet. Pain improving. Exam GI: Other: Packing changed in midline wound. Erythema much improved, still scant purulent drainage. Ostomy pink and functioning. Pigtail drain with minimal serous output. Objective Data Vital Signs Vital Signs: Vital Signs - 24 hr 12/10/20 14:00 12/10/20 16:16 12/10/20 21:36 Temperature 36.6 C 37.4 C Pulse Rate 107 H 97 51 L Respiratory Rate 16 18 20 Blood Pressure 123/54 L 111/54 L 115/49 L Pulse Oximetry 91 96 92 12/11/20 04:00 12/11/20 05:32 12/11/20 05:43 Temperature 38.2 C H 38.6 C H Pulse Rate 108 H Respiratory Rate 18 Blood Pressure 114/61 Pulse Oximetry 92 93 12/11/20 06:29 Temperature 37.3 C Pulse Rate Respiratory Rate Blood Pressure Pulse Oximetry Intake/Output Intake/Output: Intake & Output 12/08/20 12/09/20 12/10/20 12/11/20 23:59 23:59 23:59 23:59 Intake Total 1550 890 740 690 Output Total 7148 670 5935 1105 Balance 100 673 -514 -549 Meds/Results Medications: Active Medications Generic Name Dose Route Start Last Admin Trade Name Freq PRN Reason Stop Dose Admin Acetaminophen 1,000 mg 12/02/20 11:43 12/08/20 17:50 Acetaminophen 500 Mg Tablet PO 1,000 mg Q6H PRN Administration Mild Pain (1-3) or Fever Hydrocodone Bitart/Acetaminophen 1 tab 12/04/20 11:45 12/09/20 05:46 Hydrocodone/Acetaminophen (*Crx) 5-325 Mg Tablet PO 1 tab Q4H PRN Administration Pain Rated 4-6 Hydrocodone Bitart/Acetaminophen 1 tab 12/04/20 11:45 12/11/20 05:49 Hydrocodone/Acetaminophen (*Crx) 10-325 Mg Tablet PO 1 tab Q4H PRN Administration Pain Rated 7-10 Al Hydrox/Mg Hydrox/Simethicone 30 ml 12/04/20 11:44 12/06/20 15:30 Mag Hydrox/Al Hydrox/Simeth 30 Ml Udc PO 30 ml Q6H PRN Administration Indigestion Enoxaparin Sodium 40 mg 11/30/20 09:00 12/10/20 17:31 Enoxaparin 40 Mg/0.4 Ml Syringe SUB-Q 40 mg DAILY JUDY Administration Hydromorphone HCl 0.5 mg 12/04/20 11:46 Hydromorphone Hcl Inj (*Crx) 1 Mg/Ml Syr IV PUSH Q2H PRN Pain Rated 7-10 Levofloxacin/Dextrose 750 mg in 150 mls @ 100 mls/hr 12/08/20 11:20 12/11/20 11:04 Levaquin 750 Mg/D5w 150 Ml IVPB Infused QAM JUDY Infusion Metronidazole 500 mg in 100 mls @ 100 mls/hr 12/08/20 14:00 12/11/20 06:45 Flagyl 500 Mg/Iso Soln 100 Ml IVPB Infused Q8HR JUDY Infusion Loratadine 10 mg 12/05/20 09:00 12/11/20 09:34 Loratadine 10 Mg Tablet PO 10 mg QAM JUDY Administration Metoclopramide HCl 10 mg 12/09/20 16:30 12/11/20 05:49 Metoclopramide Hcl 10 Mg Tablet PO 10 mg ACHS JUDY Administration Ondansetron HCl 4 mg 11/28/20 23:56 12/09/20 18:31 Ondansetron Inj 4 Mg/2 Ml Vial IV PUSH 4 mg Q4H PRN Administration Nausea And Vomiting Pantoprazole Sodium 40 mg 12/02/20 15:51 12/10/20 17:31 Pantoprazole 40 Mg Tablet PO 40 mg QAM JUDY Administration Polyethylene Glycol 17 gm 12/09/20 12:30 12/11/20 09:35 Polyethylene Glycol 3350 17 Gm Powd.Pack PO 17 gm QAM JUDY Administration Potassium Chloride 20 meq 12/04/20 17:00 12/11/20 09:34 Potassium Chloride 20 Meq Tablet.Er PO Not Given BIDWM JUDY Saccharomyces Boulardii 250 mg 12/08/20
[2020-12-11] MEDS: PANTOPRAZOLE 40 MG TABLET PO (11:43)
[2020-12-11] MEDS: ENOXAPARIN 40 MG/0.4 ML SYRINGE SUB-Q (11:43)
[2020-12-11 14:00] VITALS: BP 110/64; PULSE 102; RESP 16; TEMP 36.9; O2SAT 89
[2020-12-11] MEDS: ONDANSETRON INJ 4 MG/2 ML VIAL IV PUSH (14:23)
[2020-12-11] MEDS: MAG HYDROX/AL HYDROX/SIMETH 30 ML UDC PO (20:51)
[2020-12-11 20:59] VITALS: BP 110/57; PULSE 107; RESP 16; TEMP 37.1; O2SAT 92
[2020-12-12 05:02] VITALS: BP 108/60; PULSE 101; RESP 16; TEMP 37.2; O2SAT 98
[2020-12-12 05:50] LABS: Hematocrit 31.5 % (37.0-47.0); Hemoglobin 10.1 g/dL (12.0-15.0); Mean Corpuscular HGB Conc 32.1 g/dl (32-36); Mean Corpuscular Hemoglobin 27.1 pg (26-34); Mean Corpuscular Volume 84.5 fl (80-100); Mean Platelet Volume 10.1 fl (7.4-10.4); Platelet Count Result 572 k/mm3 (150-375); Red Blood Count 3.73 M/mm3 (4.2-5.4); Red Cell Distribution Width 13.8 % (11.5-14.5); White Blood Count 10.9 K/mm3 (4.5-10.0)
[2020-12-12] MEDS: metroNIDAZOLE 500 MG/ISO 100ML 500 MG/100 ML BAG 100 MG IVPB ×2 (05:55→13:17)
[2020-12-12] MEDS: METOCLOPRAMIDE HCL 10 MG TABLET PO ×2 (08:42→12:03)
[2020-12-12] MEDS: SACCHAROMYCES BOULARDII 250 MG CAPSULE PO ×2 (08:42→13:17)
[2020-12-12] MEDS: ENOXAPARIN 40 MG/0.4 ML SYRINGE SUB-Q (08:43)
[2020-12-12] MEDS: PANTOPRAZOLE 40 MG TABLET PO (08:44)
[2020-12-12] MEDS: polyethylene glycoL 3350 17 GM POWD.PACK PO (08:44)
[2020-12-12] MEDS: LORATADINE 10 MG TABLET PO (08:44)
--- NOTE | 2020-12-12 10:57 | PCNWS ---
Weekly nutritional screen. Patient is tolerating current diet-Regular. Oral Intake around 50% of meals. Patient and a [place] for breakfast today. Positive BM reported 12/12. No weight loss reported. No nutritional needs at this time.
[2020-12-12] MEDS: ONDANSETRON INJ 4 MG/2 ML VIAL IV PUSH (13:14)
--- NOTE | 2020-12-12 13:37 | PM.DS ---
DS: Admitting Diagnosis Admitting Diagnosis Admitting Diagnosis: Acute abdominal pain, status post sigmoid colectomy DS: Discharge Diagnosis Discharge Diagnosis (1) Anastomotic leak of intestine: Code(s): K91.89 - Other postprocedural complications and disorders of digestive system Status: Acute (2) Superficial postoperative wound infection: Code(s): T81.49XA - Infection following a procedure, other surgical site, initial encounter Status: Acute DS: Summary Hospital Course Reason for hospitalization: acute abdominal pain Hospital Course: this is a 70-year-old woman who was transferred from [facility] on 11/29/2020 with acute abdominal pain. She is status post hand assisted laparoscopic sigmoid colectomy on 11/19/2020 for diverticular disease. The workup at the outside facility was concerning for possible anastomotic leak. Patient was having severe abdominal pain and a CT of her abdomen and pelvis done at the outside facility showed free air and fluid around the anastomosis. She was transferred to [facility] for further treatment. She was started on Zosyn for broad-spectrum antibiotic coverage. On 11/29/2020 she underwent Gastrografin enema which demonstrated anastomotic leak. She was then taken urgently for exploratory laparotomy with takedown of the anastomosis and end descending colostomy. She was continued on broad-spectrum IV antibiotics postoperatively. An NG tube was placed at the time of surgery as well and this was kept in place with anticipation of prolonged postoperative ileus. On postop day 3, she did have some gas and stool in the ostomy, and the NG was removed and she was started on clear liquid diet. She also had the ostomy nurses following her and helping with routine ostomy care. Her diet was gradually advanced over the next couple days, and on 12/05/2020 she seemed to do well with her diet but was still having some nausea and pain. On 12/06/2020 she developed a fever and was having continued nausea. She also was noted to have an increasing white blood count. Chest x-ray and UA were negative for infection. A lower extremity venous ultrasound was also done on 12/06 and this was negative for DVT. She then began developing her redness and drainage at her midline incision and on 12/08/2020, several kareen were removed over the area of redness and the wound was opened partially to allow for drainage of a small abscess that was developing. A repeat CT was done on 12/09/2020 and this did show evidence of a possible left lower quadrant abscess. Percutaneous drainage was performed on 12/10/2020 by Radiology. Minimal serosanguineous fluid was drained. Over the next couple days she continued to gradually improve with white blood count decreasing and fevers resolving. Nausea improved as well. She was tolerating a regular diet. After monitoring the percutaneous drain for several days, there was minimal serous output. The percutaneous drain was removed on 12/12/2020 before discharge. Home health was arranged for wound and ostomy care as well as PT/OT. She was doing well on 12/12/2020 and was then discharged with prescriptions for Levaquin, Flagyl, Reglan, and Zofran. Status at Discharge Functional status at discharge: independent ambulation Overall status at discharge: patient is progressing back to baseline Time Spent with Patient Time attestation: Total time spent providing and/or coordinating discharge services: Time spent: Less than 30 minutes Exam GI: Other: Packing changed in midline wound. Erythema much improved, still scant purulent drainage. Ostomy pink and functioning. Pigtail drain with minimal serous output. DS: Data Data Completed and Pending Completed studies during hospitalization: Pending at discharge 11/29/20 12:41 Surgical [PTH] Routine Labs on day of discharge: Labs from last 24 hours 12/12/20 05:36 WBC 10.9 H RBC 3.73 L Hgb 10.1 L Hct
== END 2020-12-12 14:46 | disposition home health service (06) | DRG 330 ==
LOC: ANH3MED 11-29 13:47 → ANH2MED 12-04 15:25 → ANH3MED 12-04 17:04 → ANHIMU 12-04 17:04
PROVIDERS: Nurse Practitioner Family; Surgery; Admitting Provider Surgery; PCP Surgery; Visit Provider Surgery
PROC: 0DBP0ZZ Excision of Rectum, Open Approach (ICD-10-PCS; CPT 49000; principal; 2020-11-29 12:30)
DX: K91.89 Other postprocedural complications and disorders of digestive system (principal); K57.92 Diverticulitis of intestine, part unspecified, without perforation or abscess without bleeding; T81.32XA Disruption of internal operation (surgical) wound, not elsewhere classified, initial encounter; T81.43XA Infection following a procedure, organ and space surgical site, initial encounter; J95.89 Other postprocedural complications and disorders of respiratory system, not elsewhere classified; J98.11 Atelectasis; B37.3 Candidiasis of vulva and vagina; K21.9 Gastro-esophageal reflux disease without esophagitis; E66.9 Obesity, unspecified; Z68.33 Body mass index [BMI] 33.0-33.9, adult; Z90.710 Acquired absence of both cervix and uterus
CPT/HCPCS: 36415; 71046; 74177; 74270; 75989; 80048; 80053; 81001; 83735; 85025; 85027; 85610; 85730; 87070; 87075; 87205; 88307; 93005; 93970; 96361; 96365; 96375; 96376; A9270; C1729; C1769; G0378; J0131; J0330; J1100; J1170; J1450; J1650; J1741; J1940; J1956; J2250; J2405; J2543; J2704; J2710; J3480; J7040; J7120; Q9967